=== PATIENT | female | born 1940 | race Caucasian/White ===

== ENCOUNTER 2016-07-23 21:43 | Inpatient (IN) ==
[2016-07-23] MEDS ORDERED: 0.9 % Sodium Chloride 1,000 ML IVC ONE (22:15)
--- NOTE | 2016-07-23 22:29 | Emergency Department Note ---
Disposition Clinical Impression: Humerus distal fracture Qualifiers: Encounter type: initial encounter Fracture type: closed Fracture morphology: other fracture Fracture alignment: displaced Laterality: right Qualified Code(s) : S42.491A - Other displaced fracture of lower end of right humerus, initial encounter for closed fracture Disposition: Admitted As Inpatient Condition: Fair Time of Disposition: 23:06 Fall HPI - General Chief Complaint: ED Fall Stated Complaint: fall/arm & foot pain Time Seen by Provider: 07/23/16 22:00 Source: patient, EMS Nursing Notes Reviewed: Yes Vital Signs Reviewed: Yes - History of Present Illness HPI Narrative: Patient is a 25-year-old female who complains of fall 2 hours ago. Patient states she does not know why she fell. Patient states that she fell while trying to use the bathroom she bent over to pull her pants down and fell over and hit the sink with her arms. Patient's states that he tried to assist her down to the floor but then she hit the right side of her head off the sink but said it did not appear that she hit her head too hard. He said that he tried to assist her to the floor. He states that the floor in the bathroom his carpet and this is the third time she has felt in the bathroom. Patient states that it has been a few years since she fell last. Patient denies anti-coagulation use. Patient is on Percocet 10 325 4 times a day for chronic pain. Patient states that her medications did not make her uneasy on her feet. - Related Data Home Medications Medication Instructions Recorded Confirmed Aspirin [Adult Low Dose Aspirin EC] 81 mg PO DAILY 08/22/15 07/24/16 Enalapril Maleate [Vasotec] 10 mg PO BID 08/22/15 07/24/16 Furosemide [Lasix] 20 mg PO DAILY 08/22/15 07/24/16 Insulin Glargine,Hum.rec.anlog 110 unit SQ QAM 08/22/15 07/24/16 [Lantus Solostar] OxyCODONE/APAP 10/325 [Percocet 1 tab PO QID PRN 08/22/15 07/24/16 10/325 MG] Pioglitazone HCl [Actos] 30 mg PO DAILY 08/22/15 07/24/16 Pregabalin [Lyrica] 150 mg PO TID 08/22/15 07/24/16 Simvastatin [Zocor] 20 mg PO DAILY 08/22/15 07/24/16 Cyanocobalamin (B-12) [Vitamin B12] 1 ml IM QMONTH 07/24/16 07/24/16 Levocetirizine Dihydrochloride 5 mg PO DAILY 07/24/16 07/24/16 [Xyzal] Nystatin POWDER [Nystop] 1 appl TP BID 07/24/16 07/24/16 Previous Rx's Medication Instructions Recorded Ferrous Sulfate 325 mg PO BID #60 tablet 08/28/15 Omeprazole [PriLOSEC] 40 mg PO DAILY@0630 #30 capsule 08/28/15 Folic Acid 1 mg PO DAILY #90 tablet 09/24/15 Allergies Allergy/AdvReac Type Severity Reaction Status Date / Time No Known Allergies Allergy Verified 01/10/16 12:42 Review of Systems: Patient denies headache, nausea, vomiting, shortness of breath, chest pain, heart palpitations, abdominal pain, diarrhea. Patient admits to shoulder pain, bilateral upper arm pain, bilateral lower arm pain or hip pain and bilateral thigh pain left foot pain Fall PMH - Past Medical History Medical history: Reports: arthritis, CHF, COPD, diabetes, hypertension Surgical history: Reports: non-contributory Psychiatric history: Reports: depression - Social History Smoking Status: Never smoker Alcohol use: Reports: none Drug use: Reports: none Physical Exam Vital Signs Temperature 98.4 F 07/23/16 21:48 Pulse Rate 82 07/23/16 21:48 Respiratory Rate 18 07/23/16 21:48 Blood Pressure 131/57 07/23/16 21:48 O2 Sat by Pulse Oximetry 100 07/23/16 21:48 Temperature 98.4 F 07/23/16 21:48 Pulse Rate 82 07/23/16 21:48 Respiratory Rate 18 07/23/16 21:48 Blood Pressure 131/57 07/23/16 21:48 O2 Sat by Pulse Oximetry 100 07/23/16 21:48 Oxygen Delivery Oxygen Delivery Room Air -General Appearance: Patient is a 35-year-old female laying down in bed and appears very uncomfortable secondary to pain but is alert and oriented 3. Patient complains of pain everywhere with the exception of cervical spine and abdomen - Head Head exam: atraumatic, normocephalic, normal inspection - Eye Eye exam: Present: normal appearance, PERRL, EOMI, negative for scleral icterus negative for conjunctival pallor - ENT ENT exam: normal exam, normal oropharynx, mucous membranes moist - Neck Neck exam: Present: normal inspection, full ROM, trachea midline, negative JVD - Chest Chest inspection: Present: Patient has bilateral equal rise and fall of chest wall. Tender to palpation - Respiratory Respiratory exam: Clear to auscultation bilaterally without wheezes rales or rhonchi Cardiovascular Cardiovascular exam: Regular rate and rhythm patient has A. fib and ventricular rate of 79 beats. On EKG. No murmurs gallops or rubs. - Abdominal Exam Abdominal exam: Present: soft, nondistended, Non-Tender light and deep palpation in all quadrants. Bowel sounds normoactive throughout all 4 quadrants. Negative for hyper or hyperresonance. - Extremities Exam Extremities exam: Present: Patient has tenderness to palpation bilateral: Shoulders, humerus, elbows, forearms, wrists, hands, femurs, pelvis. Patient has tenderness to palpation left foot. Patient has partially avulsed toenail left foot great toe. - Skin Skin exam: Present: warm, dry, intact, normal color - General Limitations: no limitations General appearance: alert, in distress Course Course Narrative: Patient seen and examined. An injury for patient's pain complaints ordered, labs ordered, EKG ordered head CT ordered Vital Signs Temperature 98.4 F 07/23/16 21:48 Pulse Rate 82 07/23/16 21:48 Respiratory Rate 18 07/23/16 21:48 Blood Pressure 131/57 07/23/16 21:48 O2 Sat by Pulse Oximetry 100 07/23/16 21:48 Temperature 98.1 F 07/25/16 09:45 Pulse Rate 83 07/25/16 09:45 Respiratory Rate 16 07/25/16 09:45 Blood Pressure 134/56 07/25/16 09:45 O2 Sat by Pulse Oximetry 98 07/25/16 09:45 Oxygen Delivery Oxygen Delivery Room Air Fall - [facility] Narrative Medical decision making narrative: Patient condition concerning for musculoskeletal pain secondary to fall. Patient states she is unsure of why she fell. Patient states that she is [place] bathroom when she fell. She is unsure if she lost consciousness or not. CT head been ordered. X-rays to include chest x-ray, shoulder x-ray, bilateral humerus, radius and wrist x-rays ordered, pelvis and bilateral femur and left foot x-rays ordered as well secondary to complaints of pain in those areas secondary to fall. Patient will be signed out to night team. Dr. De León will take over care of patient. - Medical Records Medical records reviewed: Yes I reviewed the patient's medical records. - Lab Data Lab results reviewed: Yes I reviewed the patient's lab results. Lab results narrative: Short CBC 07/23/16 Range/Units 22:43 WBC 8.3 (4.3-11.1) K/mcL Hgb 10.7 L (11.5-15.4) g/dL Hct 33.6 L (35.3-44.9) % Plt Count 213 (140-400) K/mcL Neutrophils # 6.6 (1.6-8.9) K/mcL BMP 07/23/16 Range/Units 22:43 Sodium 135 L (136-145) mEq/L Potassium 5.6 H (3.5-4.5) mEq/L Chloride 101 (98-109) mEq/L Carbon Dioxide 26 (19-29) mEq/L BUN 39 H (7-20) mg/dL Creatinine 1.39 H (0.57-1.11) mg/dL Glucose 222 H (70-99) mg/dL Calcium 9.4 (8.6-10.8) mg/dL Cardiac Enzymes 07/23/16 Range/Units 22:43 Troponin I 0.02 (0-0.03) ng/mL Result diagrams: 07/25/16 04:03 07/25/16 04:03 Lab Results 07/23/16 07/23/16 07/23/16 Range/Units 22:43 22:43 22:43 WBC 8.3 (4.3-11.1) K/mcL RBC 3.72 L (3.82-4.97) M/mcL Hgb 10.7 L (11.5-15.4) g/dL Hct 33.6 L (35.3-44.9) % MCV 90.3 (83.0-100.0) fL MCH 28.8 (28.0-33.3) pg MCHC 31.8 (31.6-35.5) g/dL RDW 15.6 H (11.5-14.5) % Plt Count 213 (140-400) K/mcL MPV 11.0 (9.4-12.4) fL Immature Gran % 0.5 (0-4) % Seg Neutrophils % 79.7 % Lymphocytes % 7.5 % Monocytes % 6.7 % Eosinophils % 5.1 % Basophils % 0.5 % Neutrophils # 6.6 (1.6-8.9) K/mcL Lymphocytes # 0.6 (0.6-4.6) K/mcL Monocytes # 0.6 (0.0-1.3) K/mcL Eosinophils # 0.4 (0.0-0.6) K/mcL Basophils # 0.0 (0.0-0.2) K/mcL Sodium 135 L (136-145) mEq/L Potassium 5.6 H (3.5-4.5) mEq/L Chloride 101 (98-109) mEq/L Carbon Dioxide 26 (19-29) mEq/L BUN 39 H (7-20) mg/dL Creatinine 1.39 H (0.57-1.11) mg/dL Est GFR ( Amer) 45 L (> 60) Est GFR (Non-Af Amer) 37 L (> 60) BUN/Creatinine Ratio 28 H (6-26) Glucose 222 H (70-99) mg/dL POC Glucose (58-89) Calculated Osmolality 296 (280-300) Calcium 9.4 (8.6-10.8) mg/dL Troponin I 0.02 (0-0.03) ng/mL Urine Color (Yellow) Urine Clarity (Clear) Urine pH (5.0-8.0) pH Units Ur Specific [place] (1.010-1.025) Urine Protein (Neg-Trace) mg/dL Urine Glucose (UA) (Normal) mg/dL Urine Ketones (Negative) mg/dL Urine Blood (Negative) Urine Nitrite (Negative) Urine Bilirubin (Negative) Urine Urobilinogen (Normal) mg/dL Ur Leukocyte Esterase (Negative) Urine Microscopic RBC (0-3) per hpf Urine Microscopic WBC (0-3) per hpf Ur Squamous Epith Cells (None-Few) per lpf Urine Bacteria (None-Few) per hpf Hyaline Casts (None-Few) per lpf 07/24/16 07/24/16 Range/Units 01:09 01:43 WBC (4.3-11.1) K/mcL RBC (3.82-4.97) M/mcL Hgb (11.5-15.4) g/dL Hct (35.3-44.9) % MCV (83.0-100.0) fL MCH (28.0-33.3) pg MCHC (31.6-35.5) g/dL RDW (11.5-14.5) % Plt Count (140-400) K/mcL MPV (9.4-12.4) fL Immature Gran % (0-4) % Seg Neutrophils % % Lymphocytes % % Monocytes % % Eosinophils % % Basophils % % Neutrophils # (1.6-8.9) K/mcL Lymphocytes # (0.6-4.6) K/mcL Monocytes # (0.0-1.3) K/mcL Eosinophils # (0.0-0.6) K/mcL Basophils # (0.0-0.2) K/mcL Sodium (136-145) mEq/L Potassium (3.5-4.5) mEq/L Chloride (98-109) mEq/L Carbon Dioxide (19-29) mEq/L BUN (7-20) mg/dL Creatinine (0.57-1.11) mg/dL Est GFR ( Amer) (> 60) Est GFR (Non-Af Amer) (> 60) BUN/Creatinine Ratio (6-26) Glucose (70-99) mg/dL POC Glucose 176 H (58-89) Calculated Osmolality (280-300) Calcium (8.6-10.8) mg/dL Troponin I (0-0.03) ng/mL Urine Color Yellow (Yellow) Urine Clarity Clear (Clear) Urine pH 5.5 (5.0-8.0) pH Units Ur Specific [place] 1.021 (1.010-1.025) Urine Protein Trace (Neg-Trace) mg/dL Urine Glucose (UA) >=1000 H (Normal) mg/dL Urine Ketones Negative (Negative) mg/dL Urine Blood Negative (Negative) Urine Nitrite Negative (Negative) Urine Bilirubin Negative (Negative) Urine Urobilinogen Normal (Normal) mg/dL Ur Leukocyte Esterase Negative (Negative) Urine Microscopic RBC 0-3 (0-3) per hpf Urine Microscopic WBC 0-3 (0-3) per hpf Ur Squamous Epith Cells Many H (None-Few) per lpf Urine Bacteria None Seen (None-Few) per hpf Hyaline Casts None Seen (None-Few) per lpf - EKG Data EKG attestation: Yes I reviewed and interpreted this EKG. EKG results narrative: EKG dated 07/23/2016 at 2234 hrs. shows atrial fibrillation at a rate of 79 bpm with no acute ST elevations or deviations and the leads. Previous EKG dated 10/2015 shows first-degree AV block with what appears underlying sinus rhythm with no acute ST elevations S.B.A.R. - S.B.A.R. Transition of Care: Physician care handed over to Dr. Khalif De León. He has accepted continuation of care. Situation: Demographics, MOA Background: Presenting Complaint, Relevant PMH, Meds, & Allergies Assessment: Vital Signs, Course and respsone to treatment, Exam Concerns, Patient/Family Expectation Recommendation: Barrier(s) to disposition, Recommendation based on pending studies, treatments, or consults S.B.A.R. Report Given to: Dr. Khalif De León S.B.A.RDurga Repor Time: 23:31 Attestation Statement - Attestation Attestation: I examined this patient and my medical decision-making was reviewed with the NEEDLE POLISHER/PA/Advanced Practice Nurse/Resident Physician. I agree with the documented findings, disposition and treatment plan as described except to the extent set forth below. Patient presents to the emergency department after a fall. Patient states she was getting onto the toilet and lost her balance. Her head on the sink. Complaining of pain diffusely in her right arm. Also bilateral leg pain. On exam she is awake and alert. She is holding her right arm to her side and refuses to move. Good radial pulse with hand pink and warm. Diffuse leg pain bilaterally. Will not bend her knees. Dried blood on the left toes. Plan. Patient control and imaging. Will be signed out to overnight babysitter.
[2016-07-23] MEDS ORDERED: *HR* OxyCODONE/APAP 5/325 TABLET PO ONE (22:30)
[2016-07-23 22:52] LABS: Basophils % 0.5 %; Eosinophils # 0.4 K/mcL (0.0-0.6); Eosinophils % 5.1 %; Hematocrit 33.6 % (35.3-44.9); Hemoglobin 10.7 g/dL (11.5-15.4); Immature Granulocytes % 0.5 % (0-4); Lymphocytes # 0.6 K/mcL (0.6-4.6); Lymphocytes % 7.5 %; Mean Corpuscular HGB Conc 31.8 g/dL (31.6-35.5); Mean Corpuscular Hemoglobin 28.8 pg (28.0-33.3); Mean Corpuscular Volume 90.3 fL (83.0-100.0); Monocytes # 0.6 K/mcL (0.0-1.3); Monocytes % 6.7 %; Neutrophils # 6.6 K/mcL (1.6-8.9); Platelet Count 213 K/mcL (140-400); Red Blood Count 3.72 M/mcL (3.82-4.97); Red Cell Distribution Width 15.6 % (11.5-14.5); Segmented Neutrophils % 79.7 %
[2016-07-23 23:02] LABS: Calcium 9.4 mg/dL (8.6-10.8); Potassium 5.6 mEq/L (3.5-4.5)
[2016-07-23] MEDS ORDERED: *HR* HYDROmorphone 2 MG/ML SYRINGE IV ONE (23:51)
[2016-07-24] MEDS ORDERED: *HR* Morphine 2 MG/ML SYRINGE IV ONE ×2 (00:54→03:39)
[2016-07-24 01:48] LABS: Bilirubin,Urine Negative (Negative); Blood,Urine Negative (Negative); Clarity,Urine Clear (Clear); Color,Urine Yellow (Yellow); Glucose,Urine (UA) >=1000 mg/dL (Normal); Ketones,Urine Negative (Negative); Leukocyte Esterase,Urine Negative (Negative); Nitrite,Urine Negative (Negative); PH,Urine 5.5 pH Units (5.0-8.0); Protein,Urine Trace mg/dL (Neg-Trace); Specific Gravity,Urine 1.021 (1.010-1.025); Urobilinogen,Urine Normal (Normal)
[2016-07-24 01:51] LABS: Bacteria,Urine None Seen per hpf (None-Few); Hyaline Casts,Urine None Seen per lpf (None-Few); RBC,Urine 0-3 per hpf (0-3); Squamous Epithelial Cell,Urine Many per lpf (None-Few); WBC,Urine 0-3 per hpf (0-3)
--- NOTE | 2016-07-24 02:12 | Emergency Department Note ---
Disposition Clinical Impression: Humerus distal fracture Qualifiers: Encounter type: initial encounter Fracture type: closed Fracture morphology: other fracture Fracture alignment: displaced Laterality: right Qualified Code(s) : S42.491A - Other displaced fracture of lower end of right humerus, initial encounter for closed fracture Disposition: Admitted As Inpatient Condition: Fair Referrals: NO,PCP [Non-Partnered Physician] - Forms: ED Satisfaction Letter Fall HPI - General Chief Complaint: ED Fall Stated Complaint: fall/arm & foot pain Time Seen by Provider: 07/23/16 22:00 Source: patient, EMS - History of Present Illness HPI Narrative: 75-year-old female with a history of diastolic heart failure, hypertension, insulin dependent diabetes presents to emergency department after a fall at home. She was sitting on a toilet, fell forward landing with 2 outstretched arms. Complains of bilateral arm pain and bilateral leg pain. No abdominal tenderness on examination or overlying signs of injury. Multiple x-rays performed from Drs. prior to sign out. X-ray shows a right distal oblique displaced humeral fracture. Patient having significant pain, unable to get out of bed and lives only with her elderly who cannot care for her to get her home. Plan to admit for pain control and orthopedic consultation. She has some lacerations at the base of her fourth and fifth metatarsal phalangeal joint that suturing would likely not be beneficial. These wounds were cleaned and a sterile dressing was placed. These wounds will need rechecked and possibly reevaluated. No other injury on imaging. No new pain found on reexamination. Discussed with the on-call hospitalist, Dr. Estrada who accepts for admission. - Related Data Home Medications Medication Instructions Recorded Confirmed Aspirin [Adult Low Dose Aspirin EC] 81 mg PO DAILY 08/22/15 09/24/15 Enalapril Maleate [Vasotec] 10 mg PO BID 08/22/15 09/24/15 Furosemide [Lasix] 20 mg PO DAILY 08/22/15 09/24/15 Insulin Aspart Prot/Insuln Asp 2 - 8 unit SQ ACHS 08/22/15 09/24/15 [Novolog Mix 70-30 Flexpen Syrn] Insulin Glargine,Hum.rec.anlog 40 unit SQ QAM 08/22/15 09/24/15 [Lantus Solostar] Metoprolol [Lopressor] 25 mg PO BID 08/22/15 09/24/15 OxyCODONE/APAP 10/325 [Percocet 1 each PO BID 08/22/15 09/24/15 10/325 MG] Pioglitazone HCl [Actos] 30 mg PO DAILY 08/22/15 09/24/15 Pregabalin [Lyrica] 150 mg PO TID 08/22/15 09/24/15 Simvastatin [Zocor] 20 mg PO DAILY 08/22/15 09/24/15 Previous Rx's Medication Instructions Recorded Ferrous Sulfate 325 mg PO BID #60 tablet 08/28/15 Omeprazole [PriLOSEC] 40 mg PO DAILY@0630 #30 capsule 08/28/15 Cyanocobalamin (B-12) [Vitamin B12] 1,000 mcg PO DAILY #90 tablet 09/24/15 Folic Acid 1 mg PO DAILY #90 tablet 09/24/15 Cetirizine HCl [Zyrtec] 10 mg PO DAILY #14 capsule 01/10/16 Fluconazole [Diflucan] 150 mg PO ONCE #1 tablet 01/10/16 Tolnaftate [Tinactin] 30 gm TP BID #60 cream..g. 01/10/16 Cephalexin [Keflex] 500 mg PO TID #21 capsule 02/25/16 Allergies Allergy/AdvReac Type Severity Reaction Status Date / Time No Known Allergies Allergy Verified 01/10/16 12:42 Fall PMH - Past Medical History Medical history: Reports: arthritis, CHF, COPD, diabetes, hypertension Surgical history: Reports: non-contributory Psychiatric history: Reports: depression - Social History Smoking Status: Never smoker Alcohol use: Reports: none Drug use: Reports: none Physical Exam - General Limitations: no limitations General appearance: alert, in distress Course Vital Signs Temperature 98.4 F 07/23/16 21:48 Pulse Rate 82 07/23/16 21:48 Respiratory Rate 18 07/23/16 21:48 Blood Pressure 131/57 07/23/16 21:48 O2 Sat by Pulse Oximetry 100 07/23/16 21:48 Temperature 98.4 F 07/23/16 21:48 Pulse Rate 80 07/24/16 01:47 Respiratory Rate 16 07/24/16 01:47 Blood Pressure 138/62 07/24/16 01:47 O2 Sat by Pulse Oximetry 100 07/24/16 01:47 Oxygen Delivery Oxygen Delivery Room Air Fall - Lab Data Result diagrams: 07/23/16 22:43 07/23/16 22:43 Lab Results 07/23/16 07/23/16 07/23/16 Range/Units 22:43 22:43 22:43 WBC 8.3 (4.3-11.1) K/mcL RBC 3.72 L (3.82-4.97) M/mcL Hgb 10.7 L (11.5-15.4) g/dL Hct 33.6 L (35.3-44.9) % MCV 90.3 (83.0-100.0) fL MCH 28.8 (28.0-33.3) pg MCHC 31.8 (31.6-35.5) g/dL RDW 15.6 H (11.5-14.5) % Plt Count 213 (140-400) K/mcL MPV 11.0 (9.4-12.4) fL Immature Gran % 0.5 (0-4) % Seg Neutrophils % 79.7 % Lymphocytes % 7.5 % Monocytes % 6.7 % Eosinophils % 5.1 % Basophils % 0.5 % Neutrophils # 6.6 (1.6-8.9) K/mcL Lymphocytes # 0.6 (0.6-4.6) K/mcL Monocytes # 0.6 (0.0-1.3) K/mcL Eosinophils # 0.4 (0.0-0.6) K/mcL Basophils # 0.0 (0.0-0.2) K/mcL Sodium 135 L (136-145) mEq/L Potassium 5.6 H (3.5-4.5) mEq/L Chloride 101 (98-109) mEq/L Carbon Dioxide 26 (19-29) mEq/L BUN 39 H (7-20) mg/dL Creatinine 1.39 H (0.57-1.11) mg/dL Est GFR ( Amer) 45 L (> 60) Est GFR (Non-Af Amer) 37 L (> 60) BUN/Creatinine Ratio 28 H (6-26) Glucose 222 H (70-99) mg/dL POC Glucose (58-89) Calculated Osmolality 296 (280-300) Calcium 9.4 (8.6-10.8) mg/dL Troponin I 0.02 (0-0.03) ng/mL Urine Color (Yellow) Urine Clarity (Clear) Urine pH (5.0-8.0) pH Units Ur Specific [place] (1.010-1.025) Urine Protein (Neg-Trace) mg/dL Urine Glucose (UA) (Normal) mg/dL Urine Ketones (Negative) mg/dL Urine Blood (Negative) Urine Nitrite (Negative) Urine Bilirubin (Negative) Urine Urobilinogen (Normal) mg/dL Ur Leukocyte Esterase (Negative) Urine Microscopic RBC (0-3) per hpf Urine Microscopic WBC (0-3) per hpf Ur Squamous Epith Cells (None-Few) per lpf Urine Bacteria (None-Few) per hpf Hyaline Casts (None-Few) per lpf 07/24/16 07/24/16 Range/Units 01:09 01:43 WBC (4.3-11.1) K/mcL RBC (3.82-4.97) M/mcL Hgb (11.5-15.4) g/dL Hct (35.3-44.9) % MCV (83.0-100.0) fL MCH (28.0-33.3) pg MCHC (31.6-35.5) g/dL RDW (11.5-14.5) % Plt Count (140-400) K/mcL MPV (9.4-12.4) fL Immature Gran % (0-4) % Seg Neutrophils % % Lymphocytes % % Monocytes % % Eosinophils % % Basophils % % Neutrophils # (1.6-8.9) K/mcL Lymphocytes # (0.6-4.6) K/mcL Monocytes # (0.0-1.3) K/mcL Eosinophils # (0.0-0.6) K/mcL Basophils # (0.0-0.2) K/mcL Sodium (136-145) mEq/L Potassium (3.5-4.5) mEq/L Chloride (98-109) mEq/L Carbon Dioxide (19-29) mEq/L BUN (7-20) mg/dL Creatinine (0.57-1.11) mg/dL Est GFR ( Amer) (> 60) Est GFR (Non-Af Amer) (> 60) BUN/Creatinine Ratio (6-26) Glucose (70-99) mg/dL POC Glucose 176 H (58-89) Calculated Osmolality (280-300) Calcium (8.6-10.8) mg/dL Troponin I (0-0.03) ng/mL Urine Color Yellow (Yellow) Urine Clarity Clear (Clear) Urine pH 5.5 (5.0-8.0) pH Units Ur Specific [place] 1.021 (1.010-1.025) Urine Protein Trace (Neg-Trace) mg/dL Urine Glucose (UA) >=1000 H (Normal) mg/dL Urine Ketones Negative (Negative) mg/dL Urine Blood Negative (Negative) Urine Nitrite Negative (Negative) Urine Bilirubin Negative (Negative) Urine Urobilinogen Normal (Normal) mg/dL Ur Leukocyte Esterase Negative (Negative) Urine Microscopic RBC 0-3 (0-3) per hpf Urine Microscopic WBC 0-3 (0-3) per hpf Ur Squamous Epith Cells Many H (None-Few) per lpf Urine Bacteria None Seen (None-Few) per hpf Hyaline Casts None Seen (None-Few) per lpf Attestation Statement - Attestation Attestation: I, Juvenal Arenas MD, personally performed a history and physical exam of the patient and discussed their management with the resident. I reviewed the resident's note and agree with the documented findings, medical decision making , and plan of care. This patient was signed out at shift change from Dr. Hayes and Dr. Chapin. Please refer to their notes for complete details of history and physical examination. Patient is a 75-year-old female who fell forward in her bathroom onto the floor. She complains of pain in both arms and both legs and both feet. At shift change she is awaiting x-rays. The x-rays returned and were all negative other than a displaced oblique fracture of the distal right humerus. Patient is very obese and is in a lot of pain. She will be admitted to the hospitalist for pain control and orthopedic consultation in the morning. On examination patient is a well-developed obese elderly female in no acute distress. She is alert and oriented 3. There is no cyanosis or diaphoresis. There is diffuse swelling and tenderness over the distal right upper arm and elbow area. Normal neurovascular function intact distally. The hospitalist, Dr. Estrada, was consulted and accepted admission of the patient.
--- NOTE | 2016-07-24 03:10 | Internal Med History&Physical ---
<Brendon Calderon - Last Filed: 07/24/16 03:08> Date of Encounter: 07/24/16 Time of Encounter: 03:08 Assessment and Plan (1) Humerus distal fracture Current visit: Yes Status: Acute XR showed displaced fracture of lower R humerus from mechanical fall. Pain control with toradol and dilaudid. NPO currently. Consult Ortho This is an intermediate risk surgery and according to the ZENON's revised score patient has a moderate risk of cardiac event with surgery. There is no need further cardia testing. Qualifiers: Encounter type: initial encounter Fracture type: closed Fracture morphology: other fracture Fracture alignment: displaced Laterality: right Qualified Code(s): S42.491A - Other displaced fracture of lower end of right humerus, initial encounter for closed fracture (2) CHF (congestive heart failure) Current visit: Yes Status: Chronic No signs of acute CHF. Recommend discontinuing Pioglizazone as contraindicated in setting of CHF. Qualifiers: Congestive heart failure type: diastolic Congestive heart failure chronicity: chronic Qualified Code(s): I50.32 - Chronic diastolic (congestive ) heart failure (3) Diabetes mellitus Current visit: Yes Status: Chronic Insulin dependent type 2 DM Patient currently NPO Will check BG Q6H with corrective SSI. Qualifiers: Diabetes mellitus type: type 2 Diabetes mellitus complication status: with unspecified complications Diabetes mellitus half-way insulin use: with half-way use Qualified Code(s): E11.8 - Type 2 diabetes mellitus with unspecified complications; Z79.4 - penitentiary (current) use of insulin (4) COPD (chronic obstructive pulmonary disease) Current visit: Yes Status: Chronic Chronic COPD, no signs of acute exacerbations. Qualifiers: COPD type: unspecified COPD Qualified Code(s): J44.9 - Chronic obstructive pulmonary disease, unspecified (5) Anemia Current visit: Yes Status: Chronic History of Iron def anemia. Hgb currently 10.7. Continue to monitor. Qualifiers: Anemia type: iron deficiency Iron deficiency anemia type: unspecified iron deficiency Qualified Code(s): D50.9 - Iron deficiency anemia, unspecified (6) DVT prophylaxis Current visit: No Status: Resolved EPCDs Internal Medicine - H&P: HPI Chief complaint: fall, arm pain Admitted From: Emergency Dept Plans for Post Hospital Care: Home History of present illness: Ms. Aguayo is a 75 year old female that presented to the ED for fall yesterday from the toilet. Fell on outstretched arms, complaining of arm pain at presentation. XR of R arm showed humeral fracture. Patient currently complaining of severe R arm pain that has slightly improved with dilaudid and morphine in the ED. Patient denies syncope, dizziness, weakness, nausea vomiting , diarrhea, abdominal pain, chest pain, or shortness of breath. Past Med Surg Social Fam HX - Past Medical History Medical history: arthritis, CHF (diastolic), COPD, diabetes (type 2), hypertension, other (anemia) Psychiatric history: depression - Past Surgical History Surgical History: non-contributory, cholecystectomy, hip replacement, hysterectomy, other (back surgery) - Social History Smoking Status: Never smoker Smokeless Tobacco Status: No Alcohol use: none Drug use: none - Family History Father Hx Family Cancer: Yes (leukemia) Mother Hx Family Cardiac Disorders: Yes (heart disease) Internal Medicine - H&P: Meds Aspirin [Adult Low Dose Aspirin EC] 81 mg PO DAILY 08/22/15 [History] Enalapril Maleate [Vasotec] 10 mg PO BID 08/22/15 [History] Furosemide [Lasix] 20 mg PO DAILY 08/22/15 [History] Insulin Aspart Prot/Insuln Asp [Novolog Mix 70-30 Flexpen Syrn] 2 - 8 unit SQ ACHS 08/22/15 [History] Insulin Glargine,Hum.rec.anlog [Lantus Solostar] 40 unit SQ QAM 08/22/15 [ History] Metoprolol [Lopressor] 25 mg PO BID 08/22/15 [History] OxyCODONE/APAP 10/325 [Percocet 10/325 MG] 1 each PO BID 08/22/15 [History] Pioglitazone HCl [Actos] 30 mg PO DAILY 08/22/15 [History] Pregabalin [Lyrica] 150 mg PO TID 08/22/15 [History] Simvastatin [Zocor] 20 mg PO DAILY 08/22/15 [History] Ferrous Sulfate 325 mg PO BID #60 tablet 08/28/15 [Rx] Omeprazole [PriLOSEC] 40 mg PO DAILY@0630 #30 capsule 08/28/15 [Rx] Cyanocobalamin (B-12) [Vitamin B12] 1,000 mcg PO DAILY #90 tablet 09/24/15 [Rx] Folic Acid 1 mg PO DAILY #90 tablet 09/24/15 [Rx] Cetirizine HCl [Zyrtec] 10 mg PO DAILY #14 capsule 01/10/16 [Rx] Fluconazole [Diflucan] 150 mg PO ONCE #1 tablet 01/10/16 [Rx] Tolnaftate [Tinactin] 30 gm TP BID #60 cream..g. 01/10/16 [Rx] Cephalexin [Keflex] 500 mg PO TID #21 capsule 02/25/16 [Rx] Allergies No Known Allergies Allergy (Verified 01/10/16 12:42) All Systems PM: A 10-system review of systems was performed and is negative for pertinent findings except as documented above in the HPI. - Constitutional Constitutional: no chills, no fever(s) - EENT Eyes: no change in vision, no pain Ears: no tinnitus Nose, mouth and throat: no dysphagia - Cardiovascular Cardiovascular ROS IM: no chest pain, no diaphoresis, no dyspnea, no lightheadedness, no palpitations, no syncope - Respiratory Respiratory: no cough, no dyspnea, no wheezing, no excessive phlegm production - Gastrointestinal Gastrointestinal: no abdominal pain, no diarrhea, no hematemesis, no hematochezia, no melena, no nausea, no vomiting - Genitourinary Genitourinary: no dysuria, no flank pain, no hematuria - Integumentary Integumentary IM: no rash - Neurological Neurological ROS: no focal weakness - Hematologic/Lymphatic Hematologic/Lymphatic: no easy bleeding - Constitutional Vitals: Temp Pulse Resp BP Pulse Ox 98.4 F 80 16 138/62 100 07/23/16 21:48 07/24/16 01:47 07/24/16 01:47 07/24/16 01:47 07/24/16 01:47 General appearance: Present: cooperative, A&O X 3, pleasant, severe distress, answers questions appropriately - Head Head exam: Present: atraumatic, normocephalic - Eye Eye exam: Present: EOMI, PERRL, conjuntiva pink, sclera anicteric Pupils: Present: PERRL - Neck Neck exam general surgery: Present: full ROM, supple, trachea midline. Absent: lymphadenopathy - Respiratory Respiratory exam: Present: decreased breath sounds, CTAB. Absent: accessory muscle use, chest wall tenderness, rales, rhonchi, wheezes - Cardiovascular Cardiovascular exam: Present: distant heart sounds, RRR, +S1, +S2. Absent: diastolic murmur, gallop, rubs, systolic murmur - GI/Abdominal GI/Abdominal exam: Present: normal bowel sounds, soft, no peritoneal signs. Absent: distended, tenderness - Extremities Exam Extremities exam: Present: warm. Absent: calf tenderness, cyanotic - Neurological Exam Neurological exam: Present: alert, oriented X3, no focal deficits. Absent: facial droop, speech deficit - Skin Skin exam: Present: dry, intact Internal Med - H&P Results - Labs CBC & Chem 7: 07/23/16 22:43 07/23/16 22:43 <Brandon Paredes H - Last Filed: 07/24/16 03:45> Date of Encounter: 07/24/16 Internal Medicine - H&P: HPI History of present illness: Ms. Aguayo is a 75 year old female All Systems PM: A 10-system review of systems was performed and is negative for pertinent findings except as documented above in the HPI. - Constitutional Vitals: Temp Pulse Resp BP Pulse Ox 98.4 F 80 16 138/62 100 07/23/16 21:48 07/24/16 01:47 07/24/16 01:47 07/24/16 01:47 07/24/16 01:47 Internal Med - H&P Results - Labs CBC & Chem 7: 07/23/16 22:43 07/23/16 22:43 - Attending Attestation Right upper extremity immobilization Additional past medical history osteoarthritis, morbid obesity and depression. I examined this patient and my medical decision-making was reviewed with the CHECKER STOCKER/PA/Advanced Practice Nurse/Resident Physician. I agree with the documented findings, disposition and treatment plan as described except to the extent set forth below.
[2016-07-24] MEDS ORDERED: Dextrose Gel 15 GM PO PRN ×2 (03:11)
[2016-07-24] MEDS ORDERED: Ondansetron 4 MG/2 ML VIAL IVP PRN (03:11)
[2016-07-24] MEDS ORDERED: D5% in Water 1,000 ML IV PRN (03:11)
[2016-07-24] MEDS ORDERED: Naloxone 0.4 MG/ML INJ IVP PRN (03:11)
[2016-07-24] MEDS ORDERED: *HR* Dextrose 50 % in Water (Syg) 50 ML SYRINGE IVP PRN (03:11)
[2016-07-24] MEDS ORDERED: Ketorolac 30 MG/ML VIAL IVP PRN (03:20)
[2016-07-24] MEDS: 0.9 % Sodium Chloride 1,000 ML IVC SCH ×2 (03:52→10:04)
[2016-07-24] MEDS: *HR* HYDROmorphone (PF) 1 MG/ML SYRINGE IVP PRN (05:21)
[2016-07-24 05:40] LABS: Basophils # 0.1 K/mcL (0.0-0.2); Basophils % 0.5 %; Eosinophils # 0.4 K/mcL (0.0-0.6); Eosinophils % 4.2 %; Hemoglobin 9.8 g/dL (11.5-15.4); Immature Granulocytes % 0.5 % (0-4); Lymphocytes # 0.9 K/mcL (0.6-4.6); Lymphocytes % 8.8 %; Mean Corpuscular HGB Conc 31.6 g/dL (31.6-35.5); Mean Corpuscular Hemoglobin 28.8 pg (28.0-33.3); Mean Corpuscular Volume 91.2 fL (83.0-100.0); Mean Platelet Volume 11.4 fL (9.4-12.4); Monocytes # 0.8 K/mcL (0.0-1.3); Monocytes % 7.7 %; Neutrophils # 7.8 K/mcL (1.6-8.9); Platelet Count 195 K/mcL (140-400); Red Cell Distribution Width 15.7 % (11.5-14.5); Segmented Neutrophils % 78.3 %
[2016-07-24] MEDS: Insulin LISPRO 300 UNITS/3 ML VIAL SQ SCH ×3 (05:43→17:47)
[2016-07-24 05:55] LABS: Calcium 9.2 mg/dL (8.6-10.8); Potassium 5.5 mEq/L (3.5-4.5)
[2016-07-24] MEDS: Pantoprazole 40 MG VIAL IVP SCH (07:41)
[2016-07-24] MEDS: Pregabalin 75 MG CAPSULE PO SCH ×3 (07:42→20:45)
[2016-07-24] MEDS: Folic Acid 1 MG TABLET PO SCH (07:42)
[2016-07-24] MEDS ORDERED: Furosemide 40 MG/4 ML VIAL IVP ONE (09:11)
[2016-07-24] MEDS ORDERED: Calcium Gluconate 2,000 MG in D5% in Water 100 ML IVPB ONE (09:11)
[2016-07-24] MEDS ORDERED: Magnesium Sulfate 1 GM in D5% in Water 100 ML IVPB ONE (09:11)
[2016-07-24] MEDS ORDERED: Piperacillin/Tazobactam 3.375 GM in D5% in Water (Mini-Bag+) 100 ML IVPB SCH ×2 (10:21→16:30)
[2016-07-24] MEDS ORDERED: Aminoglycoside Consult 1 EACH MC ONE (10:47)
--- NOTE | 2016-07-24 10:56 | Orthopedic Consult Note ---
Date of Encounter: 07/24/16 Time of Encounter: 10:54 Assessment and Plan (1) Humerus distal fracture Current Visit: Yes Status: Acute Right distal humerus fracture will require surgical fixation. Plan for ORIF tomorrow. Procedure as well as r/b/a were discussed with patient and family and expressed understanding. consent signed by and placed in chart. Will need to be NPO after midnight tonight. Continue pain control per hospitalist. Avoid motion of right arm. Keep elevated and ice the right elbow. Qualifiers: Encounter type: initial encounter Fracture type: closed Fracture morphology: other fracture Fracture alignment: displaced Laterality: right Qualified Code(s): S42.491A - Other displaced fracture of lower end of right humerus, initial encounter for closed fracture History of Present Illness Chief complaint: right arm pain HPI: Ms. Aguayo is a 75 year old female who presented to the ER last night after she lost her balance trying to walk to the toilet around 10pm last night. Fell with both arms outstretched. She states her whole body hurts and is aching but worst pain in is right elbow radiating to hand and shoulder. She does complain of numbness and tingling to the right hand. States she had some numbness intermittent before the fall but this is now constant. Pain controlled on exam with pain medication. She was also found to have a foot laceration that patient was unaware of due to diabetic neuropathy. Denies hitting head or LOC. Denies chest pain, SOB, fevers. Past Med Surg Social Fam HX - Past Medical History Medical history: arthritis, CHF, COPD, DVT, diabetes, hypertension, other Psychiatric history: depression - Past Surgical History Surgical History: non-contributory, cholecystectomy, hysterectomy, knee replacement, other - Social History Smoking Status: Never smoker Smokeless Tobacco Status: No Alcohol use: none Drug use: none - Family History Father History Unknown: Yes Hx Family Cancer: Yes (leukemia) Mother History Unknown: Yes Hx Family Cardiac Disorders: Yes (heart disease) Medications and Allergies Aspirin [Adult Low Dose Aspirin EC] 81 mg PO DAILY 08/22/15 [History] Enalapril Maleate [Vasotec] 10 mg PO BID 08/22/15 [History] Furosemide [Lasix] 20 mg PO DAILY 08/22/15 [History] Insulin Glargine,Hum.rec.anlog [Lantus Solostar] 110 unit SQ QAM 08/22/15 [ History] OxyCODONE/APAP 10/325 [Percocet 10/325 MG] 1 tab PO QID PRN 08/22/15 [History] Pioglitazone HCl [Actos] 30 mg PO DAILY 08/22/15 [History] Pregabalin [Lyrica] 150 mg PO TID 08/22/15 [History] Simvastatin [Zocor] 20 mg PO DAILY 08/22/15 [History] Ferrous Sulfate 325 mg PO BID #60 tablet 08/28/15 [Rx] Omeprazole [PriLOSEC] 40 mg PO DAILY@0630 #30 capsule 08/28/15 [Rx] Folic Acid 1 mg PO DAILY #90 tablet 09/24/15 [Rx] Cyanocobalamin (B-12) [Vitamin B12] 1 ml IM QMONTH 07/24/16 [History] Levocetirizine Dihydrochloride [Xyzal] 5 mg PO DAILY 07/24/16 [History] Nystatin POWDER [Nystop] 1 appl TP BID 07/24/16 [History] Allergies No Known Allergies Allergy (Verified 01/10/16 12:42) All Systems Reviewed: A 10-system review of systems was performed and is negative for pertinent findings except as documented above in the HPI. - Constitutional Constitutional: as per HPI - Cardiovascular Cardiovascular: as per HPI - Respiratory Respiratory: as per HPI - Musculoskeletal Musculoskeletal: as per HPI Physical Exam - Constitutional Vitals: Temp Pulse Resp BP Pulse Ox 98.4 F 69 16 95/62 95 07/24/16 06:46 07/24/16 09:33 07/24/16 06:46 07/24/16 09:33 07/24/16 06:46 - Elbow right Location of pain elbow: anterior, posterior Pain modifiers elbow: with motion (There is moderate swelling to the right elbow , ROM of elbow and shoulder was not tested due to known fracture, unable to make full fist secondary to pain in elbow, brisk cap refill, decreased sensation to digits) Swelling: Yes Results - Labs Result Diagrams: 07/24/16 04:55 07/24/16 04:55 Labs: Abnormal lab results RBC 3.40 M/mcL (3.82-4.97) L 07/24/16 04:55 Hgb 9.8 g/dL (11.5-15.4) L 07/24/16 04:55 Hct 31.0 % (35.3-44.9) L 07/24/16 04:55 RDW 15.7 % (11.5-14.5) H 07/24/16 04:55 Potassium 5.5 mEq/L (3.5-4.5) H 07/24/16 04:55 BUN 34 mg/dL (7-20) H 07/24/16 04:55 Creatinine 1.17 mg/dL (0.57-1.11) H 07/24/16 04:55 Est GFR ( Amer) 54 (> 60) L 07/24/16 04:55 Est GFR (Non-Af Amer) 45 (> 60) L 07/24/16 04:55 BUN/Creatinine Ratio 29 (6-26) H 07/24/16 04:55 Glucose 144 mg/dL (70-99) H 07/24/16 04:55 POC Glucose 146 (58-89) H 07/24/16 05:33 Urine Glucose (UA) >=1000 mg/dL (Normal) H 07/24/16 01:43 Ur Squamous Epith Cells Many per lpf (None-Few) H 07/24/16 01:43 H & H 07/24/16 Range/Units 04:55 Hgb 9.8 L (11.5-15.4) g/dL Hct 31.0 L (35.3-44.9) % All other labs normal. - Diagnostic results Shoulder x-ray: report reviewed, image reviewed Elbow x-ray: report reviewed, image reviewed Consult Discharge Plan - Plan Referrals: Amy Ryan MD [Primary Care Provider] - - Attending Attestation Case and plan of care was discussed with the supervising physician who was available for all aspects of care.
[2016-07-24] MEDS: Acetaminophen 325 MG TABLET PO PRN (11:35)
[2016-07-24] MEDS ORDERED: Vancomycin 1,750 MG in D5% in Water 250 ML IVPB SCH (12:00)
[2016-07-24] MEDS: Vancomycin 1,500 MG in D5% in Water 250 ML IVPB SCH (12:25)
--- NOTE | 2016-07-24 12:51 | Internal Med Progress Note ---
Date of Encounter: 07/24/16 Time of Encounter: 10:15 - Subjective Interval history: Patient seen/eval. Longstanding debility, diabetes, diabetic neuropathy. Was seen at [facility] for right heel ulcer, had wound vacc, unsure of antibiotics. She has no feeling from her knees down. She would rise from her motorized wheelchair and then fall, catching herself on Left arm, sustaining left distal humerus fracture. She has left foot plantar laceration toes 3-5, she does not know how it happened. - Constitutional Vitals: Temp Pulse Resp BP Pulse Ox 97.7 F 68 16 92/52 97 07/24/16 11:33 07/24/16 11:33 07/24/16 11:33 07/24/16 11:33 07/24/16 11:33 General appearance: Present: cooperative, A&O X 3, pleasant, severe distress, answers questions appropriately Internal Medicine: Result - Labs CBC & Chem 7: 07/24/16 04:55 07/24/16 04:55 Labs: Short CBC 07/24/16 Range/Units 04:55 WBC 10.0 (4.3-11.1) K/mcL Hgb 9.8 L (11.5-15.4) g/dL Hct 31.0 L (35.3-44.9) % Plt Count 195 (140-400) K/mcL Neutrophils # 7.8 (1.6-8.9) K/mcL BMP 07/24/16 04:55 Sodium 138 Potassium 5.5 H Chloride 107 Carbon Dioxide 23 BUN 34 H Creatinine 1.17 H Glucose 144 H Calcium 9.2 - VTE Documentation of Mechanical Device: Intermittent pneumatic compression device Consult Discharge Plan - Plan Referrals: Amy Ryan MD [Primary Care Provider] -
--- NOTE | 2016-07-24 13:00 | Event Note ---
<Deshawn Gtz - Last Filed: 07/24/16 13:04> Date of Encounter: 07/24/16 Time of Encounter: 10:15 Patient seen/eval. Longstanding debility, diabetes, diabetic neuropathy. Was seen at [facility] for right heel ulcer, had wound vacc, unsure of antibiotics. She has no feeling from her knees down. She would rise from her motorized wheelchair and then fall, catching herself on Right arm, sustaining right distal humerus fracture. She has left foot plantar laceration toes 3-5, she does not know how it happened. is at bedside and affirms general events , believes that her left foot laceration is from a washing basin. H&P from earlier this morning reviewed. Imaging reviewed. Exam Gen Morbidly obese, cooperative HEENT ATNC EOMI nonicteric, mmm no mucositis Neck trachea midline, soft, no cervical LAD CV S1 S2, no mrg appreciated Resp dim 2* habitus, no crackles or wheeze, no conversational dyspnea Abd obese, soft nt nd Ext Right arm with distal humerus disfiguration, erythema, swelling, warm to touch. Distal pulse and sensation intact. Right foot lateral heel plantar aspect with stage III ulceration, some granulation tissue, no active oozing Left foot toes 3-5 with deep laceration on plantar aspect, bloody, with left foot 1st toe nail impaction. Patient has no cutaneous sensation distally from her knees. Started broad spectrum antibiotics due to right foot heel ulcer and left foot laceration. Consulted podiatry service for left foot laceration and right heel ulcer. Appreciate orthopedic service input regarding right distal humerus fracture. <Karan Levine - Last Filed: 07/24/16 18:29> Date of Encounter: 07/24/16 I examined this patient and my medical decision-making was reviewed with the MAGAZINE EDITOR/PA/Advanced Practice Nurse/Resident Physician. I agree with the documented findings, disposition and treatment plan as described except to the extent set forth below. Continue with broad spectrum antibiotics, might deescalate according to clinical picture.
[2016-07-24] MEDS: *HR* Heparin 5,000 UNIT/ML VIAL SQ SCH ×2 (14:14→21:45)
[2016-07-24] MEDS ORDERED: Ketorolac 15 MG/ML VIAL IVP ONE (15:56)
--- NOTE | 2016-07-24 19:17 | Anesthesia Evaluation PreOp ---
Date of Encounter: 07/24/16 Time of Encounter: 19:00 - Past History Planned Operation: ORIF Rt Humerus Fracture Cardiac History: CHF (Hx CHF...recent Echo LVEF 65%), HTN, Other (Chronic Anemia ) Pulmonary History: COPD ASSOCIATE FINANCIAL ADVISOR History: Denies Any Significant HX Other Medical History: Diabetes Type II, Other (MO) Anesthesia History: No Prior Anesthetic Complications : No Alcohol Use: none Drug use: none Medications and Allergies Aspirin [Adult Low Dose Aspirin EC] 81 mg PO DAILY 08/22/15 [History] Enalapril Maleate [Vasotec] 10 mg PO BID 08/22/15 [History] Furosemide [Lasix] 20 mg PO DAILY 08/22/15 [History] Insulin Glargine,Hum.rec.anlog [Lantus Solostar] 110 unit SQ QAM 08/22/15 [ History] OxyCODONE/APAP 10/325 [Percocet 10/325 MG] 1 tab PO QID PRN 08/22/15 [History] Pioglitazone HCl [Actos] 30 mg PO DAILY 08/22/15 [History] Pregabalin [Lyrica] 150 mg PO TID 08/22/15 [History] Simvastatin [Zocor] 20 mg PO DAILY 08/22/15 [History] Ferrous Sulfate 325 mg PO BID #60 tablet 08/28/15 [Rx] Omeprazole [PriLOSEC] 40 mg PO DAILY@0630 #30 capsule 08/28/15 [Rx] Folic Acid 1 mg PO DAILY #90 tablet 09/24/15 [Rx] Cyanocobalamin (B-12) [Vitamin B12] 1 ml IM QMONTH 07/24/16 [History] Levocetirizine Dihydrochloride [Xyzal] 5 mg PO DAILY 07/24/16 [History] Nystatin POWDER [Nystop] 1 appl TP BID 07/24/16 [History] Allergies No Known Allergies Allergy (Verified 01/10/16 12:42) - Meds/Allergy Pre-op Review Medications Reviewed: Yes Allergies Reviewed: Yes Beta Blockers on Current Med List: Yes Anesthesia Results - Labs 07/24/16 04:55 07/24/16 04:55 - Imaging EKG: report reviewed (SR First Degree AV Block) Additional studies: Echo from -2015 LVEF 65% Anesthesia Exam O2 Sat Height 1.57 m Height 1.6 m Weight 115.212 kg Weight 113.398 kg O2 Sat by Pulse Oximetry 96 O2 Sat by Pulse Oximetry 97 O2 Sat by Pulse Oximetry 95 O2 Sat by Pulse Oximetry 94 O2 Sat by Pulse Oximetry 100 O2 Sat by Pulse Oximetry 100 Vital Signs Temp Pulse Resp BP Pulse Ox 98.4 F 82 18 131/57 100 07/23/16 21:48 07/23/16 21:48 07/23/16 21:48 07/23/16 21:48 07/23/16 21:48 Height: 5'2 Weight: 254 lbs NPO (# of Hours): MN - HEENT Pupil (Motor): Pupils equal, EOMI Mallampati: III Teeth: Edentulous Oral Opening: Less than or equal to 3 - ASSOCIATE FINANCIAL ADVISOR LOC: Oriented ASSOCIATE FINANCIAL ADVISOR Motor: Normal RUE, Normal LUE, Normal RLE, Normal LLE, Normal Face ASSOCIATE FINANCIAL ADVISOR Sensory: Normal: RUE, LUE, RLE, LLE, Face - Cardiac Rhythm: Regular Murmur: None JVD: No Carotid Bruit: No - Pulmonary Breath Sounds: bilateral Clear Respiratory Effort: Symmetrical Anesthesia Assess/Plan ASA Score: 3 (MO DM Anemia COPD) Modified Zheng Scale for Level of Consciousness: Cooperative, oriented, and tranquil Anesthetic Plan: General Monitoring Plan: Standard Monitors Recovery Plan: PACU (Discussed GA, agrees to proceed)
--- NOTE | 2016-07-24 20:23 | Electrocardiograph Report ---
[facility] Test Date: 2016-07-23 Pat Name: [facility] Department: 103 Room: [facility] Gender: F Critical Care Cns: PRISCILLA : 1940 Requested By: Jesus Hayes Order Number: [id number] Reading MD: Jared Sanchez MD Measurements Intervals [place] Rate: 79 P: MT: 0 QRS: -25 QRSD: 98 T: 59 QT: 372 QTc: 407 Interpretive Statements ATRIAL FIBRILLATION Electronically Signed On 07-24-16 20:22:25 EST by Jared Sanchez MD
[2016-07-24] MEDS: Piperacillin/Tazobactam 3.375 GM in D5% in Water (Mini-Bag+) 100 ML IVPB SCH (20:45)
[2016-07-25] MEDS: Acetaminophen 325 MG TABLET PO PRN (01:47)
[2016-07-25] MEDS: Insulin LISPRO 300 UNITS/3 ML VIAL SQ SCH ×4 (01:47→19:05)
[2016-07-25] MEDS: Vancomycin 1,500 MG in D5% in Water 250 ML IVPB SCH (01:47)
[2016-07-25] MEDS: 0.9 % Sodium Chloride 1,000 ML IVC SCH (01:49)
[2016-07-25] MEDS: Piperacillin/Tazobactam 3.375 GM in D5% in Water (Mini-Bag+) 100 ML IVPB SCH ×2 (03:52→23:14)
[2016-07-25] MEDS: *HR* HYDROmorphone (PF) 1 MG/ML SYRINGE IVP PRN ×3 (03:53→23:21)
[2016-07-25 04:24] LABS: Basophils % 0.2 %; Eosinophils # 0.3 K/mcL (0.0-0.6); Eosinophils % 5.9 %; Immature Granulocytes % 0.2 % (0-4); Lymphocytes # 0.4 K/mcL (0.6-4.6); Lymphocytes % 7.6 %; Mean Corpuscular HGB Conc 31.7 g/dL (31.6-35.5); Mean Corpuscular Hemoglobin 28.8 pg (28.0-33.3); Mean Corpuscular Volume 90.9 fL (83.0-100.0); Mean Platelet Volume 11.2 fL (9.4-12.4); Monocytes # 0.4 K/mcL (0.0-1.3); Monocytes % 6.6 %; Neutrophils # 4.6 K/mcL (1.6-8.9); Platelet Count 137 K/mcL (140-400); Red Blood Count 2.64 M/mcL (3.82-4.97); Red Cell Distribution Width 15.7 % (11.5-14.5); Segmented Neutrophils % 79.5 %
[2016-07-25 04:32] LABS: Hemoglobin 7.6 g/dL (11.5-15.4)
[2016-07-25 04:36] LABS: Calcium 8.3 mg/dL (8.6-10.8); Potassium 5.6 mEq/L (3.5-4.5)
[2016-07-25 04:50] LABS: Hemoglobin A1C 6.9 %
[2016-07-25] MEDS ORDERED: Sodium Bicarbonate 75 MEQ in 0.45 % Sodium Chloride 1,000 ML IVC SCH ×2 (05:45→17:56)
[2016-07-25] MEDS: Nystatin POWDER 30 GM BOTTLE TP SCH ×3 (06:17→23:22)
[2016-07-25] MEDS ORDERED: Albuterol Neb 7.5 MG, Sodium Chloride for inhalation 12 ML IH ONE (06:21)
--- NOTE | 2016-07-25 06:38 | Event Note ---
Date of Encounter: 07/25/16 Time of Encounter: 05:05 Called to see patient, RN concerned about right arm swelling. She sustained a distal humeral fracture. Obvious swelling in the lower arm, elbow and forearm with traumatic purpura anteriorly. No fluctuancy Very good 2+ radial and ulnar pulses. Very good capillary refill. <2s Hyperkalemia 5.6 hEMOGLOBIn DROPPED 3.1 G/DL FROM 10.7 TO 7.6 gldl IMP Distal right humeral fracture Present, go distal circulation, but remains at risk of compartment syndrome. Hyperkalemia Acute renal injury Suspect crush injury/rhabdomyolysis Hemorrhagic anemia PLAN Elevate arm, apply ice pads DC NS, start 0.45% NS with 75 mEq of KCl to run at 125 mls/hr Bolus bicarb 50 mEQ x 1 Albuterol neb over 1 hour Obtain CPK DC Vancomycin, further increases risk of renal injury, OK to continue Zosyn Hold heparin subcut., apply TEDs Transfuse [address] in telemetry I called Dr Jc and informed him of the patients status, he will be in to perform ORIF today. Cancel order for doppler, not indicated as she has 2+ pulses in radial and ulnar arteries.
--- NOTE | 2016-07-25 08:23 | Internal Med Progress Note ---
<Deshawn Gtz - Last Filed: 07/25/16 17:28> Date of Encounter: 07/25/16 Time of Encounter: 08:20 - Assessment and plan (1) Humerus distal fracture Current Visit: Yes Status: Acute Assessment and plan: Right distal humerus fracture s/p mechanical fall. Evidenced on Right humerus xray. Cont pain control measures. Orthopedic service following, anticipate going to OR later today. Qualifiers: Encounter type: initial encounter Fracture type: closed Fracture morphology: other fracture Fracture alignment: displaced Laterality: right Qualified Code(s): S42.491A - Other displaced fracture of lower end of right humerus, initial encounter for closed fracture (2) Rhabdomyolysis Current Visit: Yes Status: Acute Assessment and plan: Evidenced by elevated CK, K+ in setting of right humerus fracture. Hyperkalemia may be reflective of myocyte destruction. Agree with continuing IVF with bicarbonate. Monitor renal function. Anticipate improvement following fracture repair of Right humerus. Qualifiers: Rhabdomyolysis type: traumatic Encounter type: initial encounter Qualified Code(s): T79.6XXA - Traumatic ischemia of muscle, initial encounter (3) Anemia Current Visit: Yes Status: Acute Assessment and plan: Normocytic anemia, with likely multifactorial etiologies. Suspect acute blood loss from humerus fracture, chronic disease per diabetes and diabetic foot ulcer. Patient affirmed no bloody stool/urine. Hgb 9.8 to 7.6 Transfuse 1 U PRBC at this time. Obtain Iron profile and ferritin. Qualifiers: Anemia type: iron deficiency Iron deficiency anemia type: unspecified iron deficiency Qualified Code(s): D50.9 - Iron deficiency anemia, unspecified (4) Diabetes mellitus Current Visit: Yes Status: Chronic Assessment and plan: Insulin-dependant diabetic. 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 (6) Diabetic ulcer of heel Current Visit: Yes Status: Chronic Assessment and plan: Per wound care and podiatry recs. Keep elevated and off pressure. (7) Laceration of toe of left foot Current Visit: Yes Status: Acute Assessment and plan: Appreciate podiatry input. Discussed with sr. director Dr. Miguel, consider power-washing and suturing while in OR today. Qualifiers: Encounter type: subsequent encounter Qualified Code(s): S91.119D - Laceration without foreign body of unspecified toe without damage to nail, subsequent encounter (8) DVT prophylaxis Current Visit: No Status: Resolved Assessment and plan: EPCD in light of anemia - Subjective Interval history: Patient seen/eval. She is resting in bed. Interval events noted, Hgb drop to 7.6 , had 1 U PRBC ordered, has IVF with bicarb. She affirms right arm discomfort, voices no other complaints. Anticipate going to OR later today. - Constitutional Vitals: Temp Pulse Resp BP Pulse Ox 99.1 F 84 16 126/53 94 L 07/25/16 06:59 07/25/16 06:59 07/25/16 06:59 07/25/16 06:59 07/25/16 06:59 General appearance: Present: cooperative, morbidly obese, pleasant, answers questions appropriately - Head Head exam: Present: atraumatic, normocephalic - Eye Eye exam: Present: EOMI, sclera anicteric - ENT ENT exam: Present: mucous membranes moist - Neck Neck exam general surgery: Present: normal inspection, trachea midline - Respiratory Respiratory exam: Present: rhonchi (scant diffuse ronchi, diminished 2* habitus , no wheeze) - Cardiovascular Cardiovascular exam: Present: +S1, +S2. Absent: JVD - GI/Abdominal GI/Abdominal exam: Present: soft, no peritoneal signs. Absent: distended, tenderness - Extremities Exam Extremities exam: Present: warm. Absent: mottling Additional comments: Right arm with distal humerus disfiguration, erythema, swelling, warm to touch. Distal pulse and sensation intact. Right foot lateral heel plantar aspect ulcer, with pressure dressing, elevated proximally. Left foot bandaged, cdi. Internal Medicine: Result - Labs CBC & Chem 7: 07/25/16 04:03 07/25/16 04:03 Labs: Short CBC 07/25/16 Range/Units 04:03 WBC 5.8 (4.3-11.1) K/mcL Hgb 7.6 L D (11.5-15.4) g/dL Hct 24.0 L (35.3-44.9) % Plt Count 137 L (140-400) K/mcL Neutrophils # 4.6 (1.6-8.9) K/mcL BMP 07/25/16 04:03 Sodium 134 L Potassium 5.6 H Chloride 106 Carbon Dioxide 23 BUN 35 H Creatinine 1.46 H Glucose 164 H Calcium 8.3 L - VTE Documentation of Mechanical Device: Intermittent pneumatic compression device Consult Discharge Plan - Plan Referrals: Amy Ryan MD [Primary Care Provider] - <Karan Levine - Last Filed: 07/25/16 18:23> - Constitutional Vitals: Temp Pulse Resp BP Pulse Ox 98.1 F 69 15 158/83 100 07/25/16 17:59 07/25/16 17:59 07/25/16 17:59 07/25/16 17:59 07/25/16 17:59 Internal Medicine: Result - Labs CBC & Chem 7: 07/25/16 17:26 07/25/16 04:03 Labs: Short CBC 07/25/16 07/25/16 Range/Units 04:03 17:26 WBC 5.8 (4.3-11.1) K/mcL Hgb 7.6 L D 9.2 L D (11.5-15.4) g/dL Hct 24.0 L 29.5 L (35.3-44.9) % Plt Count 137 L (140-400) K/mcL Neutrophils # 4.6 (1.6-8.9) K/mcL BMP 07/25/16 04:03 Sodium 134 L Potassium 5.6 H Chloride 106 Carbon Dioxide 23 BUN 35 H Creatinine 1.46 H Glucose 164 H Calcium 8.3 L - Impressions Impressions Fluoroscopy 07/25/16 14:00 IMPRESSION: Intraprocedural fluoroscopic spot images as above. See separate procedure report for more information. D/ / Isaias Masters MD / Isaias Masters MD Interpreting Provider: Isaias Masters MD Humerus X-Ray 07/25/16 14:00 IMPRESSION: Intraprocedural fluoroscopic spot images as above. See separate procedure report for more information. D/ / Isaias Masters MD / Isaias Masters MD Interpreting Provider: Isaias Masters MD - Attending Attestation I examined this patient and my medical decision-making was reviewed with the AUTO SERVICER/PA/Advanced Practice Nurse/Resident Physician. I agree with the documented findings, disposition and treatment plan as described except to the extent set forth below. Going to the OR today as per ortho, continue with pain control meds.
[2016-07-25] MEDS ORDERED: Nystatin POWDER 30 GM BOTTLE TP SCH (09:00)
[2016-07-25] MEDS: Folic Acid 1 MG TABLET PO SCH (09:13)
[2016-07-25] MEDS: Pregabalin 75 MG CAPSULE PO SCH ×2 (09:13→23:13)
[2016-07-25] MEDS ORDERED: 0.9 % Sodium Chloride 250 ML ONE (09:16)
[2016-07-25] MEDS: Pantoprazole 40 MG VIAL IVP SCH (09:20)
[2016-07-25 10:01] LABS: % Iron Saturation 17 % (15-50); Transferrin 188 mg/dL (180-382)
[2016-07-25 10:03] LABS: Iron 44 mcg/dL (50-170)
[2016-07-25 10:21] LABS: Ferritin 72 ng/ml (5-204)
--- NOTE | 2016-07-25 12:54 | Podiatry Consult Note ---
Date of Encounter: 07/25/16 Time of Encounter: 12:51 Assessment and Plan (1) Laceration of toe of left foot Current visit: Yes Status: Acute At this time the patient was instructed that we need to surgically close the lacerations on the plantar aspect of her foot after washing it thoroughly in the operating room. The patient was agreeable.Patient was informed of the risks and complications of surgery. These may include but are not limited to the following; nerve damage, numbness, tingling, RSD/CRPS, loss of motor function, loss of toe, loss of limb, loss of life, ischemia, wound healing issues, infection, scarring, keloid formation, continued pain, arthritis, non- union, mal-union, prominent hardware, displaced hardware, reaction to hardware, the need to remove hardware, bruising, continued limp, the need for future surgery, over correction, under correction, chronic swelling, the need for physical therapy, stiffness of joints, ulceration, slow healing, wound dehiscence, reaction to implant, reaction to sutures. The patient was informed of the possible conservative treatments available which may include but are not limited to the following: Orthotics, bracing, non -weight bearing, physical therapy, padding, taping, steroid injections, NSAIDS, casting. The patient was given the option to seek a second opinion. It was explained that surgery is an art and not an exact science therefore results cannot be guaranteed. All the patients questions and concerns were addressed. Patient agrees to have the surgery despite the possible risks and complications. Absolutely no guarantees were given or implied. Qualifiers: Encounter type: subsequent encounter Qualified Code(s): S91.119D - Laceration without foreign body of unspecified toe without damage to nail, subsequent encounter History of Present Illness Chief complaint: laceration toes of left foot digits 3,4,5 HPI: Ms. Aguayo is a 75 year old female Past Med Surg Social Fam HX - Past Medical History Medical history: arthritis, CHF, COPD, diabetes, hypertension Psychiatric history: depression - Past Surgical History Surgical History: non-contributory - Social History Smoking Status: Never smoker Smokeless Tobacco Status: No Alcohol use: none Drug use: none - Family History Father History Unknown: Yes Hx Family Cancer: Yes (leukemia) Mother History Unknown: Yes Hx Family Cardiac Disorders: Yes (heart disease) Medications and Allergies Aspirin [Adult Low Dose Aspirin EC] 81 mg PO DAILY 02/03/16 [History] Enalapril Maleate [Vasotec] 10 mg PO BID 08/22/15 [History] Furosemide [Lasix] 20 mg PO DAILY 08/22/15 [History] Insulin Glargine,Hum.rec.anlog [Lantus Solostar] 110 unit SQ QAM 08/22/15 [ History] OxyCODONE/APAP 10/325 [Percocet 10/325 MG] 1 tab PO QID PRN 08/22/15 [History] Pioglitazone HCl [Actos] 30 mg PO DAILY 08/22/15 [History] Pregabalin [Lyrica] 150 mg PO TID 08/22/15 [History] Simvastatin [Zocor] 20 mg PO DAILY 08/22/15 [History] Ferrous Sulfate 325 mg PO BID #60 tablet 08/28/15 [Rx] Omeprazole [PriLOSEC] 40 mg PO DAILY@0630 #30 capsule 08/28/15 [Rx] Folic Acid 1 mg PO DAILY #90 tablet 09/24/15 [Rx] Cyanocobalamin (B-12) [Vitamin B12] 1 ml IM QMONTH 07/24/16 [History] Levocetirizine Dihydrochloride [Xyzal] 5 mg PO DAILY 07/24/16 [History] Nystatin POWDER [Nystop] 1 appl TP BID 07/24/16 [History] Allergies No Known Allergies Allergy (Verified 01/10/16 12:42) All Systems Reviewed: A 10-system review of systems was performed and is negative for pertinent findings except as documented above in the HPI. Physical Exam - Constitutional Vitals: Temp Pulse Resp BP Pulse Ox 98.1 F 87 17 123/46 94 L 07/25/16 12:14 07/25/16 12:14 07/25/16 12:14 07/25/16 12:14 07/25/16 12:14 Exam: Pedal pulses palpable. Diminished sensation consistent with peripheral neuropathy. Laceration noted to the plantar aspect of the digits 5, 3, 4 of the left foot. No other open lesions, abrasions, or ulcerations. Patient is able to dorsiflex and plantarflex feet and digits. Results - Labs Result Diagrams: 07/25/16 04:03 07/25/16 04:03 Labs: Abnormal lab results RBC 2.64 M/mcL (3.82-4.97) L 07/25/16 04:03 Hgb 7.6 g/dL (11.5-15.4) L D 07/25/16 04:03 Hct 24.0 % (35.3-44.9) L 07/25/16 04:03 RDW 15.7 % (11.5-14.5) H 07/25/16 04:03 Plt Count 137 K/mcL (140-400) L 07/25/16 04:03 Lymphocytes # 0.4 K/mcL (0.6-4.6) L 07/25/16 04:03 Sodium 134 mEq/L (136-145) L 07/25/16 04:03 Potassium 5.6 mEq/L (3.5-4.5) H 07/25/16 04:03 BUN 35 mg/dL (7-20) H 07/25/16 04:03 Creatinine 1.46 mg/dL (0.57-1.11) H 07/25/16 04:03 Est GFR ( Amer) 42 (> 60) L 07/25/16 04:03 Est GFR (Non-Af Amer) 35 (> 60) L 07/25/16 04:03 Glucose 164 mg/dL (70-99) H 07/25/16 04:03 POC Glucose 156 (58-89) H 07/25/16 05:39 Hemoglobin A1c 6.9 % (-5.6) H 07/25/16 04:03 Calcium 8.3 mg/dL (8.6-10.8) L 07/25/16 04:03 Iron 44 mcg/dL (50-170) L 07/25/16 09:00 Creatine Kinase 912 Units/L (29-168) H 07/25/16 04:03 Urine Glucose (UA) >=1000 mg/dL (Normal) H 07/24/16 01:43 Ur Squamous Epith Cells Many per lpf (None-Few) H 07/24/16 01:43 H & H 07/25/16 Range/Units 04:03 Hgb 7.6 L D (11.5-15.4) g/dL Hct 24.0 L (35.3-44.9) % All other labs normal. Consult Discharge Plan - Plan Referrals: Amy Ryan MD [Primary Care Provider] -
[2016-07-25] MEDS ORDERED: *HR* FentaNYL (PF) 100 MCG/2 ML VIAL ONE (12:56)
[2016-07-25] MEDS ORDERED: *HR* Propofol 200 MG/20 ML VIAL IVP ONE (12:56)
[2016-07-25] MEDS ORDERED: *HR* Midazolam HCl 2 MG/2 ML VIAL ONE (12:56)
[2016-07-25] MEDS ORDERED: Ondansetron 4 MG/2 ML VIAL ONE (12:56)
[2016-07-25] MEDS ORDERED: *HR* Rocuronium Bromide 50 MG/5 ML VIAL ONE (12:56)
[2016-07-25] MEDS ORDERED: ceFAZolin 3,000 MG in D5% in Water 100 ML IVPB ONE (14:09)
[2016-07-25] MEDS ORDERED: EPHEDrine 50 MG/ML VIAL ONE (15:04)
[2016-07-25] MEDS ORDERED: *HR* HYDROmorphone (PF) 1 MG/ML SYRINGE ONE (16:47)
--- NOTE | 2016-07-25 16:51 | Operative Note ---
Date of procedure: 07/25/16 Pre-op diagnosis: Right distal humerus fracture, extra-articular Post-op diagnosis: same Procedure: Right distal humerus open reduction internal fixation Implants: [employer]ynthe[employer] 6-hole extra-articular distal humerus plate Anesthesia: CRISTIANO Surgeon: Ignacio Stafford Estimated blood loss (cc): 150 Tourniquet Time (Minutes): 41 Specimen: 0 Condition: stable Disposition: PACU Procedure in Detail: Indications for surgery: Patient is a 75-year-old [id number] woman who slipped and fell 2 days ago sustaining a fracture of the distal humerus with no articular extension. The fracture was a displaced spiral fracture. Patient also sustained lacerations under the left foot at the base of the third, fourth and fifth toes. These wounds will be irrigated and debrided, and closed by Dr. vasiliy maharaj. Procedure: The patient received IV antibiotics in the holding area,. He was brought into the operating room, placed on the OR table where and underwent general anesthesia. The patient was then positioned in the left lateral decubitus position using a beanbag to stabilize. All bony prominences were well-padded, and an axillary roll was also used. The right upper extremity was then prepped and draped in usual sterile fashion. A sterile tourniquet was applied to the upper arm, as close to the axilla as possible. A large bump was placed under the right arm. A timeout was then performed. The right upper extremity was then elevated, exsanguinated with Cliff wrap, and the tourniquet was raised to a pressure of 250 mmHg. A 20 cm posterior longitudinal incision was made curving incision slightly to the lateral side of the tip of the olecranon. Subcutaneous tissue was sharply incised with Bovie cutting down to the level of the triceps fascia. A bruce elevator was then used to expose the triceps from the medial and lateral intermuscular septae. The ulnar nerve was then dissected out, and gently mobilized making sure to preserve the first branch to FCU. A [place] drain was placed around the ulnar nerve to ean this location. The lateral septum was also elevated off the lateral column. The triceps muscle was elevated. I identified the radial nerve passing through the lateral intermuscular septum. The nerve was dissected out and tracing it proximally. The triceps muscle mass was elevated exposing the fracture. While elevating the triceps and dissecting of the fracture, and was seen in the long spike on the medial side , this was distal to the spiral groove. The nerve was dissected more proximally heading up to a spiral groove and protecting it. Axial traction was applied distracting the fracture. The fracture was cleaned up with curettes, removing fracture hematoma and soft callus. It was then irrigated out with normal saline. Since this was an extra- articular fracture, we used the posterior lateral extra-articular plate from [employer]. The fracture was reduced and held in place with large bone clamps. A 6 hole plate was chosen and applied to the posterior surface of the lateral column.. The plate was secured distally using a 3.5 mm non-locking screws, this was followed by an eccentrically placed 3.5 mm screw proximally in compression mode. Placement of the proximal screws was placed for carefully, since the proximal end of the plate went to the spiral groove. When tightening down the proximal bicortical screw, it was difficult to see the spiral groove completely. The tourniquet was let down and removed, incision was extended another 5 cm more proximally. The triceps was mobilized more. The radial nerve was dissected out, was seen a small branch had roll under the proximal lip of the plate. The screw was backed off and was ruled out. Screw was retightened while axially compressing the fracture site. The radial nerve was dissected more proximally only shows completely free and completely loose mobilized away from the plate completely. Since it was a long oblique spiraling fracture., a lag screw was placed from medial to lateral, perpendicular to the fracture line. This compressed the fracture and give relatively good stability. The remaining screws were then filled in standard technique using a combination of bicortical and locking screws. Distally, only used unicortical locking screws. This gave a strong construct. The wound was irrigated with normal saline. The ulnar nerve was checked to make sure it was stable, and left simply decompressed. Once again the radial nerve was examined and no visible damage was seen appeared be intact and free. The deep fascia was closed with 0 Vicryl sutures, subcutaneously with 2-0 Vicryl and finally the skin with joseph. Sterile dressings were applied. The patient was placed into a posterior splint. Once Dr. amanda was done with the foot laceration repairs, the patient was then positioned supine and extubated and taken to recovery room in stable condition. The patient will be seen at postoperative week #1, for dressing changes, check an x-ray, and referred to therapy for active, active assist and gentle passive range of motion exercises. Patient will remain nonweightbearing to the right upper extremity.
--- NOTE | 2016-07-25 17:41 | Anesthesia Evaluation Post Op ---
Date of Encounter: 07/25/16 Time of Encounter: 17:39 - Vital Signs Vital Signs: Vital Signs/O2 Sat, Most Current Temp Pulse Resp BP Pulse Ox 98 F 66 12 149/66 100 07/25/16 17:27 07/25/16 17:27 07/25/16 17:27 07/25/16 17:27 07/25/16 17:27 - Lungs Lungs: Clear Ascult./Percussion - Airway Airway: Non-obstructed - Cardiovascular Regular Rate - Mental Status Mental Status: Asleep with brisk response to light stimulation - Pain Pain Scale: 3 Pain Scale used: Numeric (1 - 10) - Nausea Vomiting Nausea Vomiting: Not Present - Hydration Hydration: Ice chips, Whittaker catheter - Discharge PostOp Status: Transfer Patient to floor
[2016-07-25] MEDS ORDERED: *HR* Dextrose 50 % in Water (Syg) 50 ML SYRINGE IVP PRN (17:56)
[2016-07-25] MEDS ORDERED: Ondansetron 4 MG/2 ML VIAL IVP PRN (17:56)
[2016-07-25] MEDS ORDERED: Dextrose Gel 15 GM PO PRN ×2 (17:56)
[2016-07-25] MEDS ORDERED: Naloxone 0.4 MG/ML INJ IVP PRN (17:56)
[2016-07-25] MEDS ORDERED: Acetaminophen 325 MG TABLET PO PRN (17:56)
[2016-07-25] MEDS ORDERED: D5% in Water 1,000 ML IV PRN (17:56)
[2016-07-25 17:58] LABS: Hematocrit 29.5 % (35.3-44.9)
[2016-07-25 18:01] LABS: Hemoglobin 9.2 g/dL (11.5-15.4)
[2016-07-26] MEDS: Insulin LISPRO 300 UNITS/3 ML VIAL SQ SCH ×5 (01:01→22:09)
[2016-07-26] MEDS: *HR* HYDROmorphone (PF) 1 MG/ML SYRINGE IVP PRN ×5 (02:12→20:24)
[2016-07-26 04:47] LABS: Hematocrit 24.1 % (35.3-44.9); Mean Corpuscular HGB Conc 33.2 g/dL (31.6-35.5); Mean Corpuscular Hemoglobin 29.5 pg (28.0-33.3); Mean Corpuscular Volume 88.9 fL (83.0-100.0); Mean Platelet Volume 11.6 fL (9.4-12.4); Platelet Count 135 K/mcL (140-400); Red Blood Count 2.71 M/mcL (3.82-4.97); Red Cell Distribution Width 15.9 % (11.5-14.5)
[2016-07-26 05:14] LABS: Calcium 8.2 mg/dL (8.6-10.8); Potassium 5.7 mEq/L (3.5-4.5)
[2016-07-26] MEDS: Piperacillin/Tazobactam 3.375 GM in D5% in Water (Mini-Bag+) 100 ML IVPB SCH ×3 (06:03→20:24)
--- NOTE | 2016-07-26 06:45 | Orthopedics Progress Note ---
Date of Encounter: 07/26/16 Time of Encounter: 06:45 Subjective Interval history: Patient was seen this morning doing well without complaints. Afebrile vital signs stable. Operative extremity: Neurovascularly intact Posterior splint intact Assessment and plan: Continue with postoperative care Objective Vital signs: Vital Signs Temp Pulse Resp BP Pulse Ox 07/26/16 04:32 98.7 F 89 17 134/94 93 L 07/26/16 00:49 99.3 F 86 17 143/62 95 07/25/16 21:00 98.5 F 82 19 178/77 97 07/25/16 20:00 98.0 F 75 15 168/72 100 07/25/16 18:57 98.1 F 76 16 151/81 98 07/25/16 17:59 98.1 F 69 15 158/83 100 07/25/16 17:27 98 F 66 12 149/66 100 07/25/16 17:17 67 12 139/68 100 07/25/16 17:07 97.6 F 72 12 129/76 100 07/25/16 16:57 69 12 139/67 100 07/25/16 16:47 75 14 128/58 97 07/25/16 16:37 97.6 F 77 12 134/59 100 07/25/16 12:14 98.1 F 87 17 123/46 94 L 07/25/16 09:45 98.1 F 83 16 134/56 98 07/25/16 09:30 98.3 F 81 18 139/59 95 07/25/16 08:48 18 95 07/25/16 06:59 99.1 F 84 16 126/53 94 L Intake and Output 07/25/16 07/25/16 07/26/16 15:59 23:59 07:59 Intake Total 550 / 550 100 / 100 Output Total 750 / 750 600 / 600 Balance 550 / 550 -750 / -750 -500 / -500 Intake: IV Fluids 200 / 200 100 / 100 Ancef 3,000 MG In 100 / 100 Dextrose 5% 100 ML @ 200 mls/hr IVPB PREOP ONE Rx# :[id number] Zosyn 3.375 GM In 100 / 100 100 / 100 Dextrose 5% (Minibag+) 100 ML 100 ML @ 25 mls/hr IVPB Q8H [facility] Rx#: [id number] Blood Product 350 / 350 Rbcs Leuko Poor As-1 350 / 350 Unit [id number] Output: Urine 500 / 500 Estimated Blood Loss 250 / 250 Catheter 600 / 600 Other: Blood Glucose* 179 209 199 - Labs CBC & BMP: 07/26/16 04:30 07/26/16 04:30 Labs: Abnormal lab results RBC 2.71 M/mcL (3.82-4.97) L 07/26/16 04:30 Hgb 8.0 g/dL (11.5-15.4) L 07/26/16 04:30 Hct 24.1 % (35.3-44.9) L 07/26/16 04:30 RDW 15.9 % (11.5-14.5) H 07/26/16 04:30 Plt Count 135 K/mcL (140-400) L 07/26/16 04:30 Lymphocytes # 0.4 K/mcL (0.6-4.6) L 07/25/16 04:03 Potassium 5.7 mEq/L (3.5-4.5) H 07/26/16 04:30 BUN 25 mg/dL (7-20) H D 07/26/16 04:30 Creatinine 1.19 mg/dL (0.57-1.11) H 07/26/16 04:30 Est GFR ( Amer) 53 (> 60) L 07/26/16 04:30 Est GFR (Non-Af Amer) 44 (> 60) L 07/26/16 04:30 Glucose 204 mg/dL (70-99) H 07/26/16 04:30 POC Glucose 178 (58-89) H 07/26/16 00:56 Hemoglobin A1c 6.9 % (-5.6) H 07/25/16 04:03 Calcium 8.2 mg/dL (8.6-10.8) L 07/26/16 04:30 Iron 44 mcg/dL (50-170) L 07/25/16 09:00 Creatine Kinase 912 Units/L (29-168) H 07/25/16 04:03 Urine Glucose (UA) >=1000 mg/dL (Normal) H 07/24/16 01:43 Ur Squamous Epith Cells Many per lpf (None-Few) H 07/24/16 01:43 - VTE Documentation of Mechanical Device: Intermittent pneumatic compression device Consult Discharge Plan - Plan Referrals: Amy Ryan MD [Primary Care Provider] -
[2016-07-26] MEDS ORDERED: Calcium Gluconate 2,000 MG in D5% in Water 100 ML IVPB ONE (08:15)
[2016-07-26] MEDS ORDERED: Furosemide 40 MG/4 ML VIAL IVP ONE (08:16)
[2016-07-26] MEDS: Pantoprazole 40 MG VIAL IVP SCH (09:04)
[2016-07-26] MEDS: Pregabalin 75 MG CAPSULE PO SCH ×3 (09:05→20:24)
[2016-07-26] MEDS: Folic Acid 1 MG TABLET PO SCH (09:05)
[2016-07-26] MEDS: 0.9 % Sodium Chloride 1,000 ML IVC SCH ×2 (09:06→20:23)
[2016-07-26] MEDS: Nystatin POWDER 30 GM BOTTLE TP SCH ×2 (09:58→20:25)
--- NOTE | 2016-07-26 12:47 | Internal Med Progress Note ---
<Deshawn Gtz - Last Filed: 07/26/16 14:08> Date of Encounter: 07/26/16 Time of Encounter: 09:40 - Assessment and plan (1) Humerus distal fracture Current Visit: Yes Status: Acute Assessment and plan: Right distal humerus fracture s/p mechanical fall. Evidenced on Right humerus xray. On 07/25/16 s/p Right distal humerus open reduction internal fixation by Dr. Stafford. Cont pain control measures. Orthopedic service following, appreciate recs. PT/OT/SW Qualifiers: Encounter type: initial encounter Fracture type: closed Fracture morphology: other fracture Fracture alignment: displaced Laterality: right Qualified Code(s): S42.491A - Other displaced fracture of lower end of right humerus, initial encounter for closed fracture (2) Rhabdomyolysis Current Visit: Yes Status: Acute Assessment and plan: Evidenced by elevated CK, K+ in setting of right humerus fracture. Hyperkalemia may be reflective of myocyte destruction. Agree with continuing IVF with bicarbonate. Monitor renal function. Anticipate improvement following fracture repair of Right humerus. 07/26/16 CK 758 Qualifiers: Rhabdomyolysis type: traumatic Encounter type: initial encounter Qualified Code(s): T79.6XXA - Traumatic ischemia of muscle, initial encounter (3) Anemia Current Visit: Yes Status: Acute Assessment and plan: Normocytic anemia, with likely multifactorial etiologies. Suspect acute blood loss from humerus fracture, chronic disease per diabetes and diabetic foot ulcer. Patient affirmed no bloody stool/urine. Hgb 9.8 to 7.6 on 07/25/16, transfused 1 UPRBC Obtained Iron profile and ferritin: suggests BRADEN, will supplement. 07/26/16 Repeat H/H in afternoon, transfuse if Hgb<8.0 Qualifiers: Anemia type: iron deficiency Iron deficiency anemia type: unspecified iron deficiency Qualified Code(s): D50.9 - Iron deficiency anemia, unspecified (4) Diabetes mellitus Current Visit: Yes Status: Chronic Assessment and plan: Insulin-dependant diabetic. 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 (6) Diabetic ulcer of heel Current Visit: Yes Status: Chronic Assessment and plan: Per wound care and podiatry recs. Keep elevated and off pressure. (7) Laceration of toe of left foot Current Visit: Yes Status: Acute Assessment and plan: Appreciate podiatry input. S/P power-washing and sutured on 07/25/16. Qualifiers: Encounter type: subsequent encounter Qualified Code(s): S91.119D - Laceration without foreign body of unspecified toe without damage to nail, subsequent encounter (8) DVT prophylaxis Current Visit: No Status: Resolved Assessment and plan: EPCD in light of anemia - Subjective Interval history: Patient seen/eval. She is resting in bed, POD #1 s/p Right distal humerus ORIF, still feels groggy, some residual pain from surgical sites. No other concerns voiced. - Constitutional Vitals: Temp Pulse Resp BP Pulse Ox 100.2 F H 97 20 149/54 95 07/26/16 11:42 07/26/16 11:42 07/26/16 11:42 07/26/16 11:42 07/26/16 11:42 General appearance: Present: cooperative, morbidly obese, answers questions appropriately - Head Head exam: Present: atraumatic, normocephalic - Eye Eye exam: Present: EOMI, sclera anicteric - ENT ENT exam: Present: mucous membranes moist - Neck Neck exam general surgery: Present: supple, trachea midline - Respiratory Respiratory exam: Present: decreased breath sounds (2* habitus), rhonchi (scant) . Absent: wheezes - Cardiovascular Cardiovascular exam: Present: +S1, +S2. Absent: JVD - GI/Abdominal GI/Abdominal exam: Present: soft, no peritoneal signs. Absent: tenderness - Extremities Exam Extremities exam: Present: pedal edema (mild), warm, radial pulses palpable and symetrical Additional comments: R. arm, distal humerus bandaged, in cast. Right foot ulcerated heel, bandaged. Left foot lacerated 3rd-5th toes sutured, cdi, wrapped. Internal Medicine: Result - Labs CBC & Chem 7: 07/26/16 04:30 07/26/16 04:30 Labs: Short CBC 07/25/16 07/26/16 Range/Units 17:26 04:30 WBC 6.1 (4.3-11.1) K/mcL Hgb 9.2 L D 8.0 L (11.5-15.4) g/dL Hct 29.5 L 24.1 L (35.3-44.9) % Plt Count 135 L (140-400) K/mcL BMP 07/26/16 04:30 Sodium 136 Potassium 5.7 H Chloride 105 Carbon Dioxide 24 BUN 25 H D Creatinine 1.19 H Glucose 204 H Calcium 8.2 L - Impressions Impressions Fluoroscopy 07/25/16 14:00 IMPRESSION: Intraprocedural fluoroscopic spot images as above. See separate procedure report for more information. D/ / Isaias Masters MD / Isaias Masters MD Interpreting Provider: Isaias Masters MD Humerus X-Ray 07/25/16 14:00 IMPRESSION: Intraprocedural fluoroscopic spot images as above. See separate procedure report for more information. D/ / Isaias Masters MD / Isaias Masters MD Interpreting Provider: Isaias Masters MD - VTE Documentation of Mechanical Device: Intermittent pneumatic compression device Consult Discharge Plan - Plan Referrals: Amy Ryan MD [Primary Care Provider] - <Karan Levine - Last Filed: 07/26/16 14:24> - Constitutional Vitals: Temp Pulse Resp BP Pulse Ox 100.2 F H 97 20 149/54 95 07/26/16 11:42 07/26/16 11:42 07/26/16 11:42 07/26/16 11:42 07/26/16 11:42 Internal Medicine: Result - Labs CBC & Chem 7: 07/26/16 04:30 07/26/16 04:30 Labs: Short CBC 07/25/16 07/26/16 Range/Units 17:26 04:30 WBC 6.1 (4.3-11.1) K/mcL Hgb 9.2 L D 8.0 L (11.5-15.4) g/dL Hct 29.5 L 24.1 L (35.3-44.9) % Plt Count 135 L (140-400) K/mcL BMP 07/26/16 04:30 Sodium 136 Potassium 5.7 H Chloride 105 Carbon Dioxide 24 BUN 25 H D Creatinine 1.19 H Glucose 204 H Calcium 8.2 L - Impressions Impressions Fluoroscopy 07/25/16 14:00 IMPRESSION: Intraprocedural fluoroscopic spot images as above. See separate procedure report for more information. D/ / Isaias Masters MD / Isaias Masters MD Interpreting Provider: Isaias Masters MD Humerus X-Ray 07/25/16 14:00 IMPRESSION: Intraprocedural fluoroscopic spot images as above. See separate procedure report for more information. D/ / Isaias Masters MD / Isaias Masters MD Interpreting Provider: Isaias Masters MD - Attending Attestation I examined this patient and my medical decision-making was reviewed with the CONCRETE ROD BUSTER/PA/Advanced Practice Nurse/Resident Physician. I agree with the documented findings, disposition and treatment plan as described except to the extent set forth below. Continue with pain control medications, monitor kidney function and potassium. Follow CPK levels in light of rhabdomyolysis.
[2016-07-26 17:43] LABS: Hematocrit 22.2 % (35.3-44.9)
[2016-07-26] MEDS ORDERED: 0.9 % Sodium Chloride 250 ML ONE (23:39)
[2016-07-27] MEDS: *HR* HYDROmorphone (PF) 1 MG/ML SYRINGE IVP PRN ×9 (00:23→22:47)
[2016-07-27] MEDS ORDERED: 0.9 % Sodium Chloride 250 ML ONE (03:53)
[2016-07-27] MEDS: Pantoprazole 40 MG VIAL IVP SCH (07:33)
[2016-07-27] MEDS: Nystatin POWDER 30 GM BOTTLE TP SCH ×2 (07:34→20:47)
[2016-07-27] MEDS: Folic Acid 1 MG TABLET PO SCH (07:34)
[2016-07-27] MEDS: Insulin LISPRO 300 UNITS/3 ML VIAL SQ SCH ×4 (07:34→20:46)
[2016-07-27] MEDS: Pregabalin 75 MG CAPSULE PO SCH ×3 (07:34→20:46)
--- NOTE | 2016-07-27 07:48 | Orthopedics Progress Note ---
Date of Encounter: 07/27/16 Time of Encounter: 07:47 Subjective Interval history: Patient was seen this morning doing well without complaints. Afebrile vital signs stable. Operative extremity: Neurovascularly intact Posterior splint intact Assessment and plan: Continue with postoperative care Objective Vital signs: Vital Signs Temp Pulse Resp BP Pulse Ox 07/27/16 06:52 98.1 F 86 16 141/75 96 07/27/16 06:33 99.0 F 80 18 118/66 94 L 07/27/16 05:04 98.4 F 86 14 135/74 96 07/27/16 04:19 98.9 F 82 14 122/56 94 L 07/27/16 03:51 99.1 F 84 20 142/72 97 07/27/16 03:01 99.1 F 84 20 142/72 97 07/27/16 01:06 99.1 F 85 16 138/71 95 07/27/16 00:19 98.5 F 83 18 126/75 97 07/26/16 23:55 98.5 F 87 14 147/73 96 07/26/16 23:04 98.5 F 87 14 147/73 96 07/26/16 19:59 99.6 F 85 14 129/68 96 07/26/16 15:04 99.4 F 93 20 138/64 94 L 07/26/16 11:42 100.2 F H 97 20 149/54 95 Intake and Output 07/26/16 07/26/16 07/27/16 15:59 23:59 07:59 Intake Total 300 / 300 1400 / 1400 1250 / 1250 Output Total 2250 / 2250 1300 / 1300 550 / 550 Balance -1950 / -1950 100 / 100 700 / 700 Intake: IV Fluids 100 / 100 1100 / 1100 350 / 350 0.9 % Sodium Chloride 250 250 / 250 ML As .ROUTE .STK-MED ONE Rx#:[id number] 0.9 % Sodium Chloride 1, 1000 / 1000 000 ML @ 100 mls/hr IVC . Q10H NITESH Rx#:[id number] Zosyn 3.375 GM In 100 / 100 100 / 100 100 / 100 Dextrose 5% (Minibag+) 100 ML 100 ML @ 25 mls/hr IVPB Q8H NITESH Rx#: [id number] Oral 200 / 200 Blood Product 300 / 300 900 / 900 Rbcs Leuko Poor As-1 300 / 300 300 / 300 Unit [id number] Rbcs Leuko Poor As-1 600 / 600 Unit [id number] Output: Catheter 2250 / 2250 1300 / 1300 550 / 550 Other: Meal Breakfast Percent of Meal Consumed 80% Blood Glucose* 272 240 258 - Labs CBC & BMP: 07/26/16 17:30 07/26/16 04:30 Labs: Abnormal lab results RBC 2.71 M/mcL (3.82-4.97) L 07/26/16 04:30 Hgb 7.0 g/dL (11.5-15.4) L 07/26/16 17:30 Hct 22.2 % (35.3-44.9) L 07/26/16 17:30 RDW 15.9 % (11.5-14.5) H 07/26/16 04:30 Plt Count 135 K/mcL (140-400) L 07/26/16 04:30 Lymphocytes # 0.4 K/mcL (0.6-4.6) L 07/25/16 04:03 Potassium 5.7 mEq/L (3.5-4.5) H 07/26/16 04:30 BUN 25 mg/dL (7-20) H D 07/26/16 04:30 Creatinine 1.19 mg/dL (0.57-1.11) H 07/26/16 04:30 Est GFR ( Amer) 53 (> 60) L 07/26/16 04:30 Est GFR (Non-Af Amer) 44 (> 60) L 07/26/16 04:30 Glucose 204 mg/dL (70-99) H 07/26/16 04:30 POC Glucose 211 (58-89) H 07/27/16 00:13 Hemoglobin A1c 6.9 % (-5.6) H 07/25/16 04:03 Calcium 8.2 mg/dL (8.6-10.8) L 07/26/16 04:30 Iron 44 mcg/dL (50-170) L 07/25/16 09:00 Creatine Kinase 758 Units/L (29-168) H 07/26/16 09:37 Urine Glucose (UA) >=1000 mg/dL (Normal) H 07/24/16 01:43 Ur Squamous Epith Cells Many per lpf (None-Few) H 07/24/16 01:43 - VTE Documentation of Mechanical Device: Intermittent pneumatic compression device Consult Discharge Plan - Plan Referrals: Amy Ryan MD [Primary Care Provider] -
[2016-07-27 09:09] LABS: Basophils % 0.4 %; Eosinophils # 0.7 K/mcL (0.0-0.6); Eosinophils % 7.7 %; Hematocrit 28.2 % (35.3-44.9); Hemoglobin 9.2 g/dL (11.5-15.4); Immature Granulocytes % 0.9 % (0-4); Lymphocytes # 0.9 K/mcL (0.6-4.6); Lymphocytes % 10.8 %; Mean Corpuscular HGB Conc 32.6 g/dL (31.6-35.5); Mean Corpuscular Hemoglobin 28.5 pg (28.0-33.3); Mean Corpuscular Volume 87.3 fL (83.0-100.0); Monocytes # 0.6 K/mcL (0.0-1.3); Monocytes % 6.8 %; Neutrophils # 6.3 K/mcL (1.6-8.9); Platelet Count 133 K/mcL (140-400); Red Blood Count 3.23 M/mcL (3.82-4.97); Red Cell Distribution Width 16.2 % (11.5-14.5); Segmented Neutrophils % 73.4 %
[2016-07-27 09:19] LABS: Calcium 8.1 mg/dL (8.6-10.8); Magnesium 1.6 mg/dL (1.6-2.6)
[2016-07-27 09:21] LABS: Potassium 4.5 mEq/L (3.5-4.5)
--- NOTE | 2016-07-27 10:08 | Internal Med Progress Note ---
<Deshawn Gtz - Last Filed: 07/27/16 14:19> Date of Encounter: 07/27/16 Time of Encounter: 10:00 - Assessment and plan (1) Humerus distal fracture Current Visit: Yes Status: Acute Assessment and plan: Right distal humerus fracture s/p mechanical fall. Evidenced on Right humerus xray. On 07/25/16 s/p Right distal humerus open reduction internal fixation by Dr. Stafford. Cont pain control measures. Orthopedic service following, appreciate recs. PT/OT/SW Qualifiers: Encounter type: initial encounter Fracture type: closed Fracture morphology: other fracture Fracture alignment: displaced Laterality: right Qualified Code(s): S42.491A - Other displaced fracture of lower end of right humerus, initial encounter for closed fracture (2) Rhabdomyolysis Current Visit: Yes Status: Acute Assessment and plan: Evidenced by elevated CK, K+ in setting of right humerus fracture. Hyperkalemia may be reflective of myocyte destruction. Agree with continuing IVF with bicarbonate. Monitor renal function. Anticipate improvement following fracture repair of Right humerus. 07/26/16 CK 758 07/27/16 Monitor clinically, hyperkalemia has improved. Qualifiers: Rhabdomyolysis type: traumatic Encounter type: initial encounter Qualified Code(s): T79.6XXA - Traumatic ischemia of muscle, initial encounter (3) Anemia Current Visit: Yes Status: Acute Assessment and plan: Normocytic anemia, with likely multifactorial etiologies. Suspect acute blood loss from humerus fracture, chronic disease per diabetes and diabetic foot ulcer. Patient affirmed no bloody stool/urine. Hgb 9.8 to 7.6 on 07/25/16, transfused 1 UPRBC Obtained Iron profile and ferritin: suggests BRADEN, will supplement. 07/26/16 Repeat H/H in afternoon, transfuse if Hgb<8.0 Hgb 7, to transfuse 2 U PRBC 07/27/16 Hgb 9.2, responded appropriately. Cont to monitor, no signs active bleed. Qualifiers: Anemia type: iron deficiency Iron deficiency anemia type: unspecified iron deficiency Qualified Code(s): D50.9 - Iron deficiency anemia, unspecified (4) Diabetes mellitus Current Visit: Yes Status: Chronic Assessment and plan: Insulin-dependant diabetic. SSI medium Addn Levemir 10 U SC BID. She is not eating much, so will cautiously re- introduce basal dosing. Qualifiers: Diabetes mellitus type: type 2 Diabetes mellitus complication status: with unspecified complications Diabetes mellitus networks computer consultant insulin use: with networks computer consultant use Qualified Code(s): E11.8 - Type 2 diabetes mellitus with unspecified complications; Z79.4 - longterm (current) use of insulin (5) Morbid obesity with BMI of 45.0-49.9, adult Current Visit: Yes Status: Chronic Assessment and plan: Advised on diet and lifestyle modifications. (6) Diabetic ulcer of heel Current Visit: Yes Status: Chronic Assessment and plan: Per wound care and podiatry recs. Keep elevated and off pressure. (7) Laceration of toe of left foot Current Visit: Yes Status: Acute Assessment and plan: Appreciate podiatry input. S/P power-washing and sutured on 07/25/16. Qualifiers: Encounter type: subsequent encounter Qualified Code(s): S91.119D - Laceration without foreign body of unspecified toe without damage to nail, subsequent encounter (8) DVT prophylaxis Current Visit: No Status: Resolved Assessment and plan: EPCD in light of anemia - Subjective Interval history: Patient seen/eval. She is resting in bed, POD #2 s/p Right distal humerus ORIF, maintains residual pain from surgical sites. She is moving her right hand more, no chest pain/pressure, dyspnea. - Constitutional Vitals: Temp Pulse Resp BP Pulse Ox 98.1 F 86 16 141/75 96 07/27/16 06:52 07/27/16 06:52 07/27/16 06:52 07/27/16 06:52 07/27/16 06:52 General appearance: Present: cooperative, morbidly obese, answers questions appropriately - Head Head exam: Present: atraumatic, normocephalic - Eye Eye exam: Present: EOMI - ENT ENT exam: Present: mucous membranes moist - Neck Neck exam general surgery: Present: supple, trachea midline - Respiratory Respiratory exam: Present: decreased breath sounds (2* habitus), rhonchi (scant) . Absent: wheezes - Cardiovascular Cardiovascular exam: Present: +S1, +S2. Absent: JVD - GI/Abdominal GI/Abdominal exam: Present: soft, no peritoneal signs. Absent: tenderness - Extremities Exam Extremities exam: Present: pedal edema (mild, right heel bandaged, left foot bandaged, sutures in place. Right arm in sling, distal hand nvi) Internal Medicine: Result - Labs CBC & Chem 7: 07/27/16 08:58 07/27/16 08:58 Labs: Short CBC 07/26/16 07/27/16 Range/Units 17:30 08:58 WBC 8.5 (4.3-11.1) K/mcL Hgb 7.0 L 9.2 L D (11.5-15.4) g/dL Hct 22.2 L 28.2 L (35.3-44.9) % Plt Count 133 L (140-400) K/mcL Neutrophils # 6.3 (1.6-8.9) K/mcL BMP 07/27/16 08:58 Sodium 134 L Potassium 4.5 D Chloride 103 Carbon Dioxide 23 BUN 21 H Creatinine 1.11 Glucose 237 H Calcium 8.1 L - VTE Documentation of Mechanical Device: Intermittent pneumatic compression device Consult Discharge Plan - Plan Referrals: Amy Ryan MD [Primary Care Provider] - <Karan Levine - Last Filed: 07/27/16 16:21> - Constitutional Vitals: Temp Pulse Resp BP Pulse Ox 98.3 F 89 20 123/72 96 07/27/16 14:46 07/27/16 14:46 07/27/16 14:46 07/27/16 14:46 07/27/16 14:46 Internal Medicine: Result - Labs CBC & Chem 7: 07/27/16 08:58 07/27/16 08:58 Labs: Short CBC 07/26/16 07/27/16 Range/Units 17:30 08:58 WBC 8.5 (4.3-11.1) K/mcL Hgb 7.0 L 9.2 L D (11.5-15.4) g/dL Hct 22.2 L 28.2 L (35.3-44.9) % Plt Count 133 L (140-400) K/mcL Neutrophils # 6.3 (1.6-8.9) K/mcL BMP 07/27/16 08:58 Sodium 134 L Potassium 4.5 D Chloride 103 Carbon Dioxide 23 BUN 21 H Creatinine 1.11 Glucose 237 H Calcium 8.1 L - Attending Attestation I examined this patient and my medical decision-making was reviewed with the DOUBLE SPINDLE SHAPER OPERATOR/PA/Advanced Practice Nurse/Resident Physician. I agree with the documented findings, disposition and treatment plan as described except to the extent set forth below. Continue monitoring, follow up potassium tomorrow in a.m. Pain control. PRBC today. Needs discharge to subacute rehabilitation center, follow up with child protective services social worker.
[2016-07-27] MEDS: Magnesium Oxide 400 MG TABLET PO SCH (10:41)
[2016-07-27] MEDS: Insulin DETEMIR 100 UNIT/ML X5UNITS SQ SCH ×2 (10:41→20:46)
[2016-07-27] MEDS: Furosemide 20 MG TABLET PO SCH (14:04)
--- NOTE | 2016-07-27 21:15 | Operative Note ---
Date of procedure: 07/25/16 Pre-op diagnosis: laceration right foot digits 4,5. Post-op diagnosis: same Procedure: Repair of laceration to right foot fourth and fifth digits with irrigation and debridement. Implants: none Complications: none Anesthesia: CRISTIANO Surgeon: Arnaud Miguel Estimated blood loss (cc): 1 Specimen: none Condition: stable Disposition: PACU Procedure in Detail: The patient was transported to the operative room placed on the operating table in the semilateral position. The foot was scrubbed prepped and draped in the usual aseptic fashion. A timeout was performed. The foot was inspected and there is noted to be slightly irregular borders along the laceration site. The irregular borders of the dermis, epidermis, subcutaneous tissue were debrided to obtain a smooth surface along both laceration sites. After adequate preparation for repair of the laceration site was performed the site was pulse irrigated with 3 L of normal saline. After irrigation the lacerations were repaired utilizing 3-0 Vicryl. After the laceration sites were adequately repaired they were dressed with Betadine soaked gauze and Kerlix. The patient was transferred to the recovery room with vital signs stable and vascular status intact to both feet. The patient will be readmitted to the floor per anesthesia. Patient will need to minimize her weightbearing. Patient will likely be best served with a surgical shoe to protect her foot. Antibiotics will be administered for prevention of infection at the laceration sites.
[2016-07-28] MEDS: *HR* HYDROmorphone (PF) 1 MG/ML SYRINGE IVP PRN (01:17)
[2016-07-28 05:05] LABS: Basophils % 0.4 %; Eosinophils # 0.8 K/mcL (0.0-0.6); Eosinophils % 10.1 %; Hematocrit 26.7 % (35.3-44.9); Hemoglobin 8.7 g/dL (11.5-15.4); Immature Granulocytes % 0.8 % (0-4); Lymphocytes # 0.5 K/mcL (0.6-4.6); Lymphocytes % 6.5 %; Mean Corpuscular HGB Conc 32.6 g/dL (31.6-35.5); Mean Corpuscular Hemoglobin 28.8 pg (28.0-33.3); Mean Corpuscular Volume 88.4 fL (83.0-100.0); Mean Platelet Volume 11.3 fL (9.4-12.4); Monocytes # 0.8 K/mcL (0.0-1.3); Monocytes % 10.1 %; Neutrophils # 5.4 K/mcL (1.6-8.9); Platelet Count 131 K/mcL (140-400); Red Blood Count 3.02 M/mcL (3.82-4.97); Red Cell Distribution Width 16.2 % (11.5-14.5); Segmented Neutrophils % 72.1 %
[2016-07-28 05:19] LABS: BUN/Creatinine Ratio 24 (6-26); Blood Urea Nitrogen 22 mg/dL (7-20); Calcium 8.4 mg/dL (8.6-10.8); Carbon Dioxide 27 mEq/L (19-29); Chloride 103 mEq/L (98-109); Glucose 183 mg/dL (70-99); Magnesium 1.8 mg/dL (1.6-2.6); Osmolality,Calculated 288 (280-300); Potassium 4.4 mEq/L (3.5-4.5); Sodium 135 mEq/L (136-145); eGFR For African Americans > 60 (> 60); eGFR For Non-African Americans 59 (> 60)
[2016-07-28] MEDS: Furosemide 20 MG TABLET PO SCH (08:08)
[2016-07-28] MEDS: Folic Acid 1 MG TABLET PO SCH (08:08)
[2016-07-28] MEDS: *HR* OxyCODONE/APAP 7.5/325 TABLET PO PRN ×3 (08:08→16:59)
[2016-07-28] MEDS: Magnesium Oxide 400 MG TABLET PO SCH (08:08)
[2016-07-28] MEDS: Pregabalin 75 MG CAPSULE PO SCH ×2 (08:08→15:44)
[2016-07-28] MEDS: Nystatin POWDER 30 GM BOTTLE TP SCH (08:09)
[2016-07-28] MEDS: Pantoprazole 40 MG VIAL IVP SCH (08:09)
[2016-07-28] MEDS: Insulin LISPRO 300 UNITS/3 ML VIAL SQ SCH ×3 (08:11→17:00)
[2016-07-28] MEDS: Insulin DETEMIR 100 UNIT/ML X5UNITS SQ SCH (10:49)
[2016-07-28 11:13] VITALS: BP 134/67
--- NOTE | 2016-07-28 11:37 | Discharge Summary ---
<Deshawn Gtz - Last Filed: 07/28/16 14:12> Date of Encounter: 07/28/16 Time of Encounter: 09:55 - Discharge Diagnosis (1) Humerus distal fracture Priority: Primary Status: Acute Qualifiers: Encounter type: initial encounter Fracture type: closed Fracture morphology: other fracture Fracture alignment: displaced Laterality: right Qualified Code(s): S42.491A - Other displaced fracture of lower end of right humerus, initial encounter for closed fracture (2) Rhabdomyolysis Priority: Primary Status: Acute Qualifiers: Rhabdomyolysis type: traumatic Encounter type: initial encounter Qualified Code(s): T79.6XXA - Traumatic ischemia of muscle, initial encounter (3) Anemia Priority: Secondary Status: Acute Qualifiers: Anemia type: iron deficiency Iron deficiency anemia type: unspecified iron deficiency Qualified Code(s): D50.9 - Iron deficiency anemia, unspecified (4) Diabetes mellitus Priority: Secondary Status: Chronic Qualifiers: Diabetes mellitus type: type 2 Diabetes mellitus complication status: with unspecified complications Diabetes mellitus snf insulin use: with extermination inspector use Qualified Code(s): E11.8 - Type 2 diabetes mellitus with unspecified complications; Z79.4 - correction (current) use of insulin (5) Morbid obesity with BMI of 45.0-49.9, adult Priority: Secondary Status: Chronic (6) Diabetic ulcer of heel Priority: Secondary Status: Chronic (7) Laceration of toe of left foot Priority: Secondary Status: Chronic Qualifiers: Encounter type: subsequent encounter Qualified Code(s): S91.119D - Laceration without foreign body of unspecified toe without damage to nail, subsequent encounter (8) DVT prophylaxis Priority: Secondary Status: Resolved - Discharge Medications Prescriptions: OxyCODONE/APAP 7.5/325 [Percocet 7.5/325 MG] 1 each PO Q4HR PRN #80 tablet PRN Reason: Pain Cephalexin [Keflex] 500 mg PO BID #10 capsule Docusate [Colace] 100 mg PO BID #40 capsule Magnesium Oxide [Mag-Ox] 400 mg PO DAILY #20 tablet Sennosides [Senna] 8.6 mg PO BID #40 tablet Home Medications: Aspirin [Adult Low Dose Aspirin EC] 81 mg PO DAILY 08/22/15 [History] Enalapril Maleate [Vasotec] 10 mg PO BID 08/22/15 [History] Insulin Glargine,Hum.rec.anlog [Lantus Solostar] 110 unit SQ QAM 08/22/15 [ History] Pioglitazone HCl [Actos] 30 mg PO DAILY 08/22/15 [History] Pregabalin [Lyrica] 150 mg PO TID 08/22/15 [History] Simvastatin [Zocor] 20 mg PO DAILY 08/22/15 [History] Ferrous Sulfate 325 mg PO BID #60 tablet 08/28/15 [Rx] Omeprazole [PriLOSEC] 40 mg PO DAILY@0630 #30 capsule 08/28/15 [Rx] Folic Acid 1 mg PO DAILY #90 tablet 09/24/15 [Rx] Cyanocobalamin (B-12) [Vitamin B12] 1 ml IM QMONTH 07/24/16 [History] Levocetirizine Dihydrochloride [Xyzal] 5 mg PO DAILY 07/24/16 [History] Nystatin POWDER [Nystop] 1 appl TP BID 07/24/16 [History] Cephalexin [Keflex] 500 mg PO BID #10 capsule 07/28/16 [Rx] Docusate [Colace] 100 mg PO BID #40 capsule 07/28/16 [Rx] Magnesium Oxide [Mag-Ox] 400 mg PO DAILY #20 tablet 07/28/16 [Rx] OxyCODONE/APAP 7.5/325 [Percocet 7.5/325 MG] 1 each PO Q4HR PRN #80 tablet 07/28 [Rx] Sennosides [Senna] 8.6 mg PO BID #40 tablet 07/28/16 [Rx] Allergies/Adverse Reactions: Allergies No Known Allergies Allergy (Verified 01/10/16 12:42) Date of admission: 07/24/16 02:22 Primary care physician: Amy Ryan, Consults: 07/24/16 03:10 Consult to Watch Supervisor [CONS] Routine Reason for SW Consult: . 07/24/16 10:19 Consult to Wound Care [CONS] Routine Reason for Consult: Diabetic, Right heel ulcer, left forefoot laceration Call Completed: No 07/24/16 14:33 Consult to Invasive Line Access Team [CONS] Routine Reason for Consult: Limited vascular access Line Type: PICC 07/26/16 08:09 Consult to Occupational Therapy [CONS] Routine Comment: OOB, transfer training. NWB LLE & RUE 07/26/16 08:10 Consult to Physical Therapy [CONS] Routine Comment: OOB, transfer training. NWB LLE & JALEEL. Discharging clinician: Karan Levine Anticipated date of discharge: 07/28/16 - Patient Status Disposition: Transfer SNF Condition: Fair Functional capacity at discharge: wheelchair bound Overall status at discharge: patient is progressing back to baseline - Discharge Instructions Follow Up With: Arnaud Miguel DPM [Partnered Physician] - 08/04/16 8:00 am (Right after Rivera appt) Ignacio Stafford MD [Partnered Physician] - 08/04/16 8:00 am (Patient has an appointmnet to see Dr. Miguel after Dr. Kauffman 0800 appointmnet on this day.) Additional Instructions: Non-weight bearing to right arm and left foot. Take medications as prescribed. Activity as tolerated. Go to scheduled follow up appointments. - Diet and Activity Activity: as per physical therapy Diet: diabetic diet Hospital course: Ms. Aguayo is a 75 year old female. Patient would present to [facility] on 07/23/16 with chief concern: Right distal humerus fracture s/p fall. Comorbidities would include: Longstanding debility, diabetes, diabetic neuropathy. Was seen at [facility] for right heel ulcer, had wound vacc, unsure of antibiotics. She has no feeling from her knees down. She would rise from her motorized wheelchair and then fall, catching herself on Right arm, sustaining right distal humerus fracture. She has left foot plantar laceration toes 3-5, she does not know how it happened. Imaging discloses: Right distal humerus fracture. Due to laceration and diabetic heel ulcer, started empiric antibiotic therapy with broad spectrum coverage for anaerobes and pseudomonas in light of her diabetes. Orthopedic service consulted for proximal humerus fracture repair. Podiatry service consulted for right diabetic heel ulcer, left foot toe 3-5 laceration. Patient was medically optimized, with blood glucose control, IV fluids, with careful monitoring of renal status in setting of likely rhabdomyolysis 2* humerus fracture. Hospital course: 07/25/16 Underwent Right distal humerus open reduction internal fixation by Dr. Stafford Ortho recommends: The patient will be seen at postoperative week #1, for dressing changes, check an x-ray, and referred to therapy for active, active assist and gentle passive range of motion exercises. Patient will remain nonweightbearing to the right upper extremity. 07/25/16 Concomittantly, Repair of laceration to left foot fourth and fifth digits with irrigation and debridement by Dr. Miguel. Podiatry recommends: Patient will need to minimize her weightbearing. Patient will likely be best served with a surgical shoe to protect her foot. Antibiotics will be administered for prevention of infection at the laceration sites. Patient's renal function would improve, with CK decreased, reflecting resolution of rhabdomyolysis. Nephrotoxic agents to be held, including her lasix until re-evaluation by her PCP. PT/OT eval, recommends rehab at SNF/ECF. Patient tolerated oral medication, A1C check 6.9, emphasized good blood sugar control. OARRS reviewed and appropriate to single provider Amy Ryan. Patient sustained right proximal humerus fracture, with left foot laceration of toes 3-5 , appropriate for narcotic regimen to be able to perform ADLs and get through rehab. Stool softener and bowel regimen also prescribed. Patient did appear drowsy on exam, prompting adjustment of dose. At time of discharge, patient was clinically improved, hemodynamically stable, progressing to baseline, and agreeable with plan of care. Patient was advised to seek immediate medical attention for any new or worsening symptoms including but not limited to fever, chills, chest pain, chest pressure, dyspnea, cough, abdominal pain, nausea, vomiting, diarrhea, bloody stool, urine and the patient voiced understanding. Patient will follow-up with primary care physician: Amy Ryan. F/U with ortho in 1 week. Finish course of antibiotics for left foot laceration. - Time Spent with Patient Total time spent providing and/or coordinating discharge services: Greater than 30 minutes - Constitutional Vitals: Temp Pulse Resp BP Pulse Ox 98.1 F 94 18 134/67 94 L 07/28/16 10:14 07/28/16 10:14 07/28/16 10:14 07/28/16 10:14 07/28/16 10:14 General appearance: Present: cooperative, morbidly obese, answers questions appropriately - Head Head exam: Present: atraumatic, normocephalic - Eye Eye exam: Present: EOMI, sclera anicteric - ENT ENT exam: Present: mucous membranes moist - Neck Neck exam general surgery: Present: supple, trachea midline - Respiratory Respiratory exam: Present: decreased breath sounds (2* habitus), rhonchi. Absent: wheezes - Cardiovascular Cardiovascular exam: Present: +S1, +S2. Absent: JVD - GI/Abdominal GI/Abdominal exam: Present: soft, no peritoneal signs. Absent: tenderness - Extremities Exam Extremities exam: Present: pedal edema, warm, radial pulses palpable and symetrical Additional comments: mild, right heel bandaged, left foot bandaged, sutures in place. Right arm in sling, distal hand nvi - Neurological Exam Neurological exam: Absent: facial droop, speech deficit - VTE Documentation of Mechanical Device: Intermittent pneumatic compression device <Karan Levine - Last Filed: 07/28/16 17:47> Date of admission: 07/24/16 02:22 Primary care physician: Amy Ryan, Consults: 07/24/16 03:10 Consult to Watch Supervisor [CONS] Routine Reason for SW Consult: . 07/24/16 10:19 Consult to Wound Care [CONS] Routine Reason for Consult: Diabetic, Right heel ulcer, left forefoot laceration Call Completed: No 07/24/16 14:33 Consult to Invasive Line Access Team [CONS] Routine Reason for Consult: Limited vascular access Line Type: PICC 07/26/16 08:09 Consult to Occupational Therapy [CONS] Routine Comment: OOB, transfer training. BRITNI YUEN 07/26/16 08:10 Consult to Physical Therapy [CONS] Routine Comment: OOB, transfer training. Aubrey GISBON & JALEEL. Hospital course: Ms. Aguayo is a 75 year old female - Time Spent with Patient Total time spent providing and/or coordinating discharge services: - Constitutional Vitals: Temp Pulse Resp BP Pulse Ox 98.1 F 94 18 134/67 94 L 07/28/16 10:14 07/28/16 10:14 07/28/16 10:14 07/28/16 10:14 07/28/16 10:14 - Attending Attestation I examined this patient and my medical decision-making was reviewed with the COMPUTER SYSTEMS SECURITY ADMINISTRATOR/PA/Advanced Practice Nurse/Resident Physician. I agree with the documented findings, disposition and treatment plan as described except to the extent set forth below. Stable, continue with management and SNF. Pain control. Remove Whittaker. Continue with antibiotics.
--- NOTE | 2016-07-28 14:36 | Physician Discharge Referral ---
<Jared Gtz-Zahida - Last Filed: 07/28/16 14:35> ExtendedCare Referral Info Transfer To: [facility] Provider in Charge: Abner Provider in Charge after Transfer: PCP Institutional Level of Care: Skilled - Diagnosis (1) Humerus distal fracture Priority: Primary Status: Acute (2) Rhabdomyolysis Priority: Secondary Status: Acute (3) Anemia Priority: Secondary Status: Acute (4) Diabetes mellitus Priority: Secondary Status: Chronic (5) Morbid obesity with BMI of 45.0-49.9, adult Priority: Secondary Status: Chronic (6) Diabetic ulcer of heel Priority: Secondary Status: Chronic (7) Laceration of toe of left foot Priority: Primary Status: Acute (8) DVT prophylaxis Priority: Secondary Status: Acute Prognosis: Fair Aware of Diagnosis: Patient, Family Aware of Prognosis: Patient, Family - Transfer Medications Prescriptions: OxyCODONE/APAP 7.5/325 [Percocet 7.5/325 MG] 1 each PO Q4HR PRN #80 tablet PRN Reason: Pain Cephalexin [Keflex] 500 mg PO BID #10 capsule Docusate [Colace] 100 mg PO BID #40 capsule Magnesium Oxide [Mag-Ox] 400 mg PO DAILY #20 tablet Sennosides [Senna] 8.6 mg PO BID #40 tablet Home Medications: Aspirin [Adult Low Dose Aspirin EC] 81 mg PO DAILY 08/22/15 [History] Enalapril Maleate [Vasotec] 10 mg PO BID 08/22/15 [History] Insulin Glargine,Hum.rec.anlog [Lantus Solostar] 110 unit SQ QAM 08/22/15 [ History] Pioglitazone HCl [Actos] 30 mg PO DAILY 08/22/15 [History] Pregabalin [Lyrica] 150 mg PO TID 08/22/15 [History] Simvastatin [Zocor] 20 mg PO DAILY 08/22/15 [History] Ferrous Sulfate 325 mg PO BID #60 tablet 08/28/15 [Rx] Omeprazole [PriLOSEC] 40 mg PO DAILY@0630 #30 capsule 08/28/15 [Rx] Folic Acid 1 mg PO DAILY #90 tablet 09/24/15 [Rx] Cyanocobalamin (B-12) [Vitamin B12] 1 ml IM QMONTH 07/24/16 [History] Levocetirizine Dihydrochloride [Xyzal] 5 mg PO DAILY 07/24/16 [History] Nystatin POWDER [Nystop] 1 appl TP BID 07/24/16 [History] Cephalexin [Keflex] 500 mg PO BID #10 capsule 07/28/16 [Rx] Docusate [Colace] 100 mg PO BID #40 capsule 07/28/16 [Rx] Magnesium Oxide [Mag-Ox] 400 mg PO DAILY #20 tablet 07/28/16 [Rx] OxyCODONE/APAP 7.5/325 [Percocet 7.5/325 MG] 1 each PO Q4HR PRN #80 tablet 07/28 [Rx] Sennosides [Senna] 8.6 mg PO BID #40 tablet 07/28/16 [Rx] Allergies/Adverse Reactions: Allergies No Known Allergies Allergy (Verified 01/10/16 12:42) - Respiratory Orders Smoking Cessation: Smoking cessation has been advised. For more information, call the [employer] Quit Line at 1-771-TJXQ-NOW. - Advance Directives Living Will: No Power of Business Education Teacher: No Code Status: Full Code - Mobility Orders Chair, Ambulate - Rehabiliation Orders Rehab Potential: Fair Rehab Orders: Sternal Precautions, ROM Exercises, Evaluation for Physical Therapy, Evaluation for Occupational Therapy - Treatments Skin tear care topically daily PRN per policy - Diet Orders No Added Salt (VIKA) CERTIFICATION: I certify that the transfer of the above named patient to an Extended Care Facility is necessary for the continuing treatment of the diagnosis listed. The above information is true and accurate reflection of patient's current condition. Confidential - Redisclosure prohibited without a patient's written consent. <Karan Levine - Last Filed: 07/28/16 17:48> - Respiratory Orders Smoking Cessation: Smoking cessation has been advised. For more information, call the [employer] Quit Line at 1-063-QNVE-NOW. CERTIFICATION: I certify that the transfer of the above named patient to an Extended Care Facility is necessary for the continuing treatment of the diagnosis listed. The above information is true and accurate reflection of patient's current condition. Confidential - Redisclosure prohibited without a patient's written consent.
== END 2016-07-28 18:11 | DRG 493 ==
LOC: 3NENU 21:43 → EMEROO 21:43 → OBSVTOIN 07-24 02:22 → SUATTDRO 07-24 02:22 → 3NENU 07-24 04:01
PROVIDERS: ADMIT Internal Medicine; ATTEND Internal Medicine

== ENCOUNTER 2016-08-08 18:54 | Inpatient (IN) ==
[2016-08-08] MEDS ORDERED: 0.9 % Sodium Chloride 1,000 ML IVC ONE (19:07)
[2016-08-08] MEDS ORDERED: Ondansetron 4 MG/2 ML VIAL IVP ONE (19:11)
[2016-08-08] MEDS ORDERED: *HR* Morphine 2 MG/ML SYRINGE IVP ONE (19:11)
--- NOTE | 2016-08-08 19:11 | Emergency Department Note ---
Disposition Clinical Impression: Lower extremity edema, COPD (chronic obstructive pulmonary disease), CHF ( congestive heart failure), Diabetes mellitus, Fever, Renal insufficiency, Hyperkalemia, Cellulitis, Anemia Disposition: Admitted As Inpatient General Adult HPI - General Chief complaint: ED Wound/Laceration Stated complaint: RUE possible infection to incision Time Seen by Provider: 08/08/16 18:59 Source: patient, family, EMS - History of Present Illness HPI Narrative: 75-year-old female resides at the senior care status post a right arm fracture , she had surgery about 2 weeks ago. She had a fall that time. There is concern for reddening of the right arm. The patient reports she is short of breath and had a slight cough. There is no history of vomiting diarrhea or abdominal pain. No new falls. The patient is noted to be diabetic. She denies any chest pain or syncope. There is no history of difficulty moving the arms or legs independently. She has chronic lower extremity swelling and there is some diabetic toe lesions which are chronic as well. The patient has had no difficulty moving the arms or legs independently. No history of slurred speech neck stiffness or convulsion. No headaches noted. The patient denies any confusion. She started feeling poorly last night. The patient describes some twitching in her arms. The patient was sent to the ED for concerns regarding reddening of the right arm. Onset (ago): hour(s) Pain Scale: 9 - Related Data Home Medications Medication Instructions Recorded Confirmed Aspirin [Adult Low Dose Aspirin EC] 81 mg PO DAILY 08/22/15 07/24/16 Enalapril Maleate [Vasotec] 10 mg PO BID 08/22/15 07/24/16 Insulin Glargine,Hum.rec.anlog 110 unit SQ QAM 08/22/15 07/24/16 [Lantus Solostar] Pioglitazone HCl [Actos] 30 mg PO DAILY 08/22/15 07/24/16 Pregabalin [Lyrica] 150 mg PO TID 08/22/15 07/24/16 Simvastatin [Zocor] 20 mg PO DAILY 08/22/15 07/24/16 Cyanocobalamin (B-12) [Vitamin B12] 1 ml IM QMONTH 07/24/16 07/24/16 Levocetirizine Dihydrochloride 5 mg PO DAILY 07/24/16 07/24/16 [Xyzal] Nystatin POWDER [Nystop] 1 appl TP BID 07/24/16 07/24/16 Previous Rx's Medication Instructions Recorded Ferrous Sulfate 325 mg PO BID #60 tablet 08/28/15 Omeprazole [PriLOSEC] 40 mg PO DAILY@0630 #30 capsule 08/28/15 Folic Acid 1 mg PO DAILY #90 tablet 09/24/15 Cephalexin [Keflex] 500 mg PO BID #10 capsule 07/28/16 Docusate [Colace] 100 mg PO BID #40 capsule 07/28/16 Magnesium Oxide [Mag-Ox] 400 mg PO DAILY #20 tablet 07/28/16 OxyCODONE/APAP 7.5/325 [Percocet 1 each PO Q4HR PRN #80 tablet 07/28/16 7.5/325 MG] Sennosides [Senna] 8.6 mg PO BID #40 tablet 07/28/16 Allergies Allergy/AdvReac Type Severity Reaction Status Date / Time No Known Allergies Allergy Verified 01/10/16 12:42 All systems ED: reviewed and negative except as stated. Past Medical History - Past Medical History Medical history: Reports: arthritis, CHF, COPD, diabetes, hypertension Surgical history: Reports: non-contributory Psychiatric history: Reports: depression - Social History Smoking Status: Never smoker Smokeless Tobacco Status: No Alcohol use: Reports: none Drug use: Reports: none Physical Exam - General Limitations: no limitations General appearance: in no apparent distress, obese, other (The patient's upper extremities twitch on occasion uncontrollably) - Head Head exam: atraumatic, normocephalic, normal inspection - Eye Eye exam: Present: normal appearance, PERRL, EOMI - ENT ENT exam: normal exam, normal oropharynx, mucous membranes moist, TM's normal bilaterally, normal external ear exam - Neck Neck exam: Present: normal inspection, full ROM, trachea midline. Absent: meningismus - Chest Chest inspection: Absent: tenderness - Respiratory Respiratory exam: Present: prolonged expiratory phase. Absent: respiratory distress - Cardiovascular Cardiovascular exam: Present: regular rate, normal rhythm, normal heart sounds - Abdominal Exam Abdominal exam: Present: soft, Non-Tender. Absent: tenderness, distention, guarding, rebound, rigidity, pulsatile mass - Extremities Exam Extremities exam: Present: full ROM, tenderness, normal capillary refill, other (Bilateral lower extremities show chronic venous stasis changes and edema. Some erythema of the legs. Upper extremities are generally supple, surgical wound right side shows multiple joseph without dehiscence, there is marked cellulitic change without crepitance of the skin, there is no fluctuance or abscess. There appears to be postoperative bruising. Both upper extremities show good range of motion without evidence of acute neurovascular or neuromuscular compromise. No crepitance of the skin. All 4 extremities are warm and well perfused.) - Expanded Lower Extremity Exam Hip/Pelvis exam: Present: full ROM. Absent: tenderness Upper leg exam: Present: full ROM. Absent: tenderness Knee exam: Present: full ROM. Absent: tenderness Lower leg exam: Present: full ROM, swelling. Absent: tenderness Neurovascular/Tendon exam: Absent: motor deficit, sensory deficit, tendon deficit - Back Exam Back exam: Present: normal inspection, full ROM. Absent: tenderness, CVA tenderness (R), CVA tenderness (L), vertebral tenderness - Neurological Exam Neurological exam: Present: alert, oriented X3, CN II-XII intact. Absent: motor sensory deficit - Psychiatric Psychiatric exam: Present: normal affect, normal mood - Skin Skin exam: Present: warm, dry, other (Bruising right arm area no evidence of wound dehiscence, significant cellulitic change without fluctuance.). Absent: rash, cyanosis, diaphoresis, pallor, mottled Course Vital Signs Temperature 100.8 F H 08/08/16 18:57 Pulse Rate 85 08/08/16 18:57 Respiratory Rate 20 08/08/16 18:57 Blood Pressure 124/58 08/08/16 18:57 O2 Sat by Pulse Oximetry 95 08/08/16 18:57 Temperature 100.8 F H 08/08/16 18:57 Pulse Rate 73 08/08/16 19:48 Respiratory Rate 20 08/08/16 19:48 Blood Pressure 124/48 08/08/16 19:48 O2 Sat by Pulse Oximetry 94 L 08/08/16 19:48 Oxygen Delivery Oxygen Delivery Room Air Medical Decision Making - MDM Narrative Medical decision making narrative: The patient has a fever and cellulitic changes in the operative area on the right upper extremity. Vancomycin and Zosyn were ordered. IV fluids were given , hyperkalemia protocol was initiated. Based on the patient's acute febrile illness, recent surgery, changes consistent with significant cellulitis, multiple comorbidities including diabetes, age, and symptomatic hyperkalemia, I think it would be appropriate to admit the patient. I discussed the case with the hospitalist on-call who has accepted the patient to their care. - Lab Data Lab results reviewed: Yes I reviewed the patient's lab results. Result diagrams: 08/08/16 19:30 08/08/16 19:30 Lab Results 08/08/16 08/08/16 08/08/16 Range/Units 19:30 19:30 19:30 WBC 9.7 (4.3-11.1) K/mcL RBC 3.21 L (3.82-4.97) M/mcL Hgb 9.1 L (11.5-15.4) g/dL Hct 28.5 L (35.3-44.9) % MCV 88.8 (83.0-100.0) fL MCH 28.3 (28.0-33.3) pg MCHC 31.9 (31.6-35.5) g/dL RDW 15.8 H (11.5-14.5) % Plt Count 345 (140-400) K/mcL MPV 10.7 (9.4-12.4) fL Immature Gran % 0.4 (0-4) % Seg Neutrophils % 81.6 % Lymphocytes % 7.6 % Monocytes % 8.0 % Eosinophils % 1.9 % Basophils % 0.5 % Neutrophils # 7.9 (1.6-8.9) K/mcL Lymphocytes # 0.7 (0.6-4.6) K/mcL Monocytes # 0.8 (0.0-1.3) K/mcL Eosinophils # 0.2 (0.0-0.6) K/mcL Basophils # 0.1 (0.0-0.2) K/mcL PT (9.4-12.1) Seconds INR APTT (26.0-36.0) Seconds Sodium 132 L (136-145) mEq/L Potassium 6.1 H (3.5-4.5) mEq/L Chloride 100 (98-109) mEq/L Carbon Dioxide 23 (19-29) mEq/L BUN 33 H (7-20) mg/dL Creatinine 1.43 H (0.57-1.11) mg/dL Est GFR ( Amer) 43 L (> 60) Est GFR (Non-Af Amer) 36 L (> 60) BUN/Creatinine Ratio 23 (6-26) Glucose 149 H (70-99) mg/dL Calculated Osmolality 284 (280-300) Lactic Acid 1.0 (0.5-2.2) mmol/L Calcium 8.9 (8.6-10.8) mg/dL Total Bilirubin (0.2-1.2) mg/dL Direct Bilirubin (0.0-0.5) mg/dL Indirect Bilirubin (0.0-1.2) mg/dL AST (5-34) Units/L ALT (0-55) Units/L Alkaline Phosphatase (38-126) Units/L Troponin I (0-0.03) ng/mL C-Reactive Protein (Less than 5) mg/L B-Natriuretic Peptide (0-100) pg/mL Serum Total Protein (6.0-8.3) g/dL Albumin (3.5-5.0) g/dL Globulin (2.4-3.5) g/dL Albumin/Globulin Ratio (1.1-2.2) Urine Color (Yellow) Urine Clarity (Clear) Urine pH (5.0-8.0) pH Units Ur Specific [place] (1.010-1.025) Urine Protein (Neg-Trace) mg/dL Urine Glucose (UA) (Normal) mg/dL Urine Ketones (Negative) mg/dL Urine Blood (Negative) Urine Nitrite (Negative) Urine Bilirubin (Negative) Urine Urobilinogen (Normal) mg/dL Ur Leukocyte Esterase (Negative) Ur Culture Indicated? (NO) 08/08/16 08/08/16 08/08/16 Range/Units 19:30 19:30 19:30 WBC (4.3-11.1) K/mcL RBC (3.82-4.97) M/mcL Hgb (11.5-15.4) g/dL Hct (35.3-44.9) % MCV (83.0-100.0) fL MCH (28.0-33.3) pg MCHC (31.6-35.5) g/dL RDW (11.5-14.5) % Plt Count (140-400) K/mcL MPV (9.4-12.4) fL Immature Gran % (0-4) % Seg Neutrophils % % Lymphocytes % % Monocytes % % Eosinophils % % Basophils % % Neutrophils # (1.6-8.9) K/mcL Lymphocytes # (0.6-4.6) K/mcL Monocytes # (0.0-1.3) K/mcL Eosinophils # (0.0-0.6) K/mcL Basophils # (0.0-0.2) K/mcL PT 12.1 (9.4-12.1) Seconds INR 1.1 APTT 32.4 (26.0-36.0) Seconds Sodium (136-145) mEq/L Potassium (3.5-4.5) mEq/L Chloride (98-109) mEq/L Carbon Dioxide (19-29) mEq/L BUN (7-20) mg/dL Creatinine (0.57-1.11) mg/dL Est GFR ( Amer) (> 60) Est GFR (Non-Af Amer) (> 60) BUN/Creatinine Ratio (6-26) Glucose (70-99) mg/dL Calculated Osmolality (280-300) Lactic Acid (0.5-2.2) mmol/L Calcium (8.6-10.8) mg/dL Total Bilirubin 0.6 (0.2-1.2) mg/dL Direct Bilirubin 0.2 (0.0-0.5) mg/dL Indirect Bilirubin 0.4 (0.0-1.2) mg/dL AST 14 (5-34) Units/L ALT 15 (0-55) Units/L Alkaline Phosphatase 123 (38-126) Units/L Troponin I 0.01 (0-0.03) ng/mL C-Reactive Protein 31 H (Less than 5) mg/L B-Natriuretic Peptide (0-100) pg/mL Serum Total Protein 6.0 (6.0-8.3) g/dL Albumin 2.8 L (3.5-5.0) g/dL Globulin 3.2 (2.4-3.5) g/dL Albumin/Globulin Ratio 0.9 L (1.1-2.2) Urine Color (Yellow) Urine Clarity (Clear) Urine pH (5.0-8.0) pH Units Ur Specific [place] (1.010-1.025) Urine Protein (Neg-Trace) mg/dL Urine Glucose (UA) (Normal) mg/dL Urine Ketones (Negative) mg/dL Urine Blood (Negative) Urine Nitrite (Negative) Urine Bilirubin (Negative) Urine Urobilinogen (Normal) mg/dL Ur Leukocyte Esterase (Negative) Ur Culture Indicated? (NO) 08/08/16 08/08/16 Range/Units 19:41 20:16 WBC (4.3-11.1) K/mcL RBC (3.82-4.97) M/mcL Hgb (11.5-15.4) g/dL Hct (35.3-44.9) % MCV (83.0-100.0) fL MCH (28.0-33.3) pg MCHC (31.6-35.5) g/dL RDW (11.5-14.5) % Plt Count (140-400) K/mcL MPV (9.4-12.4) fL Immature Gran % (0-4) % Seg Neutrophils % % Lymphocytes % % Monocytes % % Eosinophils % % Basophils % % Neutrophils # (1.6-8.9) K/mcL Lymphocytes # (0.6-4.6) K/mcL Monocytes # (0.0-1.3) K/mcL Eosinophils # (0.0-0.6) K/mcL Basophils # (0.0-0.2) K/mcL PT (9.4-12.1) Seconds INR APTT (26.0-36.0) Seconds Sodium (136-145) mEq/L Potassium (3.5-4.5) mEq/L Chloride (98-109) mEq/L Carbon Dioxide (19-29) mEq/L BUN (7-20) mg/dL Creatinine (0.57-1.11) mg/dL Est GFR ( Amer) (> 60) Est GFR (Non-Af Amer) (> 60) BUN/Creatinine Ratio (6-26) Glucose (70-99) mg/dL Calculated Osmolality (280-300) Lactic Acid (0.5-2.2) mmol/L Calcium (8.6-10.8) mg/dL Total Bilirubin (0.2-1.2) mg/dL Direct Bilirubin (0.0-0.5) mg/dL Indirect Bilirubin (0.0-1.2) mg/dL AST (5-34) Units/L ALT (0-55) Units/L Alkaline Phosphatase (38-126) Units/L Troponin I (0-0.03) ng/mL C-Reactive Protein (Less than 5) mg/L B-Natriuretic Peptide 140 H (0-100) pg/mL Serum Total Protein (6.0-8.3) g/dL Albumin (3.5-5.0) g/dL Globulin (2.4-3.5) g/dL Albumin/Globulin Ratio (1.1-2.2) Urine Color Yellow (Yellow) Urine Clarity Clear (Clear) Urine pH 6.0 (5.0-8.0) pH Units Ur Specific [place] 1.012 (1.010-1.025) Urine Protein Negative (Neg-Trace) mg/dL Urine Glucose (UA) Normal (Normal) mg/dL Urine Ketones Negative (Negative) mg/dL Urine Blood Negative (Negative) Urine Nitrite Negative (Negative) Urine Bilirubin Negative (Negative) Urine Urobilinogen Normal (Normal) mg/dL Ur Leukocyte Esterase Negative (Negative) Ur Culture Indicated? NO (NO)
[2016-08-08 19:56] LABS: Basophils # 0.1 K/mcL (0.0-0.2); Basophils % 0.5 %; Eosinophils # 0.2 K/mcL (0.0-0.6); Eosinophils % 1.9 %; Hematocrit 28.5 % (35.3-44.9); Hemoglobin 9.1 g/dL (11.5-15.4); Immature Granulocytes % 0.4 % (0-4); Lymphocytes # 0.7 K/mcL (0.6-4.6); Lymphocytes % 7.6 %; Mean Corpuscular HGB Conc 31.9 g/dL (31.6-35.5); Mean Corpuscular Hemoglobin 28.3 pg (28.0-33.3); Mean Corpuscular Volume 88.8 fL (83.0-100.0); Mean Platelet Volume 10.7 fL (9.4-12.4); Monocytes # 0.8 K/mcL (0.0-1.3); Neutrophils # 7.9 K/mcL (1.6-8.9); Platelet Count 345 K/mcL (140-400); Red Blood Count 3.21 M/mcL (3.82-4.97); Red Cell Distribution Width 15.8 % (11.5-14.5); Segmented Neutrophils % 81.6 %
[2016-08-08 20:02] LABS: INR 1.1; Prothrombin Time 12.1 Seconds (9.4-12.1)
[2016-08-08 20:05] LABS: Activated Partial Thrombo Time 32.4 Seconds (26.0-36.0)
[2016-08-08 20:07] LABS: Calcium 8.9 mg/dL (8.6-10.8); Potassium 6.1 mEq/L (3.5-4.5)
[2016-08-08 20:09] LABS: Albumin 2.8 g/dL (3.5-5.0); Albumin/Globulin Ratio 0.9 (1.1-2.2); Bilirubin,Direct 0.2 mg/dL (0.0-0.5); Bilirubin,Indirect 0.4 mg/dL (0.0-1.2); Bilirubin,Total 0.6 mg/dL (0.2-1.2); Globulin 3.2 g/dL (2.4-3.5)
[2016-08-08] MEDS ORDERED: *HR* Dextrose 50 % in Water (Syg) 50 ML SYRINGE IVP ONE (20:11)
[2016-08-08] MEDS ORDERED: Albuterol 2.5 MG/3 ML NEBULIZER IH ONE (20:11)
[2016-08-08] MEDS ORDERED: Calcium Gluconate 1,000 MG in D5% in Water 100 ML IVPB ONE (20:11)
[2016-08-08] MEDS ORDERED: Insulin Human Regular 10 UNIT in 0.9 % Sodium Chloride 10 ML IV ONE (20:11)
[2016-08-08] MEDS ORDERED: Piperacillin/Tazobactam 3.375 GM in D5% in Water (Mini-Bag+) 100 ML IVPB ONE (20:17)
[2016-08-08] MEDS ORDERED: Vancomycin 1,000 MG in D5% in Water 250 ML IVPB ONE (20:17)
[2016-08-08 20:24] LABS: Bilirubin,Urine Negative (Negative); Blood,Urine Negative (Negative); Clarity,Urine Clear (Clear); Color,Urine Yellow (Yellow); Glucose,Urine (UA) Normal (Normal); Ketones,Urine Negative (Negative); Leukocyte Esterase,Urine Negative (Negative); Nitrite,Urine Negative (Negative); Protein,Urine Negative (Neg-Trace); Specific Gravity,Urine 1.012 (1.010-1.025); Urobilinogen,Urine Normal (Normal)
[2016-08-08] MEDS ORDERED: Naloxone 0.4 MG/ML INJ IVP PRN (21:14)
[2016-08-08] MEDS ORDERED: Acetaminophen 325 MG TABLET PO PRN (21:14)
[2016-08-08] MEDS ORDERED: MOM Conc 10 ML UD.LIQ PO PRN (21:14)
[2016-08-08] MEDS ORDERED: Ondansetron 4 MG/2 ML VIAL IVP PRN (21:14)
[2016-08-08] MEDS ORDERED: Albuterol 2.5 MG/3 ML NEBULIZER IH PRN (21:30)
[2016-08-08] MEDS ORDERED: Ipratropium/Albuterol Neb 3 ML IH PRN (21:30)
--- NOTE | 2016-08-08 21:34 | Internal Med History&Physical ---
<Surendra Noonan T - Last Filed: 08/08/16 22:59> Date of Encounter: 08/08/16 Internal Medicine - H&P: HPI History of present illness: Ms. Aguayo is a 75 year old female Internal Medicine - H&P: Meds RX: Aspirin [Adult Low Dose Aspirin EC] 81 mg PO DAILY 08/22/15 [History] RX: Enalapril Maleate [Vasotec] 10 mg PO BID 08/22/15 [History] RX: Insulin Glargine,Hum.rec.anlog [Lantus Solostar] 110 unit SQ QAM 08/22/15 [ History] RX: Pioglitazone HCl [Actos] 30 mg PO DAILY 08/22/15 [History] RX: Pregabalin [Lyrica] 150 mg PO TID 08/22/15 [History] RX: Simvastatin [Zocor] 20 mg PO DAILY 08/22/15 [History] RX: Ferrous Sulfate 325 mg PO BID #60 tablet 08/28/15 [Rx] RX: Folic Acid 1 mg PO DAILY #90 tablet 09/24/15 [Rx] RX: Cyanocobalamin (B-12) [Vitamin B12] 1 ml IM QMONTH 07/24/16 [History] RX: Levocetirizine Dihydrochloride [Xyzal] 5 mg PO DAILY 07/24/16 [History] RX: Nystatin POWDER [Nystop] 1 appl TP BID 07/24/16 [History] Docusate [Colace] 100 mg PO BID #40 capsule 07/28/16 [Rx] RX: Magnesium Oxide [Mag-Ox] 400 mg PO DAILY #20 tablet 07/28/16 [Rx] Sennosides [Senna] 8.6 mg PO BID #40 tablet 07/28/16 [Rx] Oxycodone HCl/Acetaminophen [Percocet 7.5-325 mg Tablet] 1 tab PO QID PRN [History] RX: Furosemide [Lasix] 40 mg PO QAM 08/08/16 [History] RX: Omeprazole [PriLOSEC] 40 mg PO DAILY 08/08/16 [History] Allergies No Known Allergies Allergy (Verified 01/10/16 12:42) All Systems PM: A 10-system review of systems was performed and is negative for pertinent findings except as documented above in the HPI. - Constitutional Vitals: Temp Pulse Resp BP Pulse Ox 100.8 F H 73 20 134/58 95 08/08/16 18:57 08/08/16 19:48 08/08/16 20:53 08/08/16 20:53 08/08/16 20:27 Internal Med - H&P Results - Labs CBC & Chem 7: 08/08/16 19:30 08/08/16 19:30 - Attending Attestation I have independently seen and examined this patient and discussed plan of care with her 75 Y/O F with Morbid Obesity, CHF, COPD, DM, s/p ORIF for R humeral fracture presented with fever, redness and pain of her R UE. Additional symptom include cought hat started this morning, as well as flu-like symptoms. Physical Exam is significant for fever, no tachycardia, BP WNL. O2Sat wnl. Upper extremity with diffuse redness surrounding R humerl wound through it lenght with tenderness, incision is intact, no fluctuancy. Additionally, she has Right heel ulcer, healed, left little toe stitches intact , sacral decubitus ulcers. Chest exam revealed diffuse wheezing, heart sounds S1, S2, only, no m/g/r. Abdomen is obese, not tender. Labs and Imaging reviewed: NO leukocytosis, HB was at baseline, HYperkalemia with LAUREN. EKG with supraventricular rhythm, no Peaked T waves, no wide QRS complexes. CXR no acute cardiopulmonary process. Assessment/Plan: Cellulitis, LAUREN, Hyperkalemia, Bronchitis, Very gentle IVF hydration , monitor chem, renally dose Vanco and Zosyn (pharmacy to dose), follow Vanco trough, Check Flu swab, RUE CT to rule out collection/osteo. Check For flu, give duonebs and prednisone. Resume home other home meds. Rest of details as in [employer]'s documentation <Sera Fabian - Last Filed: 08/08/16 23:20> Date of Encounter: 08/08/16 Time of Encounter: 21:10 Assessment and Plan (1) Cellulitis Current visit: Yes Status: Acute Pt is 2 weeks post op s/p ORIF R humerus. Pt with redness and swelling to R upper arm around incision site. No drng, joseph intact, incision approximated Vancomycin (pharmacy to dose-renal dose) IV q12h Zosyn 3.375g IV q 8h Monitor incision Monitor labs Qualifiers: Site of cellulitis: extremity Site of cellulitis of extremity: upper extremity Laterality: right Qualified Code(s): L03.113 - Cellulitis of right upper limb (2) Hyperkalemia Current visit: Yes Status: Acute K+ 6.1 in ED. Pt given cocktail in ED. No peaked T waves on EKG. 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 + audible wheezing and wheezing heard in all post [place]. Chest xray pending. Flu swab Duonebs Albuterol nebs Monitor VS continuous pulse oximetry Prednisone 40mg po daily (5) LAUREN (acute kidney injury) Current visit: Yes Status: Acute BUN and creatinine both elevated. History of same in the past. IVF 0.9NS @75ml/hour Monitor labs (6) CHF (congestive heart failure) Current visit: Yes Status: Chronic Continuous cardiac monitoring Continous pulse oximetry Lasix 20mg po (reduced from home doseage for renal function) Monitor labs Qualifiers: Congestive heart failure type: unspecified congestive heart failure type Congestive heart failure chronicity: chronic Qualified Code(s): I50.9 - Heart failure, unspecified Internal Medicine - H&P: HPI Admitted From: Long-term Nursing Facility Plans for Post Hospital Care: [facility] History of present illness: Ms. Aguayo is a 75 year old female who comes to ED s/p R distal humerus fracture, ORIF, now with cellulitis. Pt has had a fever today of 100.8 and states that she doesn't feel well. VS WNL, pulse 73, respirs 20, and BP 134/58. Pt was discharged from this facility on 07/28/16 after humerus repair. Pt is wheezing and has a cough that started yesterday, reports that cough is sometimes productive. Past Med Surg Social Fam HX - Past Medical History Medical history: arthritis, CHF, COPD, diabetes, hypertension Psychiatric history: depression - Past Surgical History Surgical History: non-contributory - Social History Smoking Status: Never smoker Smokeless Tobacco Status: No Alcohol use: none Drug use: none - Family History Father Hx Family Cancer: Yes (leukemia) Mother Hx Family Cardiac Disorders: Yes (heart disease) All Systems PM: A 10-system review of systems was performed and is negative for pertinent findings except as documented above in the HPI. - Constitutional Constitutional: fever(s), lethargy - Cardiovascular Cardiovascular ROS IM: dyspnea, no chest pain, no diaphoresis, no palpitations - Respiratory Respiratory: cough, wheezing, no chest congestion, no excessive phlegm production - Gastrointestinal Gastrointestinal: no diarrhea, no nausea, no vomiting - Integumentary Additional comments: Pt c/o redness and warmth to RUE surgical incision. Denies drainage. - Constitutional Vitals: Temp Pulse Resp BP Pulse Ox 100.8 F H 73 20 134/58 94 L 08/08/16 18:57 08/08/16 19:48 08/08/16 20:53 08/08/16 20:53 08/08/16 19:48 General appearance: Present: A&O X 3, obese, answers questions appropriately Exam: Pt appears tired and asked that I speak with her . - ENT ENT exam: Present: mucous membranes moist, normal external ear exam Additional comments: Pt reports clear rhinorrhea today. - Neck Neck exam general surgery: Absent: lymphadenopathy, tenderness, thyromegaly - Respiratory Respiratory exam: Present: wheezes. Absent: chest wall tenderness, respiratory distress - Cardiovascular Cardiovascular exam: Present: RRR, +S1, +S2. Absent: diastolic murmur, JVD, systolic murmur, tachycardia - GI/Abdominal GI/Abdominal exam: Present: firm, hypoactive bowel sounds. Absent: tenderness - Expanded Upper Extremities Exam General: Present: laceration (RUE has healing surgical incision, approx 12", vertical from superior RUE to distal elbow. No drng. Incision well approximated , joseph intact. ) - Incison Incision: Present: red, swollen, intact, approximated - Neurological Exam Neurological exam: Present: alert, oriented X3 Internal Med - H&P Results - Labs CBC & Chem 7: 08/08/16 19:30 08/08/16 19:30 - EKG Data Interpretation IM: other EKG comments: 08/08/16 21:48 Supraventricular rhythm, vent rate74, QRS 86ms, Qtc 394ms
[2016-08-08] MEDS ORDERED: *HR* Dextrose 50 % in Water (Syg) 50 ML SYRINGE IVP PRN (22:00)
[2016-08-08] MEDS ORDERED: D5% in Water 1,000 ML IV PRN (22:00)
[2016-08-08] MEDS ORDERED: Vancomycin 1,750 MG in D5% in Water 250 ML IVPB SCH ×2 (22:00)
[2016-08-08] MEDS ORDERED: Dextrose Gel 15 GM PO PRN ×2 (22:00)
[2016-08-08] MEDS ORDERED: 0.9 % Sodium Chloride 1,000 ML IVC SCH (22:15)
[2016-08-08 23:15] LABS: Hemoglobin A1C 6.2 %
[2016-08-08] MEDS ORDERED: Cyanocobalamin (B-12) 1,000 MCG/ML VIAL IM SCH (23:15)
[2016-08-09] MEDS: *HR* HYDROcodone/Acet 5/325 mg TABLET PO PRN ×3 (00:43→17:26)
[2016-08-09 04:07] LABS: Basophils # 0.1 K/mcL (0.0-0.2); Basophils % 0.6 %; Eosinophils # 0.3 K/mcL (0.0-0.6); Eosinophils % 3.5 %; Hematocrit 31.7 % (35.3-44.9); Hemoglobin 9.8 g/dL (11.5-15.4); Immature Granulocytes % 0.6 % (0-4); Lymphocytes # 0.4 K/mcL (0.6-4.6); Lymphocytes % 5.1 %; Mean Corpuscular HGB Conc 30.9 g/dL (31.6-35.5); Mean Corpuscular Hemoglobin 27.7 pg (28.0-33.3); Mean Corpuscular Volume 89.5 fL (83.0-100.0); Mean Platelet Volume 10.7 fL (9.4-12.4); Monocytes # 0.5 K/mcL (0.0-1.3); Neutrophils # 6.6 K/mcL (1.6-8.9); Platelet Count 304 K/mcL (140-400); Red Blood Count 3.54 M/mcL (3.82-4.97); Red Cell Distribution Width 16.1 % (11.5-14.5); Segmented Neutrophils % 84.2 %
[2016-08-09 04:21] LABS: Calcium 8.8 mg/dL (8.6-10.8); Potassium 5.5 mEq/L (3.5-4.5)
[2016-08-09] MEDS: Piperacillin/Tazobactam 3.375 GM in D5% in Water (Mini-Bag+) 100 ML IVPB SCH ×2 (05:41→17:14)
[2016-08-09] MEDS: Insulin LISPRO 300 UNITS/3 ML VIAL SQ SCH ×6 (08:00→17:05)
[2016-08-09] MEDS ORDERED: predniSONE 20 MG TABLET PO SCH (09:00)
[2016-08-09] MEDS: (Levocetirizine Dihydrochloride [Xyzal] 5 MG) PO SCH (09:34)
[2016-08-09] MEDS: Folic Acid 1 MG TABLET PO SCH (09:44)
[2016-08-09] MEDS: Aspirin Enteric Coated 81 MG Tablet PO SCH (09:44)
[2016-08-09] MEDS: Furosemide 40 MG TABLET PO SCH (09:44)
[2016-08-09] MEDS: Magnesium Oxide 400 MG TABLET PO SCH (09:44)
[2016-08-09] MEDS: Vancomycin 1,750 MG in D5% in Water 500 ML IVPB SCH (09:45)
[2016-08-09] MEDS: Pregabalin 75 MG CAPSULE PO SCH ×3 (09:45→21:53)
[2016-08-09] MEDS: Nystatin POWDER 30 GM BOTTLE TP SCH ×2 (09:46→21:53)
[2016-08-09] MEDS ORDERED: Furosemide 40 MG/4 ML VIAL IVP ONE (10:46)
--- NOTE | 2016-08-09 16:23 | Internal Med Progress Note ---
Date of Encounter: 08/09/16 Time of Encounter: 10:00 - Assessment and plan (1) Cellulitis Current Visit: Yes Status: Acute Assessment and plan: Patient has right arm pain, swelling, with discharge. Consider cellulitis. We will continue vancomycin and Zosyn. Consult orthopedics. Patient is at high risk because she is on vancomycin, which need close monitoring. Qualifiers: Site of cellulitis: extremity Site of cellulitis of extremity: upper extremity Laterality: right Qualified Code(s): L03.113 - Cellulitis of right upper limb (2) CKD (chronic kidney disease) Current Visit: Yes Status: Acute Assessment and plan: Patient has CKD, possibly due to diabetes Qualifiers: Chronic kidney disease stage: stage 3 (moderate) Qualified Code(s): N18.3 - Chronic kidney disease, stage 3 (moderate) (3) Hyperkalemia Current Visit: Yes Status: Acute Assessment and plan: Improved after Kayexalate. We will give another dose Kayexalate. Follow-up potassium level (4) CHF (congestive heart failure) Current Visit: Yes Status: Chronic Assessment and plan: Old echo Reviewed (08/2015), LVEF 65%, moderate diastolic dysfunction. Continue Lasix by mouth. Qualifiers: Congestive heart failure type: diastolic Congestive heart failure chronicity: chronic Qualified Code(s): I50.32 - Chronic diastolic (congestive ) heart failure (5) COPD (chronic obstructive pulmonary disease) Current Visit: Yes Status: Chronic Assessment and plan: Stable. Continue nebulizer treatment Qualifiers: COPD type: emphysema Emphysema type: unspecified Qualified Code(s): J43.9 - Emphysema, unspecified (6) Diabetes mellitus Current Visit: Yes Status: Chronic Assessment and plan: Patient takes Lantus 70 units qd previously. We will place her on Levemir 25 units twice a day with prandial insulin and sliding scale. Follow-up glucose level. Qualifiers: Diabetes mellitus type: type 2 Diabetes mellitus complication status: with neurologic complications Diabetes mellitus complication detail: with unspecified neuropathy Diabetes mellitus intermediate insulin use: with intermediate use Qualified Code(s): E11.40 - Type 2 diabetes mellitus with diabetic neuropathy, unspecified; Z79.4 - prison (current) use of insulin (7) DVT prophylaxis Current Visit: Yes Status: Acute Assessment and plan: Heparin subcutaneously. - Time Spent With Patient Greater than 35 minutes - Subjective Interval history: Patient is a 75-year-old female admitted for right arm pain and swelling. Her past medical history is significant for CHF, COPD, diabetes, hypertension. Patient was seen and examined. She complained of pain on the right arm. There is self drainage of right arm wound. The right arm is not tensive. Right radial pulse is good. Patient has a mild shortness of redness, Lasix 40 mg IV once was given. She has low fever at 99.9, vital signs stable. Orthopedic was consulted. Will continue vancomycin and Zosyn treatment. Closely monitor patient. - Constitutional Vitals: Temp Pulse Resp BP Pulse Ox 98.0 F 89 18 110/63 99 08/09/16 15:19 08/09/16 15:19 08/09/16 15:19 08/09/16 15:19 08/09/16 15:19 General appearance: Present: A&O X 3, obese, answers questions appropriately - Head Head exam: Present: atraumatic, normocephalic - Eye Eye exam: Present: PERRL, conjuntiva pink, sclera anicteric Pupils: Present: PERRL - Neck Neck exam general surgery: Present: supple, trachea midline. Absent: lymphadenopathy - Respiratory Respiratory exam: Present: CTAB. Absent: accessory muscle use, rales, rhonchi, wheezes - Cardiovascular Cardiovascular exam: Present: RRR, +S1, +S2. Absent: diastolic murmur, gallop, rubs, systolic murmur - GI/Abdominal GI/Abdominal exam: Present: normal bowel sounds, soft, no peritoneal signs. Absent: distended, tenderness - Extremities Exam Extremities exam: Present: warm, radial pulses palpable and symetrical. Absent : calf tenderness, cyanotic, pedal edema Additional comments: Right arm swelling, warmth, tenderness, with self drainage from the wound. - Neurological Exam Neurological exam: Present: CN II-XII intact, oriented X3, no focal deficits. Absent: pronater drift, facial droop, speech deficit - Skin Skin exam: Present: dry, intact Internal Medicine: Result - Labs CBC & Chem 7: 08/09/16 03:52 08/09/16 03:52 Labs: Short CBC 08/09/16 Range/Units 03:52 WBC 7.9 (4.3-11.1) K/mcL Hgb 9.8 L (11.5-15.4) g/dL Hct 31.7 L (35.3-44.9) % Plt Count 304 (140-400) K/mcL Neutrophils # 6.6 (1.6-8.9) K/mcL BMP 08/09/16 03:52 Sodium 134 L Potassium 5.5 H Chloride 102 Carbon Dioxide 21 BUN 32 H Creatinine 1.38 H Glucose 86 Calcium 8.8 - ABG Interpretation ABG results: PT/INR, D-dimer PT 12.1 Seconds (9.4-12.1) 08/08/16 19:30 - Impressions Impressions Upper Extremity CT 08/09/16 00:00 IMPRESSION: Evaluation somewhat limited as above. Findings within the anterior and lateral upper arm suggestive of cellulitis. Fluid within the subcutaneous fat of the lateral right arm mid aspect of the humerus measures 5.3 x 3.6 x 5.8 cm. No internal foci of gas. This abuts the underlying musculature without definite underlying involvement of musculature. No findings to suggest bony infection. D/ / Cinda Lynch MD / Cinda Lynch MD Interpreting Provider: Cinda Lynch MD Consult Discharge Plan - Plan Referrals: Amy Ryan MD [Primary Care Provider] -
[2016-08-09] MEDS: *HR* Heparin 5,000 UNIT/ML VIAL SQ SCH (17:25)
[2016-08-09] MEDS ORDERED: Insulin LISPRO 300 UNITS/3 ML VIAL SQ SCH (21:00)
[2016-08-09] MEDS: Insulin DETEMIR 100 UNIT/ML X5UNITS SQ SCH (21:53)
[2016-08-10] MEDS: *HR* HYDROcodone/Acet 5/325 mg TABLET PO PRN ×2 (03:55→08:15)
[2016-08-10 04:28] LABS: Basophils % 0.3 %; Hematocrit 28.6 % (35.3-44.9); Immature Granulocytes % 0.8 % (0-4); Lymphocytes # 0.5 K/mcL (0.6-4.6); Lymphocytes % 6.6 %; Mean Corpuscular HGB Conc 31.5 g/dL (31.6-35.5); Mean Corpuscular Hemoglobin 27.7 pg (28.0-33.3); Mean Platelet Volume 11.3 fL (9.4-12.4); Monocytes # 0.2 K/mcL (0.0-1.3); Monocytes % 3.2 %; Neutrophils # 6.4 K/mcL (1.6-8.9); Platelet Count 294 K/mcL (140-400); Red Blood Count 3.25 M/mcL (3.82-4.97); Red Cell Distribution Width 15.5 % (11.5-14.5); Segmented Neutrophils % 89.1 %
[2016-08-10 04:58] LABS: Calcium 8.5 mg/dL (8.6-10.8); Potassium 5.3 mEq/L (3.5-4.5)
[2016-08-10] MEDS: Piperacillin/Tazobactam 3.375 GM in D5% in Water (Mini-Bag+) 100 ML IVPB SCH ×2 (05:49→17:32)
[2016-08-10] MEDS: *HR* Heparin 5,000 UNIT/ML VIAL SQ SCH ×2 (08:07→20:43)
[2016-08-10] MEDS: Furosemide 40 MG TABLET PO SCH (08:07)
[2016-08-10] MEDS: Aspirin Enteric Coated 81 MG Tablet PO SCH (08:07)
[2016-08-10] MEDS: Pregabalin 75 MG CAPSULE PO SCH ×3 (08:08→20:41)
[2016-08-10] MEDS: Magnesium Oxide 400 MG TABLET PO SCH (08:08)
[2016-08-10] MEDS: Folic Acid 1 MG TABLET PO SCH (08:08)
[2016-08-10] MEDS: (Levocetirizine Dihydrochloride [Xyzal] 5 MG) PO SCH (08:09)
[2016-08-10] MEDS: Insulin LISPRO 300 UNITS/3 ML VIAL SQ SCH ×6 (08:28→17:31)
[2016-08-10] MEDS: Insulin DETEMIR 100 UNIT/ML X5UNITS SQ SCH ×2 (08:29→20:40)
[2016-08-10] MEDS: Vancomycin 1,750 MG in D5% in Water 500 ML IVPB SCH (10:01)
[2016-08-10] MEDS: Nystatin POWDER 30 GM BOTTLE TP SCH ×2 (10:01→20:44)
[2016-08-10] MEDS: Ipratropium/Albuterol Neb 3 ML IH SCH ×3 (11:12→22:54)
--- NOTE | 2016-08-10 14:09 | Internal Med Progress Note ---
Date of Encounter: 08/10/16 Time of Encounter: 09:00 - Assessment and plan (1) Cellulitis Current Visit: Yes Status: Acute Assessment and plan: Patient has right arm pain, swelling, with discharge. Consider cellulitis. We will continue vancomycin and Zosyn. Consult orthopedics. Patient is at high risk because she is on vancomycin, which need close monitoring. Qualifiers: Site of cellulitis: extremity Site of cellulitis of extremity: upper extremity Laterality: right Qualified Code(s): L03.113 - Cellulitis of right upper limb (2) CKD (chronic kidney disease) Current Visit: Yes Status: Acute Assessment and plan: Patient has CKD, possibly due to diabetes. High potassium and low bicarbonate, with add sodium bicarbonate pills by mouth. Qualifiers: Chronic kidney disease stage: stage 3 (moderate) Qualified Code(s): N18.3 - Chronic kidney disease, stage 3 (moderate) (3) Hyperkalemia Current Visit: Yes Status: Acute Assessment and plan: Improved after Kayexalate. But still high level, will add bicarbonate pills. (4) CHF (congestive heart failure) Current Visit: Yes Status: Chronic Assessment and plan: Old echo Reviewed (08/2015), LVEF 65%, moderate diastolic dysfunction. Continue Lasix by mouth. Qualifiers: Congestive heart failure type: diastolic Congestive heart failure chronicity: chronic Qualified Code(s): I50.32 - Chronic diastolic (congestive ) heart failure (5) COPD (chronic obstructive pulmonary disease) Current Visit: Yes Status: Chronic Assessment and plan: Stable. Continue nebulizer treatment Qualifiers: COPD type: emphysema Emphysema type: unspecified Qualified Code(s): J43.9 - Emphysema, unspecified (6) Diabetes mellitus Current Visit: Yes Status: Chronic Assessment and plan: Patient takes Lantus 70 units qd previously. We will place her on Levemir 30 units twice a day with prandial insulin and sliding scale. Follow-up glucose level. Qualifiers: Diabetes mellitus type: type 2 Diabetes mellitus complication status: with neurologic complications Diabetes mellitus complication detail: with unspecified neuropathy Diabetes mellitus snf insulin use: with snf use Qualified Code(s): E11.40 - Type 2 diabetes mellitus with diabetic neuropathy, unspecified; Z79.4 - custodial (current) use of insulin (7) DVT prophylaxis Current Visit: Yes Status: Acute Assessment and plan: Heparin subcutaneously. - Subjective Interval history: Patient is a 75-year-old female admitted for right arm pain and swelling. Her past medical history is significant for CHF, COPD, diabetes, hypertension. Patient was seen and examined. She complained of pain on the right arm. There is self drainage of right arm wound. The right arm is not tensive. Right radial pulse is good. Patient is more awake and alert, no fever in the last 24 hours, vital signs stable. Her WBC is not high. Orthopedic was consulted. Will continue vancomycin and Zosyn treatment. Closely monitor patient. - Constitutional Vitals: Temp Pulse Resp BP Pulse Ox 98.9 F 76 18 104/68 96 08/10/16 10:18 08/10/16 10:18 08/10/16 11:12 08/10/16 10:18 08/10/16 11:12 General appearance: Present: A&O X 3, obese, answers questions appropriately - Head Head exam: Present: atraumatic, normocephalic - Eye Eye exam: Present: PERRL, conjuntiva pink, sclera anicteric Pupils: Present: PERRL - Neck Neck exam general surgery: Present: supple, trachea midline. Absent: lymphadenopathy - Respiratory Respiratory exam: Present: CTAB. Absent: accessory muscle use, rales, rhonchi, wheezes - Cardiovascular Cardiovascular exam: Present: RRR, +S1, +S2. Absent: diastolic murmur, gallop, rubs, systolic murmur - GI/Abdominal GI/Abdominal exam: Present: normal bowel sounds, soft, no peritoneal signs. Absent: distended, tenderness - Extremities Exam Extremities exam: Present: warm, radial pulses palpable and symetrical. Absent : calf tenderness, cyanotic, pedal edema Additional comments: Right arm is swelling, tenderness, skin is warm with discharge from wound. - Neurological Exam Neurological exam: Present: CN II-XII intact, oriented X3, no focal deficits. Absent: pronater drift, facial droop, speech deficit - Skin Skin exam: Present: dry, intact Internal Medicine: Result - Labs CBC & Chem 7: 08/10/16 03:49 08/10/16 03:49 Labs: Short CBC 08/10/16 Range/Units 03:49 WBC 7.2 (4.3-11.1) K/mcL Hgb 9.0 L (11.5-15.4) g/dL Hct 28.6 L (35.3-44.9) % Plt Count 294 (140-400) K/mcL Neutrophils # 6.4 (1.6-8.9) K/mcL BMP 08/10/16 03:49 Sodium 135 L Potassium 5.3 H Chloride 102 Carbon Dioxide 17 L BUN 36 H Creatinine 1.54 H Glucose 214 H Calcium 8.5 L - ABG Interpretation ABG results: PT/INR, D-dimer PT 12.1 Seconds (9.4-12.1) 08/08/16 19:30 Consult Discharge Plan - Plan Referrals: Amy Ryan MD [Primary Care Provider] -
[2016-08-10] MEDS ORDERED: Insulin LISPRO 300 UNITS/3 ML VIAL SQ SCH (14:15)
--- NOTE | 2016-08-10 18:33 | Orthopedics Progress Note ---
Date of Encounter: 08/10/16 Time of Encounter: 18:30 Subjective Principal diagnosis: s/p ORIF humerus, drainage Interval history: The patient is a 75-year-old status post open reduction and internal fixation of the right humerus 2 weeks ago. He is admitted with erythema and drainage and mild fever by the hospitalist service. She is currently on antibiotics per the primary service. Afebrile vitals signs are stable. Incision is well approximated. However, there is a mild amount of serosanguineous drainage. There is erythema about the wound. There is erythema noted in the contralateral upper extremity and lower extremities however. There is no significant pain with passive range of motion of the elbow. Neurovascularly intact with regard to bilateral upper extremities. Assessment : Probable superficial wound infection/cellulitis. Plan mobilize ,continue analgesics, consider irrigation and debridement per Dr. Stafford. Objective Vital signs: Vital Signs Temp Pulse Resp BP Pulse Ox 08/10/16 16:46 18 95 08/10/16 15:16 97.5 F L 79 18 121/50 97 08/10/16 11:12 18 96 08/10/16 10:18 98.9 F 76 18 104/68 96 08/10/16 06:49 98 F 76 16 117/68 95 08/10/16 00:10 97.9 F 72 18 114/62 94 L 08/09/16 20:36 98.5 F 77 18 112/64 97 Intake and Output 08/10/16 08/10/16 08/10/16 07:59 15:59 23:59 Intake Total 100 / 100 1000 / 1000 Output Total 525 / 525 1350 / 1350 Balance -425 / -425 -350 / -350 Intake: IV Fluids 100 / 100 600 / 600 Zosyn 3.375 GM In 100 / 100 100 / 100 Dextrose 5% (Minibag+) 100 ML 100 ML @ 25 mls/hr IVPB Q12HR [facility] Rx#: [id number] Vancocin 1,750 MG In 500 / 500 Dextrose 5% 500 ML @ 333. 34 mls/hr IVPB Q24H [facility] Rx#:[id number] Oral 400 / 400 Output: Urine 350 / 350 Catheter 525 / 525 1000 / 1000 Other: Meal Lunch Percent of Meal Consumed 80% Blood Glucose* 181 - Labs CBC & BMP: 08/10/16 03:49 08/10/16 03:49 Labs: Abnormal lab results RBC 3.25 M/mcL (3.82-4.97) L 08/10/16 03:49 Hgb 9.0 g/dL (11.5-15.4) L 08/10/16 03:49 Hct 28.6 % (35.3-44.9) L 08/10/16 03:49 MCH 27.7 pg (28.0-33.3) L 08/10/16 03:49 MCHC 31.5 g/dL (31.6-35.5) L 08/10/16 03:49 RDW 15.5 % (11.5-14.5) H 08/10/16 03:49 Lymphocytes # 0.5 K/mcL (0.6-4.6) L 08/10/16 03:49 Sodium 135 mEq/L (136-145) L 08/10/16 03:49 Potassium 5.3 mEq/L (3.5-4.5) H 08/10/16 03:49 Carbon Dioxide 17 mEq/L (19-29) L 08/10/16 03:49 BUN 36 mg/dL (7-20) H 08/10/16 03:49 Creatinine 1.54 mg/dL (0.57-1.11) H 08/10/16 03:49 Est GFR ( Amer) 40 (> 60) L 08/10/16 03:49 Est GFR (Non-Af Amer) 33 (> 60) L 08/10/16 03:49 Glucose 214 mg/dL (70-99) H 08/10/16 03:49 POC Glucose 245 (58-89) H 08/10/16 11:17 Hemoglobin A1c 6.2 % (-5.6) H 08/08/16 22:58 Calcium 8.5 mg/dL (8.6-10.8) L 08/10/16 03:49 C-Reactive Protein 31 mg/L (Less than 5) H 08/08/16 19:30 B-Natriuretic Peptide 140 pg/mL (0-100) H 08/08/16 19:41 Albumin 2.8 g/dL (3.5-5.0) L 08/08/16 19:30 Albumin/Globulin Ratio 0.9 (1.1-2.2) L 08/08/16 19:30 Consult Discharge Plan - Plan Referrals: Amy Ryan MD [Primary Care Provider] -
[2016-08-11] MEDS: *HR* HYDROcodone/Acet 5/325 mg TABLET PO PRN ×2 (02:44→12:46)
[2016-08-11 03:25] LABS: Basophils % 0.6 %; Eosinophils # 0.3 K/mcL (0.0-0.6); Eosinophils % 4.3 %; Hematocrit 25.9 % (35.3-44.9); Hemoglobin 8.3 g/dL (11.5-15.4); Immature Granulocytes % 0.8 % (0-4); Lymphocytes # 0.4 K/mcL (0.6-4.6); Lymphocytes % 6.5 %; Mean Corpuscular Hemoglobin 28.5 pg (28.0-33.3); Mean Platelet Volume 10.2 fL (9.4-12.4); Monocytes # 0.5 K/mcL (0.0-1.3); Monocytes % 7.2 %; Neutrophils # 5.3 K/mcL (1.6-8.9); Platelet Count 309 K/mcL (140-400); Red Blood Count 2.91 M/mcL (3.82-4.97); Red Cell Distribution Width 15.7 % (11.5-14.5); Segmented Neutrophils % 80.6 %
[2016-08-11 03:41] LABS: Calcium 8.4 mg/dL (8.6-10.8); Potassium 4.1 mEq/L (3.5-4.5)
[2016-08-11] MEDS: Ipratropium/Albuterol Neb 3 ML IH SCH ×4 (04:27→21:21)
[2016-08-11] MEDS: Piperacillin/Tazobactam 3.375 GM in D5% in Water (Mini-Bag+) 100 ML IVPB SCH ×2 (05:51→23:35)
[2016-08-11] MEDS: *HR* Heparin 5,000 UNIT/ML VIAL SQ SCH (09:11)
[2016-08-11] MEDS: Insulin LISPRO 300 UNITS/3 ML VIAL SQ SCH ×5 (09:12→21:21)
[2016-08-11] MEDS: Furosemide 40 MG TABLET PO SCH (09:12)
[2016-08-11] MEDS: Pregabalin 75 MG CAPSULE PO SCH ×3 (09:13→21:22)
[2016-08-11] MEDS: Aspirin Enteric Coated 81 MG Tablet PO SCH (09:13)
[2016-08-11] MEDS: (Levocetirizine Dihydrochloride [Xyzal] 5 MG) PO SCH (09:14)
[2016-08-11] MEDS: Nystatin POWDER 30 GM BOTTLE TP SCH ×2 (09:14→21:23)
[2016-08-11] MEDS: Magnesium Oxide 400 MG TABLET PO SCH (09:14)
[2016-08-11] MEDS: Folic Acid 1 MG TABLET PO SCH (09:14)
--- NOTE | 2016-08-11 09:27 | Electrocardiograph Report ---
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
[2016-08-11] MEDS: Insulin DETEMIR 100 UNIT/ML X5UNITS SQ SCH ×2 (10:35→21:25)
[2016-08-11] MEDS: Vancomycin 1,750 MG in D5% in Water 500 ML IVPB SCH (10:36)
--- NOTE | 2016-08-11 12:39 | Orthopedics Progress Note ---
Date of Encounter: 08/11/16 Time of Encounter: 11:45 - Assessment and Plan (1) Cellulitis Current Visit: Yes Status: Acute On exam today, moderate drainage on dressing but no active drainage. Removed 6 joseph to see if more drainage could be expressed, however patient could not tolerate any more joseph be removed and requested me to stop. There was minimal serous drainage after palpation around the area. Reapplied dressings. Since there has been little improvement to the swelling and erythema after 3 days of IV ABX, will plan for right elbow irrigation and debridement of the incision today. Discussed procedure and r/b/a and family POA signed consent. Consent placed in chart. Continue NPO until after surgery. Continue pain control per hospitalist. Keep arm elevated and work on ROM of hand/wrist. Qualifiers: Site of cellulitis: extremity Site of cellulitis of extremity: upper extremity Laterality: right Qualified Code(s): L03.113 - Cellulitis of right upper limb Subjective Principal diagnosis: POW#2 s/p distal humerus ORIF, cellulitis Interval history: Patient states she is in a lot of pain that has not improved since being here. States she feels "awful". She thinks the swelling has stayed the same despite keeping elevated on pillow and trying to do hand exercises.States it is still draining but she doesnt remember when the dressings were last changed. Per nurse , they were changed last night. Objective Vital signs: Vital Signs Temp Pulse Resp BP Pulse Ox 08/11/16 11:47 97.9 F 77 16 123/68 98 08/11/16 07:21 98.1 F 81 16 120/62 98 08/11/16 04:27 18 96 08/11/16 04:26 98.5 F 85 16 115/53 95 08/10/16 23:35 97.8 F 97 16 123/63 98 08/10/16 22:54 16 94 L 08/10/16 19:40 97.4 F L 99 16 130/65 96 08/10/16 16:46 18 95 08/10/16 15:16 97.5 F L 79 18 121/50 97 Intake and Output 08/10/16 08/11/16 08/11/16 23:59 07:59 15:59 Intake Total 100 / 100 Output Total 400 / 400 300 / 300 Balance -400 / -400 -200 / -200 Intake: IV Fluids 100 / 100 Zosyn 3.375 GM In 100 / 100 Dextrose 5% (Minibag+) 100 ML 100 ML @ 25 mls/hr IVPB Q12HR [facility] Rx#: [id number] Output: Catheter 400 / 400 300 / 300 Other: Stool Size Large Stool Consistency formed Stool Color Brown # Bowel Movements 1 Blood Glucose* 166 121 Incision: red ([place] intact on right posterior elbow with moderate erythema and swelling. minimal serous drainage from proximal staple site, limited ROM of elbow and hand with moderate swelling to hand, brisk cap refill, NV intact) - Labs CBC & BMP: 08/11/16 03:12 08/11/16 03:12 Labs: Abnormal lab results RBC 2.91 M/mcL (3.82-4.97) L 08/11/16 03:12 Hgb 8.3 g/dL (11.5-15.4) L 08/11/16 03:12 Hct 25.9 % (35.3-44.9) L 08/11/16 03:12 RDW 15.7 % (11.5-14.5) H 08/11/16 03:12 Lymphocytes # 0.4 K/mcL (0.6-4.6) L 08/11/16 03:12 ESR 55 mm/hr (0-15) H 08/11/16 03:12 BUN 34 mg/dL (7-20) H 08/11/16 03:12 Est GFR ( Amer) 58 (> 60) L 08/11/16 03:12 Est GFR (Non-Af Amer) 48 (> 60) L 08/11/16 03:12 BUN/Creatinine Ratio 31 (6-26) H 08/11/16 03:12 Glucose 173 mg/dL (70-99) H 08/11/16 03:12 POC Glucose 181 (58-89) H 08/10/16 20:38 Hemoglobin A1c 6.2 % (-5.6) H 08/08/16 22:58 Calcium 8.4 mg/dL (8.6-10.8) L 08/11/16 03:12 C-Reactive Protein 42 mg/L (Less than 5) H 08/11/16 03:12 B-Natriuretic Peptide 140 pg/mL (0-100) H 08/08/16 19:41 Albumin 2.8 g/dL (3.5-5.0) L 08/08/16 19:30 Albumin/Globulin Ratio 0.9 (1.1-2.2) L 08/08/16 19:30 Consult Discharge Plan - Plan Referrals: Amy Ryan MD [Primary Care Provider] -
[2016-08-11] MEDS ORDERED: Piperacillin/Tazobactam 3.375 GM in D5% in Water (Mini-Bag+) 100 ML IVPB SCH (16:00)
--- NOTE | 2016-08-11 16:42 | Anesthesia Evaluation PreOp ---
Date of Encounter: 08/11/16 Time of Encounter: 16:40 - Past History Planned Operation: I&D r elbow Cardiac History: CHF (by hx, pt admitted for SOB/productive cough....cough has resolved. she doesn't "know if breathing has improved" however no active dyspnea is apparent. pt is on 2L NC), HTN, Hyperlipidemia, Other (echo 08/04: ef 65, nl rv, rvsp 41, dilated r atrium) Pulmonary History: COPD, Other (admit for fever/prod cough, started on lasix, resolved cough) [employer] History: Other (depression) Other Medical History: Renal (domi, resolved), Diabetes Type II, GERD Anesthesia History: No Prior Anesthetic Complications, Past Anesthesia (orif r humerus) Alcohol Use: none Drug use: none Medications and Allergies Aspirin [Adult Low Dose Aspirin EC] 81 mg PO DAILY 08/22/15 [History] Enalapril Maleate [Vasotec] 10 mg PO BID 08/22/15 [History] Insulin Glargine,Hum.rec.anlog [Lantus Solostar] 110 unit SQ QAM 08/22/15 [ History] Pioglitazone HCl [Actos] 30 mg PO DAILY 08/22/15 [History] Pregabalin [Lyrica] 150 mg PO TID 08/22/15 [History] Simvastatin [Zocor] 20 mg PO DAILY 08/22/15 [History] Ferrous Sulfate 325 mg PO BID #60 tablet 08/28/15 [Rx] Folic Acid 1 mg PO DAILY #90 tablet 09/24/15 [Rx] Cyanocobalamin (B-12) [Vitamin B12] 1 ml IM QMONTH 07/24/16 [History] Levocetirizine Dihydrochloride [Xyzal] 5 mg PO DAILY 07/24/16 [History] Nystatin POWDER [Nystop] 1 appl TP BID 07/24/16 [History] Docusate [Colace] 100 mg PO BID #40 capsule 07/28/16 [Rx] Magnesium Oxide [Mag-Ox] 400 mg PO DAILY #20 tablet 07/28/16 [Rx] Sennosides [Senna] 8.6 mg PO BID #40 tablet 07/28/16 [Rx] Furosemide [Lasix] 40 mg PO QAM 08/08/16 [History] Omeprazole [PriLOSEC] 40 mg PO DAILY 08/08/16 [History] Oxycodone HCl/Acetaminophen [Percocet 7.5-325 mg Tablet] 1 tab PO QID PRN [History] Allergies No Known Allergies Allergy (Verified 01/10/16 12:42) - Meds/Allergy Pre-op Review Medications Reviewed: Yes Allergies Reviewed: Yes Beta Blockers on Current Med List: No Anesthesia Results - Labs 08/11/16 03:12 08/11/16 03:12 - Imaging EKG: report reviewed (sr/lad) Anesthesia Exam O2 Sat O2 Sat by Pulse Oximetry 96 O2 Sat by Pulse Oximetry 98 O2 Sat by Pulse Oximetry 98 O2 Sat by Pulse Oximetry 96 O2 Sat by Pulse Oximetry 95 O2 Sat by Pulse Oximetry 98 O2 Sat by Pulse Oximetry 94 O2 Sat by Pulse Oximetry 96 O2 Sat by Pulse Oximetry 95 Vital Signs Temp Pulse Resp BP Pulse Ox 100.8 F H 85 20 124/58 95 08/08/16 18:57 08/08/16 18:57 08/08/16 18:57 08/08/16 18:57 08/08/16 18:57 Blood glucose: 121 (at 1625) Height: 1.6 Weight: 120 NPO (# of Hours): >8 - HEENT Pupil (Motor): Pupils equal, EOMI Mallampati: II Teeth: Edentulous Oral Opening: Less than or equal to 3 - [employer] LOC: Oriented [employer] Motor: Normal RUE, Normal LUE, Normal RLE, Normal LLE, Normal Face [employer] Sensory: Normal: RUE, LUE, RLE, LLE, Face - Cardiac Rhythm: Regular Murmur: None - Pulmonary Breath Sounds: bilateral Clear (end exp wheeze R>>L) Respiratory Effort: Symmetrical Anesthesia Assess/Plan ASA Score: 3 (dm, mo) Modified [place] Scale for Level of Consciousness: Cooperative, oriented, and tranquil Anesthetic Plan: General Monitoring Plan: Standard Monitors Recovery Plan: PACU
[2016-08-11] MEDS ORDERED: 0.9 % Sodium Chloride 1,000 ML IVC SCH ×2 (17:00→20:37)
--- NOTE | 2016-08-11 17:17 | Internal Med Progress Note ---
Date of Encounter: 08/11/16 Time of Encounter: 10:00 - Assessment and plan (1) Cellulitis Current Visit: Yes Status: Acute Assessment and plan: Patient has right arm pain, swelling, with discharge. Consider cellulitis. We will continue vancomycin and Zosyn. orthopedics on case and plan for debridement. Patient is at high risk because she is on vancomycin, which need close monitoring. Qualifiers: Site of cellulitis: extremity Site of cellulitis of extremity: upper extremity Laterality: right Qualified Code(s): L03.113 - Cellulitis of right upper limb (2) CKD (chronic kidney disease) Current Visit: Yes Status: Acute Assessment and plan: Patient has CKD, possibly due to diabetes. High potassium and low bicarbonate, with add sodium bicarbonate pills by mouth. Improvement with renal function. We will resume her regular Lasix dose. Qualifiers: Chronic kidney disease stage: stage 3 (moderate) Qualified Code(s): N18.3 - Chronic kidney disease, stage 3 (moderate) (3) Hyperkalemia Current Visit: Yes Status: Acute Assessment and plan: Improved after treatment. (4) CHF (congestive heart failure) Current Visit: Yes Status: Chronic Assessment and plan: Old echo Reviewed (08/2015), LVEF 65%, moderate diastolic dysfunction. Continue Lasix by mouth, resume regular dose because of improved renal function. Qualifiers: Congestive heart failure type: diastolic Congestive heart failure chronicity: chronic Qualified Code(s): I50.32 - Chronic diastolic (congestive ) heart failure (5) COPD (chronic obstructive pulmonary disease) Current Visit: Yes Status: Chronic Assessment and plan: Stable. Continue nebulizer treatment Qualifiers: COPD type: emphysema Emphysema type: unspecified Qualified Code(s): J43.9 - Emphysema, unspecified (6) Diabetes mellitus Current Visit: Yes Status: Chronic Assessment and plan: Patient takes Lantus 70 units qd previously. We will place her on Levemir 30 units twice a day with prandial insulin and sliding scale. Follow-up glucose level. Glucose level is stable now. 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 - Time Spent With Patient Greater than 35 minutes - Subjective Interval history: Patient is a 75-year-old female admitted for right arm pain and swelling. Her past medical history is significant for CHF, COPD, diabetes, hypertension. Patient was seen and examined. She complained of pain on the right arm. There is self drainage of right arm wound. The right arm is not tensive. Right radial pulse is good. Patient is more awake and alert, no fever in the last 24 hours, vital signs stable. Her WBC is not high. Orthopedic was consulted. Plan for debridement today. Will continue vancomycin and Zosyn treatment. Closely monitor patient. - Constitutional Vitals: Temp Pulse Resp BP Pulse Ox 98.3 F 78 16 104/54 96 08/11/16 15:07 08/11/16 15:07 08/11/16 15:07 08/11/16 15:07 08/11/16 15:07 General appearance: Present: A&O X 3, obese, answers questions appropriately - Head Head exam: Present: atraumatic, normocephalic - Eye Eye exam: Present: PERRL, conjuntiva pink, sclera anicteric Pupils: Present: PERRL - Neck Neck exam general surgery: Present: supple, trachea midline. Absent: lymphadenopathy - Respiratory Respiratory exam: Present: CTAB. Absent: accessory muscle use, rales, rhonchi, wheezes - Cardiovascular Cardiovascular exam: Present: RRR, +S1, +S2. Absent: diastolic murmur, gallop, rubs, systolic murmur - GI/Abdominal GI/Abdominal exam: Present: normal bowel sounds, soft, no peritoneal signs. Absent: distended, tenderness - Extremities Exam Extremities exam: Present: warm, radial pulses palpable and symetrical. Absent : calf tenderness, cyanotic, pedal edema Additional comments: Right arm is swelling, tender, warm, with discharge - Neurological Exam Neurological exam: Present: CN II-XII intact, oriented X3, no focal deficits. Absent: pronater drift, facial droop, speech deficit - Skin Skin exam: Present: dry, intact Internal Medicine: Result - Labs CBC & Chem 7: 08/11/16 03:12 08/11/16 03:12 Labs: Short CBC 08/11/16 Range/Units 03:12 WBC 6.5 (4.3-11.1) K/mcL Hgb 8.3 L (11.5-15.4) g/dL Hct 25.9 L (35.3-44.9) % Plt Count 309 (140-400) K/mcL Neutrophils # 5.3 (1.6-8.9) K/mcL BMP 08/11/16 03:12 Sodium 138 Potassium 4.1 D Chloride 101 Carbon Dioxide 26 BUN 34 H Creatinine 1.11 Glucose 173 H Calcium 8.4 L - ABG Interpretation ABG results: PT/INR, D-dimer PT 12.1 Seconds (9.4-12.1) 08/08/16 19:30 Consult Discharge Plan - Plan Referrals: Amy Ryan MD [Primary Care Provider] -
[2016-08-11] MEDS ORDERED: *HR* Propofol 200 MG/20 ML VIAL IVP ONE (17:21)
[2016-08-11] MEDS ORDERED: Lidocaine -MPF 2% 2 ML VIAL ONE (17:21)
[2016-08-11] MEDS ORDERED: *HR* Succinylcholine 200 MG/10 ML VIAL IVP ONE (17:21)
[2016-08-11] MEDS ORDERED: Dexamethasone 4 MG/ML VIAL ONE (17:21)
[2016-08-11] MEDS ORDERED: *HR* Midazolam HCl 2 MG/2 ML VIAL ONE (17:21)
[2016-08-11] MEDS ORDERED: *HR* FentaNYL (PF) 100 MCG/2 ML VIAL ONE ×2 (17:21→18:10)
[2016-08-11] MEDS ORDERED: Lidocaine -MPF 4% 5 ML AMPUL ONE (17:21)
[2016-08-11] MEDS ORDERED: Ondansetron 4 MG/2 ML VIAL ONE (17:21)
[2016-08-11] MEDS ORDERED: Furosemide 40 MG TABLET PO SCH (17:22)
[2016-08-11] MEDS ORDERED: *HR* Promethazine 25 MG/ML VIAL IVP PRN (18:21)
--- NOTE | 2016-08-11 18:52 | Operative Note ---
Date of procedure: 08/11/16 Pre-op diagnosis: Right arm/elbow postoperative wound infection Post-op diagnosis: other (Right postoperative wound hematoma) Procedure: Right arm incision of postoperative wound with drainage of hematoma Anesthesia: SUKHA Surgeon: Ignacio Stafford Estimated blood loss (cc): 100 Specimen: Cultures Condition: stable Disposition: PACU Procedure in Detail: Indications: Patient 75 year old [id number] woman who is now postoperative week #2 status post a right distal humerus ORIF. The patient was sent in to the ER from her fdc with apparent cellulitis of postoperative wound with drainage. Despite 3 days of IV antibiotics, the wound continued to drain serous fluid, and with erythema. The patient's white blood count decreased, however her ESR and CRP increased. She was indicated for a washout of her wound. Procedure: The patient was on IV antibiotics from floor. She was brought to operating room and placed or table in supine position where she underwent general anesthesia. The patient's skin joseph were removed. There was an area at the proximal end of the wound was serous drainage, but slightly soupy and was not fully healed. The right upper extremity was prepped and draped in usual fashion. A timeout was performed. A hemostat was used to open the wound which was draining. No purulence was encountered, only hematoma. Cultures were sent for Gram stain, aerobic and anaerobic. The wound was extended, making an approximately 15 cm long. The wound was opened up over down to the triceps fascia. Old Vicryl sutures were removed with hemostat. The wound was copiously irrigated with a pulse lavage. I also explored the medial side where there was some ecchymosis, but no fluid was encountered. A large Hemovac drain was then placed from the proximal end of the wound running down distally over the triceps fascia and exiting at the lateral aspect of the elbow. There was a constant bloody ooze since the patient was on aspirin and heparin. I used Bovie electrocautery along with Damian to control hemostasis. The deep fat layer was loosely closed with 0 Vicryl sutures, 2-0 Vicryl subcutaneous daily, followed by 2-0 nylon vertical mattress and simple sutures for the skin. Sterile dressings applied, Hemovac was connected. The patient was extubated and taken to recovery room stable condition. She will continue IV antibiotics and we will check the culture results.
[2016-08-11] MEDS: *HR* HYDROmorphone (PF) 1 MG/ML SYRINGE IVP PRN ×4 (19:14→19:45)
--- NOTE | 2016-08-11 20:06 | Anesthesia Evaluation Post Op ---
Date of Encounter: 08/11/16 Time of Encounter: 20:05 - Vital Signs Vital Signs: Last Vital Signs Temp 97.2 F L 08/11/16 19:36 Pulse 63 08/11/16 19:56 Resp 18 08/11/16 19:56 BP 129/60 08/11/16 19:56 Pulse Ox 98 08/11/16 19:56 - Lungs Lungs: Clear Ascult./Percussion - Airway Airway: Non-obstructed - Cardiovascular Regular Rate - Mental Status Mental Status: Alert & Oriented, Answers Appropriately - Pain Pain Scale: 5 - Nausea Vomiting Nausea Vomiting: Not Present - Hydration Hydration: Ice chips, Whittaker catheter - Discharge PostOp Status: Transfer Patient to floor
[2016-08-11] MEDS ORDERED: *HR* Dextrose 50 % in Water (Syg) 50 ML SYRINGE IVP PRN (20:37)
[2016-08-11] MEDS ORDERED: MOM Conc 10 ML UD.LIQ PO PRN (20:37)
[2016-08-11] MEDS ORDERED: Dextrose Gel 15 GM PO PRN ×2 (20:37)
[2016-08-11] MEDS ORDERED: Ondansetron 4 MG/2 ML VIAL IVP PRN (20:37)
[2016-08-11] MEDS ORDERED: D5% in Water 1,000 ML IV PRN (20:37)
[2016-08-11] MEDS ORDERED: Acetaminophen 325 MG TABLET PO PRN (20:37)
[2016-08-11] MEDS ORDERED: Ipratropium/Albuterol Neb 3 ML IH PRN (20:37)
[2016-08-11] MEDS ORDERED: Cyanocobalamin (B-12) 1,000 MCG/ML VIAL IM SCH (20:37)
[2016-08-11] MEDS ORDERED: Naloxone 0.4 MG/ML INJ IVP PRN (20:37)
[2016-08-11] MEDS ORDERED: Albuterol 2.5 MG/3 ML NEBULIZER IH PRN (20:37)
[2016-08-11] MEDS: *HR* OxyCODONE/APAP 5/325 TABLET PO PRN (22:12)
[2016-08-12] MEDS ORDERED: *HR* Morphine 2 MG/ML SYRINGE IVP PRN (00:40)
[2016-08-12] MEDS: Ipratropium/Albuterol Neb 3 ML IH SCH ×4 (04:54→22:36)
[2016-08-12 06:00] LABS: Basophils % 0.7 %; Eosinophils % 0.2 %; Hematocrit 25.7 % (35.3-44.9); Hemoglobin 7.9 g/dL (11.5-15.4); Immature Granulocytes % 1.1 % (0-4); Lymphocytes # 0.4 K/mcL (0.6-4.6); Lymphocytes % 8.9 %; Mean Corpuscular HGB Conc 30.7 g/dL (31.6-35.5); Mean Corpuscular Volume 91.1 fL (83.0-100.0); Mean Platelet Volume 11.3 fL (9.4-12.4); Monocytes # 0.4 K/mcL (0.0-1.3); Monocytes % 8.2 %; Neutrophils # 3.6 K/mcL (1.6-8.9); Platelet Count 296 K/mcL (140-400); Red Blood Count 2.82 M/mcL (3.82-4.97); Red Cell Distribution Width 15.4 % (11.5-14.5); Segmented Neutrophils % 80.9 %
[2016-08-12] MEDS: Piperacillin/Tazobactam 3.375 GM in D5% in Water (Mini-Bag+) 100 ML IVPB SCH ×2 (07:52→15:51)
[2016-08-12] MEDS: Aspirin Enteric Coated 81 MG Tablet PO SCH (07:54)
[2016-08-12] MEDS: Folic Acid 1 MG TABLET PO SCH (07:55)
[2016-08-12] MEDS: Magnesium Oxide 400 MG TABLET PO SCH (07:55)
[2016-08-12] MEDS: Furosemide 40 MG TABLET PO SCH (07:56)
[2016-08-12] MEDS: Pregabalin 75 MG CAPSULE PO SCH ×3 (07:56→21:08)
[2016-08-12] MEDS: Patient Taking Own Medication 1 EACH PO SCH (07:56)
[2016-08-12] MEDS: Nystatin POWDER 30 GM BOTTLE TP SCH ×2 (07:57→21:10)
[2016-08-12] MEDS: Insulin LISPRO 300 UNITS/3 ML VIAL SQ SCH ×7 (07:57→21:10)
[2016-08-12] MEDS: *HR* Heparin 5,000 UNIT/ML VIAL SQ SCH ×2 (08:00→18:24)
[2016-08-12] MEDS: Insulin DETEMIR 100 UNIT/ML X5UNITS SQ SCH ×2 (09:58→21:10)
[2016-08-12] MEDS ORDERED: Vancomycin 1,750 MG in D5% in Water 500 ML IVPB SCH (10:00)
[2016-08-12] MEDS ORDERED: Lidocaine -MPF 1% 5 ML AMPUL INFILT ONE (10:59)
[2016-08-12] MEDS: Silvasorb 44.4 ML TUBE TP SCH (12:42)
[2016-08-12] MEDS: *HR* OxyCODONE/APAP 5/325 TABLET PO PRN (12:45)
--- NOTE | 2016-08-12 15:51 | Orthopedics Progress Note ---
Date of Encounter: 08/12/16 Time of Encounter: 15:00 - Assessment and Plan (1) Cellulitis Current Visit: Yes Status: Acute Dressings left intact. Will leave drain in 1 more day. Preliminary cx results show few G+ cocci. Pending final results. Continue IV abx per hospitalist. Continue pain control per hospitalist. Keep arm elevated and work on ROM of hand/wrist. Qualifiers: Site of cellulitis: extremity Site of cellulitis of extremity: upper extremity Laterality: right Qualified Code(s): L03.113 - Cellulitis of right upper limb Subjective Principal diagnosis: POW#2 s/p distal humerus ORIF, cellulitis Interval history: Patient feeling much better today. No events overnight. Has increased ROM of hand compared to yesterday. Drain still intact. Objective Vital signs: Vital Signs Temp Pulse Resp BP Pulse Ox 08/12/16 15:05 98.2 F 73 16 120/54 96 08/12/16 11:46 98.4 F 88 18 126/62 95 08/12/16 10:32 18 96 08/12/16 06:42 97.8 F 81 18 108/60 96 08/12/16 04:56 18 97 08/12/16 04:00 97.8 F 68 16 120/53 98 08/12/16 03:58 97.3 F L 83 17 130/65 98 08/11/16 23:44 97.5 F L 87 18 133/68 98 08/11/16 22:00 97.5 F L 85 16 136/69 98 08/11/16 21:30 97.7 F 70 18 132/69 08/11/16 21:22 18 98 08/11/16 21:14 98 08/11/16 21:03 97.7 F 69 16 126/67 98 08/11/16 20:35 97.5 F L 65 17 121/71 100 08/11/16 20:14 62 18 132/68 99 08/11/16 20:06 97.0 F L 60 18 136/61 98 08/11/16 19:56 63 18 129/60 98 08/11/16 19:46 59 18 134/58 97 08/11/16 19:36 97.2 F L 63 20 130/61 98 08/11/16 19:26 63 20 130/63 96 08/11/16 19:16 63 20 132/56 98 08/11/16 19:06 97.3 F L 74 20 126/70 96 Intake and Output 08/11/16 08/12/16 08/12/16 23:59 07:59 15:59 Intake Total 100 / 100 460 / 460 Output Total 420 / 420 770 / 770 875 / 875 Balance -420 / -420 -670 / -670 -415 / -415 Intake: IV Fluids 100 / 100 100 / 100 Zosyn 3.375 GM In 100 / 100 100 / 100 Dextrose 5% (Minibag+) 100 ML 100 ML @ 25 mls/hr IVPB Q8H [facility] Rx#: [id number] Oral 360 / 360 Output: Estimated Blood Loss 100 / 100 Urine Amount (Catheter) 150 / 150 Catheter 150 / 150 750 / 750 875 / 875 Wound Drainage 20 / Right Elbow 20 Other: Meal Breakfast Percent of Meal Consumed 95% Stool Size Large Stool Consistency soft formed Stool Color Brown # Bowel Movements 1 Blood Glucose* 108 226 175 Incision: clean and dry (dressings clean and intact. Drain tubing still full pulling pressure. Increased ROM of fingers, NV intact, brisk cap refill) - Labs CBC & BMP: 08/12/16 05:20 08/11/16 03:12 Labs: Abnormal lab results RBC 2.82 M/mcL (3.82-4.97) L 08/12/16 05:20 Hgb 7.9 g/dL (11.5-15.4) L 08/12/16 05:20 Hct 25.7 % (35.3-44.9) L 08/12/16 05:20 MCHC 30.7 g/dL (31.6-35.5) L 08/12/16 05:20 RDW 15.4 % (11.5-14.5) H 08/12/16 05:20 Lymphocytes # 0.4 K/mcL (0.6-4.6) L 08/12/16 05:20 ESR 55 mm/hr (0-15) H 08/11/16 03:12 BUN 34 mg/dL (7-20) H 08/11/16 03:12 Est GFR ( Amer) 58 (> 60) L 08/11/16 03:12 Est GFR (Non-Af Amer) 48 (> 60) L 08/11/16 03:12 BUN/Creatinine Ratio 31 (6-26) H 08/11/16 03:12 Glucose 173 mg/dL (70-99) H 08/11/16 03:12 POC Glucose 226 (58-89) H 08/12/16 07:12 Hemoglobin A1c 6.2 % (-5.6) H 08/08/16 22:58 Calcium 8.4 mg/dL (8.6-10.8) L 08/11/16 03:12 C-Reactive Protein 42 mg/L (Less than 5) H 08/11/16 03:12 B-Natriuretic Peptide 140 pg/mL (0-100) H 08/08/16 19:41 Albumin 2.8 g/dL (3.5-5.0) L 08/08/16 19:30 Albumin/Globulin Ratio 0.9 (1.1-2.2) L 08/08/16 19:30 Vancomycin Trough 24.9 mcg/mL (10-20) H* 08/12/16 09:20 - VTE Documentation of Mechanical Device: Intermittent pneumatic compression device Consult Discharge Plan - Plan Referrals: Amy Ryan MD [Primary Care Provider] -
--- NOTE | 2016-08-12 16:56 | Internal Med Progress Note ---
Date of Encounter: 08/12/16 Time of Encounter: 16:53 - Assessment and plan (1) LAUREN (acute kidney injury) Current Visit: Yes Status: Acute Assessment and plan: Improving, we will continue monitoring. (2) Cellulitis Current Visit: Yes Status: Acute Assessment and plan: Patient has right arm pain, swelling, with discharge. We will continue vancomycin and stop Zosyn in light of isolation of gram-positive cocci in culture preliminary result. Follow orthopedic surgery evaluation and recommendations.. Patient is at high risk because she is on vancomycin, which need close monitoring. Continue with drain as per orthopedic. Qualifiers: Site of cellulitis: extremity Site of cellulitis of extremity: upper extremity Laterality: right Qualified Code(s): L03.113 - Cellulitis of right upper limb (3) DVT prophylaxis Current Visit: No Status: Acute - Time Spent With Patient 25 - 35 minutes - Subjective Interval history: The patient was seen and examined on rounds. She is complaining of generalized pain. No fever. - Constitutional Vitals: Temp Pulse Resp BP Pulse Ox 98.2 F 73 16 120/54 96 08/12/16 15:05 08/12/16 15:05 08/12/16 15:05 08/12/16 15:05 08/12/16 15:05 General appearance: Present: A&O X 3, obese, answers questions appropriately - Head Head exam: Present: atraumatic, normocephalic - Eye Eye exam: Present: PERRL, conjuntiva pink, sclera anicteric Pupils: Present: PERRL - Neck Neck exam general surgery: Present: supple, trachea midline. Absent: lymphadenopathy - Respiratory Respiratory exam: Present: CTAB. Absent: accessory muscle use, rales, rhonchi, wheezes - Cardiovascular Cardiovascular exam: Present: RRR, +S1, +S2. Absent: diastolic murmur, gallop, rubs, systolic murmur - GI/Abdominal GI/Abdominal exam: Present: normal bowel sounds, soft, no peritoneal signs. Absent: distended, tenderness - Extremities Exam Extremities exam: Present: warm, radial pulses palpable and symetrical. Absent : calf tenderness, cyanotic, pedal edema - Neurological Exam Neurological exam: Present: CN II-XII intact, oriented X3, no focal deficits. Absent: pronater drift, facial droop, speech deficit - Skin Skin exam: Present: dry, intact Internal Medicine: Result - Labs CBC & Chem 7: 08/12/16 05:20 08/11/16 03:12 Labs: Short CBC 08/12/16 Range/Units 05:20 WBC 4.4 (4.3-11.1) K/mcL Hgb 7.9 L (11.5-15.4) g/dL Hct 25.7 L (35.3-44.9) % Plt Count 296 (140-400) K/mcL Neutrophils # 3.6 (1.6-8.9) K/mcL - ABG Interpretation ABG results: PT/INR, D-dimer PT 12.1 Seconds (9.4-12.1) 08/08/16 19:30 - VTE Documentation of Mechanical Device: Intermittent pneumatic compression device Consult Discharge Plan - Plan Referrals: Amy Ryan MD [Primary Care Provider] -
[2016-08-13] MEDS: *HR* OxyCODONE/APAP 5/325 TABLET PO PRN ×4 (02:00→16:47)
[2016-08-13] MEDS: Vancomycin 1,000 MG in D5% in Water 250 ML IVPB SCH (03:52)
[2016-08-13 04:23] LABS: Hematocrit 24.3 % (35.3-44.9); Hemoglobin 7.4 g/dL (11.5-15.4); Immature Granulocytes % 2.6 % (0-4); Lymphocytes % 15.1 %; Mean Corpuscular HGB Conc 30.5 g/dL (31.6-35.5); Mean Corpuscular Hemoglobin 27.8 pg (28.0-33.3); Mean Corpuscular Volume 91.4 fL (83.0-100.0); Platelet Count 267 K/mcL (140-400); Red Blood Count 2.66 M/mcL (3.82-4.97); Red Cell Distribution Width 15.7 % (11.5-14.5)
[2016-08-13 04:24] LABS: Basophils % 0.9 %; Eosinophils # 0.3 K/mcL (0.0-0.6); Eosinophils % 7.1 %; Lymphocytes # 0.7 K/mcL (0.6-4.6); Monocytes # 0.6 K/mcL (0.0-1.3); Monocytes % 12.3 %; Neutrophils # 2.9 K/mcL (1.6-8.9)
[2016-08-13] MEDS: Ipratropium/Albuterol Neb 3 ML IH SCH ×4 (04:25→22:52)
[2016-08-13 04:37] LABS: Calcium 8.4 mg/dL (8.6-10.8); Potassium 4.4 mEq/L (3.5-4.5)
[2016-08-13] MEDS: Pregabalin 75 MG CAPSULE PO SCH ×3 (08:46→21:25)
[2016-08-13] MEDS: Magnesium Oxide 400 MG TABLET PO SCH (08:46)
[2016-08-13] MEDS: Furosemide 40 MG TABLET PO SCH (08:47)
[2016-08-13] MEDS: Aspirin Enteric Coated 81 MG Tablet PO SCH (08:47)
[2016-08-13] MEDS: Patient Taking Own Medication 1 EACH PO SCH (08:48)
[2016-08-13] MEDS: Folic Acid 1 MG TABLET PO SCH (08:48)
[2016-08-13] MEDS: Nystatin POWDER 30 GM BOTTLE TP SCH ×2 (08:48→21:28)
[2016-08-13] MEDS: Insulin LISPRO 300 UNITS/3 ML VIAL SQ SCH ×7 (09:40→21:26)
[2016-08-13] MEDS: *HR* Heparin 5,000 UNIT/ML VIAL SQ SCH ×2 (13:30→21:31)
--- NOTE | 2016-08-13 16:25 | Orthopedics Progress Note ---
Date of Encounter: 08/13/16 Time of Encounter: 16:00 - Assessment and Plan (1) Cellulitis Current Visit: Yes Status: Acute Dressings changed today and drain removed without complication. Change dressings daily with dry gauze and coban. Final cx results pending but presumptive MRSA. On contact precautions. Continue IV abx per hospitalist. Continue pain control per hospitalist. Keep arm elevated and work on ROM of hand/wrist. Qualifiers: Site of cellulitis: extremity Site of cellulitis of extremity: upper extremity Laterality: right Qualified Code(s): L03.113 - Cellulitis of right upper limb Subjective Principal diagnosis: POW#2 s/p distal humerus ORIF, cellulitis Interval history: Patient feeling much better today. No events overnight. Has increased ROM of hand compared to yesterday. Drain still intact. Objective Vital signs: Vital Signs Temp Pulse Resp BP Pulse Ox 08/13/16 15:58 18 94 L 08/13/16 15:47 97.5 F L 68 18 115/48 93 L 08/13/16 10:25 16 95 08/13/16 06:57 98.3 F 61 16 127/57 97 08/13/16 04:54 98.5 F 76 15 116/61 92 L 08/13/16 02:04 98.1 F 80 16 119/66 92 L 08/12/16 22:41 18 95 08/12/16 20:51 98.3 F 67 15 113/63 93 L Intake and Output 08/13/16 08/13/16 08/13/16 07:59 15:59 23:59 Intake Total 490 / 490 Output Total 1150 / 1150 Balance -660 / -660 Intake: IV Fluids 250 / 250 Vancocin 1,000 MG In 250 / 250 Dextrose 5% 250 ML @ 166. 667 mls/hr IVPB Q24H [facility] Rx#:[id number] Oral 240 / 240 Output: Catheter 1150 / 1150 Other: Meal Breakfast Percent of Meal Consumed 25% Stool Size Large Stool Consistency formed Stool Characteristics Normal for Patient Stool Color Brown Green # Bowel Movements 1 Blood Glucose* 152 Incision: clean and dry (dressings clean and intact. Erythema has decreased, sutures intact, no active drainage from incision, improved ROM of hand but still limited) - Labs CBC & BMP: 08/13/16 04:00 08/13/16 04:00 Labs: Abnormal lab results RBC 2.66 M/mcL (3.82-4.97) L 08/13/16 04:00 Hgb 7.4 g/dL (11.5-15.4) L 08/13/16 04:00 Hct 24.3 % (35.3-44.9) L 08/13/16 04:00 MCH 27.8 pg (28.0-33.3) L 08/13/16 04:00 MCHC 30.5 g/dL (31.6-35.5) L 08/13/16 04:00 RDW 15.7 % (11.5-14.5) H 08/13/16 04:00 ESR 48 mm/hr (0-15) H 08/13/16 04:10 BUN 29 mg/dL (7-20) H 08/13/16 04:00 Creatinine 1.13 mg/dL (0.57-1.11) H 08/13/16 04:00 Est GFR ( Amer) 57 (> 60) L 08/13/16 04:00 Est GFR (Non-Af Amer) 47 (> 60) L 08/13/16 04:00 Glucose 178 mg/dL (70-99) H 08/13/16 04:00 POC Glucose 153 (58-89) H 08/12/16 16:20 Hemoglobin A1c 6.2 % (-5.6) H 08/08/16 22:58 Calcium 8.4 mg/dL (8.6-10.8) L 08/13/16 04:00 C-Reactive Protein 15 mg/L (Less than 5) H 08/13/16 04:00 B-Natriuretic Peptide 140 pg/mL (0-100) H 08/08/16 19:41 Albumin 2.8 g/dL (3.5-5.0) L 08/08/16 19:30 Albumin/Globulin Ratio 0.9 (1.1-2.2) L 08/08/16 19:30 Vancomycin Trough 24.9 mcg/mL (10-20) H* 08/12/16 09:20 - VTE Documentation of Mechanical Device: Intermittent pneumatic compression device Consult Discharge Plan - Plan Instructions: Methicillin Resistant Staphylococcus Aureus (GEN) Referrals: Amy Ryan MD [Primary Care Provider] -
[2016-08-13] MEDS: Silvasorb 44.4 ML TUBE TP SCH (16:26)
[2016-08-13] MEDS: Insulin DETEMIR 100 UNIT/ML X5UNITS SQ SCH ×2 (16:26→21:26)
--- NOTE | 2016-08-13 16:49 | Internal Med Progress Note ---
Date of Encounter: 08/13/16 Time of Encounter: 16:47 - Assessment and plan (1) Cellulitis Current Visit: Yes Status: Acute Assessment and plan: Patient has right arm pain, swelling, with discharge. We will continue vancomycin, in light of isolation of gram-positive cocci in culture preliminary result. Follow orthopedic surgery evaluation and recommendations.. Patient is at high risk because she is on vancomycin, which need close monitoring. Management of drain s per orthopedic surgery. Possible MRSA, follow final result of culture. Qualifiers: Site of cellulitis: extremity Site of cellulitis of extremity: upper extremity Laterality: right Qualified Code(s): L03.113 - Cellulitis of right upper limb (2) LAUREN (acute kidney injury) Current Visit: Yes Status: Acute Assessment and plan: stable, we will continue monitoring. (3) DVT prophylaxis Current Visit: No Status: Acute - Time Spent With Patient 25 - 35 minutes - Subjective Interval history: The patient was seen and examined on rounds. She feeling better than yesterday, less pain. No fever. - Constitutional Vitals: Temp Pulse Resp BP Pulse Ox 97.5 F L 68 18 115/48 94 L 08/13/16 15:47 08/13/16 15:47 08/13/16 15:58 08/13/16 15:47 08/13/16 15:58 General appearance: Present: A&O X 3, obese, answers questions appropriately Exam: dressings clean and intact. Erythema has decreased, sutures intact, no active drainage from incision, improved ROM of hand but still limited - Head Head exam: Present: atraumatic, normocephalic - Eye Eye exam: Present: PERRL, conjuntiva pink, sclera anicteric Pupils: Present: PERRL - Neck Neck exam general surgery: Present: supple, trachea midline. Absent: lymphadenopathy - Respiratory Respiratory exam: Present: CTAB. Absent: accessory muscle use, rales, rhonchi, wheezes - Cardiovascular Cardiovascular exam: Present: RRR, +S1, +S2. Absent: diastolic murmur, gallop, rubs, systolic murmur - GI/Abdominal GI/Abdominal exam: Present: normal bowel sounds, soft, no peritoneal signs. Absent: distended, tenderness - Extremities Exam Extremities exam: Present: warm, radial pulses palpable and symetrical. Absent : calf tenderness, cyanotic, pedal edema - Neurological Exam Neurological exam: Present: CN II-XII intact, oriented X3, no focal deficits. Absent: pronater drift, facial droop, speech deficit - Skin Skin exam: Present: dry, intact Internal Medicine: Result - Labs CBC & Chem 7: 08/13/16 04:00 08/13/16 04:00 Labs: Short CBC 08/13/16 Range/Units 04:00 WBC 4.6 (4.3-11.1) K/mcL Hgb 7.4 L (11.5-15.4) g/dL Hct 24.3 L (35.3-44.9) % Plt Count 267 (140-400) K/mcL Neutrophils # 2.9 (1.6-8.9) K/mcL BMP 08/13/16 04:00 Sodium 139 Potassium 4.4 Chloride 102 Carbon Dioxide 27 BUN 29 H Creatinine 1.13 H Glucose 178 H Calcium 8.4 L - ABG Interpretation ABG results: PT/INR, D-dimer PT 12.1 Seconds (9.4-12.1) 08/08/16 19:30 - VTE Documentation of Mechanical Device: Intermittent pneumatic compression device Consult Discharge Plan - Plan Instructions: Methicillin Resistant Staphylococcus Aureus (GEN) Referrals: Amy Ryan MD [Primary Care Provider] -
[2016-08-14] MEDS: *HR* HYDROcodone/Acet 5/325 mg TABLET PO PRN ×2 (02:56→10:56)
[2016-08-14] MEDS: Vancomycin 1,000 MG in D5% in Water 250 ML IVPB SCH (03:08)
[2016-08-14 03:21] LABS: Basophils % 0.8 %; Eosinophils # 0.5 K/mcL (0.0-0.6); Eosinophils % 9.6 %; Hematocrit 24.9 % (35.3-44.9); Hemoglobin 7.7 g/dL (11.5-15.4); Immature Granulocytes % 3.8 % (0-4); Immature Platelets 3.6 % (1.1-6.1); Lymphocytes # 0.8 K/mcL (0.6-4.6); Lymphocytes % 15.6 %; Mean Corpuscular HGB Conc 30.9 g/dL (31.6-35.5); Mean Corpuscular Volume 90.5 fL (83.0-100.0); Mean Platelet Volume 10.9 fL (9.4-12.4); Monocytes # 0.5 K/mcL (0.0-1.3); Monocytes % 9.8 %; Nucleated Red Blood Cells 0.4 /100 WBC (0); Platelet Count 274 K/mcL (140-400); Red Blood Count 2.75 M/mcL (3.82-4.97); Red Cell Distribution Width 15.8 % (11.5-14.5); Segmented Neutrophils % 60.4 %
[2016-08-14 03:37] LABS: BUN/Creatinine Ratio 28 (6-26); Blood Urea Nitrogen 28 mg/dL (7-20); Calcium 8.6 mg/dL (8.6-10.8); Carbon Dioxide 27 mEq/L (19-29); Chloride 101 mEq/L (98-109); Glucose 156 mg/dL (70-99); Osmolality,Calculated 291 (280-300); Potassium 4.4 mEq/L (3.5-4.5); Sodium 136 mEq/L (136-145); eGFR For African Americans > 60 (> 60); eGFR For Non-African Americans 53 (> 60)
[2016-08-14] MEDS: Ipratropium/Albuterol Neb 3 ML IH SCH ×2 (04:57→10:54)
[2016-08-14] MEDS: *HR* Heparin 5,000 UNIT/ML VIAL SQ SCH (06:41)
[2016-08-14] MEDS: *HR* OxyCODONE/APAP 5/325 TABLET PO PRN (07:12)
[2016-08-14] MEDS: Insulin LISPRO 300 UNITS/3 ML VIAL SQ SCH ×2 (07:51→07:52)
[2016-08-14] MEDS: Pregabalin 75 MG CAPSULE PO SCH (07:52)
[2016-08-14] MEDS: Furosemide 40 MG TABLET PO SCH (07:52)
[2016-08-14] MEDS: Nystatin POWDER 30 GM BOTTLE TP SCH (07:52)
[2016-08-14] MEDS: Aspirin Enteric Coated 81 MG Tablet PO SCH (07:52)
[2016-08-14] MEDS: Insulin DETEMIR 100 UNIT/ML X5UNITS SQ SCH (07:52)
[2016-08-14] MEDS: Folic Acid 1 MG TABLET PO SCH (07:53)
[2016-08-14] MEDS: Patient Taking Own Medication 1 EACH PO SCH (07:54)
[2016-08-14] MEDS: Magnesium Oxide 400 MG TABLET PO SCH (07:54)
--- NOTE | 2016-08-14 09:22 | Orthopedics Progress Note ---
Date of Encounter: 08/14/16 Time of Encounter: 09:00 - Assessment and Plan (1) Cellulitis Status: Acute Dressings clean and intact. Small amount of bloody drainage on dressings from the drain site. Otherwise incision healing well. Change dry gauze dressings daily. Keep clean and covered. Final cx results MRSA. Continue IV abx per hospitalist. Continue pain control per hospitalist. Keep arm elevated and work on ROM of hand/wrist. Can DC to ECF with IV abx through PICC line. Will need follow up with Sandie Gudino PA-C and Sessions on Thursday. When arrives this afternoon nurse will call office to coordinate these appts. Qualifiers: Site of cellulitis: extremity Site of cellulitis of extremity: upper extremity Laterality: right Qualified Code(s): L03.113 - Cellulitis of right upper limb Subjective Principal diagnosis: POW#2 s/p distal humerus ORIF, cellulitis Interval history: Patient feeling better today. Sitting at bedside today. No events overnight. Has increased ROM of hand compared to yesterday. Objective Vital signs: Vital Signs Temp Pulse Resp BP Pulse Ox 08/14/16 06:54 98.1 F 70 16 124/54 94 L 08/14/16 04:00 98.0 F 76 17 146/68 93 L 08/14/16 00:10 98.0 F 76 16 124/62 93 L 08/13/16 22:52 16 98 08/13/16 20:00 97.6 F 82 17 134/61 95 08/13/16 15:58 18 94 L 08/13/16 15:47 97.5 F L 68 18 115/48 93 L 08/13/16 10:25 16 95 Intake and Output 08/13/16 08/14/16 08/14/16 23:59 07:59 15:59 Intake Total 925 / 925 Output Total 900 / 900 Balance Intake: IV Fluids 250 / 250 Vancocin 1,000 MG In 250 / 250 Dextrose 5% 250 ML @ 166. 667 mls/hr IVPB Q24H [facility] Rx#:[id number] Oral 675 / 675 Output: Catheter 900 / 900 Other: Blood Glucose* 190 160 Incision: clean and dry (Incision healing well, sutures intact, no drainage, minimal erythema) - Labs CBC & BMP: 01/26/17 03:05 08/14/16 03:05 Labs: Abnormal lab results RBC 2.75 M/mcL (3.82-4.97) L 08/14/16 03:05 Hgb 7.7 g/dL (11.5-15.4) L 08/14/16 03:05 Hct 24.9 % (35.3-44.9) L 08/14/16 03:05 MCHC 30.9 g/dL (31.6-35.5) L 08/14/16 03:05 RDW 15.8 % (11.5-14.5) H 08/14/16 03:05 Nucleated RBCs/100 WBC 0.4 /100 WBC (0) H 08/14/16 03:05 ESR 48 mm/hr (0-15) H 08/13/16 04:10 BUN 28 mg/dL (7-20) H 08/14/16 03:05 Est GFR (Non-Af Amer) 53 (> 60) L 08/14/16 03:05 BUN/Creatinine Ratio 28 (6-26) H 08/14/16 03:05 Glucose 156 mg/dL (70-99) H 08/14/16 03:05 POC Glucose 190 (58-89) H 08/13/16 19:04 Hemoglobin A1c 6.2 % (-5.6) H 08/08/16 22:58 C-Reactive Protein 15 mg/L (Less than 5) H 08/13/16 04:00 B-Natriuretic Peptide 140 pg/mL (0-100) H 08/08/16 19:41 Albumin 2.8 g/dL (3.5-5.0) L 08/08/16 19:30 Albumin/Globulin Ratio 0.9 (1.1-2.2) L 08/08/16 19:30 Vancomycin Trough 24.9 mcg/mL (10-20) H* 08/12/16 09:20 - VTE Documentation of Mechanical Device: Intermittent pneumatic compression device Consult Discharge Plan - Plan Instructions: Methicillin Resistant Staphylococcus Aureus (GEN) Referrals: Amy Ryan MD [Primary Care Provider] - Prescriptions: Oxycodone HCl/Acetaminophen [Percocet 7.5-325 mg Tablet] 1 tab PO QID PRN #20 tablet PRN Reason: Pain Vancomycin [Vancocin (wt based)] 1,000 mg IV DAILY 8 Days
--- NOTE | 2016-08-14 11:18 | Discharge Summary ---
Date of Encounter: 08/14/16 Time of Encounter: 11:15 - Discharge Diagnosis (1) Cellulitis Priority: Primary Status: Acute Qualifiers: Site of cellulitis: extremity Site of cellulitis of extremity: upper extremity Laterality: right Qualified Code(s): L03.113 - Cellulitis of right upper limb (2) LAUREN (acute kidney injury) Priority: Secondary Status: Acute (3) DVT prophylaxis Priority: Secondary Status: Acute - Discharge Medications Prescriptions: Oxycodone HCl/Acetaminophen [Percocet 7.5-325 mg Tablet] 1 tab PO QID PRN #20 tablet PRN Reason: Pain Vancomycin [Vancocin (wt based)] 1,000 mg IV DAILY 8 Days Home Medications: Aspirin [Adult Low Dose Aspirin EC] 81 mg PO DAILY 08/22/15 [History] Enalapril Maleate [Vasotec] 10 mg PO BID 08/22/15 [History] Insulin Glargine,Hum.rec.anlog [Lantus Solostar] 110 unit SQ QAM 08/22/15 [ History] Pioglitazone HCl [Actos] 30 mg PO DAILY 08/22/15 [History] Pregabalin [Lyrica] 150 mg PO TID 08/22/15 [History] Simvastatin [Zocor] 20 mg PO DAILY 08/22/15 [History] Ferrous Sulfate 325 mg PO BID #60 tablet 08/28/15 [Rx] Folic Acid 1 mg PO DAILY #90 tablet 09/24/15 [Rx] Cyanocobalamin (B-12) [Vitamin B12] 1 ml IM QMONTH 07/24/16 [History] Levocetirizine Dihydrochloride [Xyzal] 5 mg PO DAILY 07/24/16 [History] Nystatin POWDER [Nystop] 1 appl TP BID 07/24/16 [History] Docusate [Colace] 100 mg PO BID #40 capsule 07/28/16 [Rx] Magnesium Oxide [Mag-Ox] 400 mg PO DAILY #20 tablet 07/28/16 [Rx] Sennosides [Senna] 8.6 mg PO BID #40 tablet 07/28/16 [Rx] Furosemide [Lasix] 40 mg PO QAM 08/08/16 [History] Omeprazole [PriLOSEC] 40 mg PO DAILY 08/08/16 [History] Oxycodone HCl/Acetaminophen [Percocet 7.5-325 mg Tablet] 1 tab PO QID PRN #20 tablet 08/14/16 [Rx] Vancomycin [Vancocin (wt based)] 1,000 mg IV DAILY 8 Days 08/14/16 [Rx] Allergies/Adverse Reactions: Allergies No Known Allergies Allergy (Verified 01/10/16 12:42) Date of admission: 08/09/16 19:16 Primary care physician: Amy Ryan, Consults: 08/11/16 20:37 Consult to Occupational Therapy [CONS] Routine Comment: active assist & PROM fingers to shoulder 08/12/16 04:38 Consult to Wound Care [CONS] Routine Reason for Consult: decubitus ulcer on buttocks and right heel with no dressing change orders.Currently is dressed curlex/4x4 on heel and Allevyn on buttocks. Call Completed: No 08/12/16 11:00 Consult to Invasive Line Access Team [CONS] Routine Reason for Consult: Picc Line Insertion Line Type: PICC 08/12/16 11:01 Consult to [facility] [CONS] Routine Reason for SW Consult: iv atb at d/c Discharging clinician: Karan Levine Anticipated date of discharge: 08/14/16 - Patient Status Disposition: Transfer SNF Condition: Fair Functional capacity at discharge: bed bound Overall status at discharge: patient is progressing back to baseline - Discharge Instructions Instructions: Methicillin Resistant Staphylococcus Aureus (GEN) Follow Up With: Amy Ryan MD [Primary Care Provider] - - Diet and Activity Activity: as per physical therapy Diet: advance to your usual diet Interval History: 75 Y/O F with Morbid Obesity, CHF, COPD, DM, s/p ORIF for R humeral fracture presented with fever, redness and pain of her R UE. Additional symptom include cought hat started this morning, as well as flu-like symptoms. Physical Exam is significant for fever, no tachycardia, BP WNL. O2Sat wnl. Upper extremity with diffuse redness surrounding R humerl wound through it lenght with tenderness, incision is intact, no fluctuancy. Additionally, she has Right heel ulcer, healed, left little toe stitches intact , sacral decubitus ulcers. Chest exam revealed diffuse wheezing, heart sounds S1, S2, only, no m/g/r. Abdomen is obese, not tender. Labs and Imaging reviewed: NO leukocytosis, HB was at baseline, HYperkalemia with LAUREN. EKG with supraventricular rhythm, no Peaked T waves, no wide QRS complexes. CXR no acute cardiopulmonary process. Assessment/Plan: Cellulitis, LAUREN, Hyperkalemia, Bronchitis, Very gentle IVF hydration , monitor chem, renally dose Vanco and Zosyn (pharmacy to dose), follow Vanco trough, Check Flu swab, RUE CT to rule out collection/osteo. Check For flu, give duonebs and prednisone. Resume home other home meds. Hospital course: Ms. Aguayo is a 75 year old female Admitted due to right upper extremity for right eighth, with pain and swelling and discharge and history of recent orthopedic surgery (right distal humerus ORIF). Initially was started on vancomycin and Zosyn. Antibiotics were the escalated to iv vancomycin only due to isolation of gram-positive bacteria. 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 The patient will continue with 2 weeks of IV antibiotics with IV vancomycin, she will be discharged today to a rehabilitation center for continuity of care. Dressings clean and intact. Small amount of bloody drainage on dressings from the drain site. Otherwise incision healing well. The knee with pain control. Patient will follow up on August [address] amanda and LEV Gudino. Date of procedure: 08/11/16 Pre-op diagnosis: Right arm/elbow postoperative wound infection Post-op diagnosis: other (Right postoperative wound hematoma) Procedure: Right arm incision of postoperative wound with drainage of hematoma Anesthesia: CRISTIANO Surgeon: Ignacio Stafford Estimated blood loss (cc): 100 Specimen: Cultures Condition: stable Disposition: PACU Procedure in Detail: Indications: Patient 75 year old [id number] woman who is now postoperative week #2 status post a right distal humerus ORIF. The patient was sent in to the ER from her senior care with apparent cellulitis of postoperative wound with drainage. Despite 3 days of IV antibiotics, the wound continued to drain serous fluid, and with erythema. The patient's white blood count decreased, however her ESR and CRP increased. She was indicated for a washout of her wound. Procedure: The patient was on IV antibiotics from floor. She was brought to operating room and placed or table in supine position where she underwent general anesthesia. The patient's skin joseph were removed. There was an area at the proximal end of the wound was serous drainage, but slightly soupy and was not fully healed. The right upper extremity was prepped and draped in usual fashion. A timeout was performed. A hemostat was used to open the wound which was draining. No purulence was encountered, only hematoma. Cultures were sent for Gram stain, aerobic and anaerobic. The wound was extended, making an approximately 15 cm long. The wound was opened up over down to the triceps fascia. Old Vicryl sutures were removed with hemostat. The wound was copiously irrigated with a pulse lavage. I also explored the medial side where there was some ecchymosis, but no fluid was encountered. A large Hemovac drain was then placed from the proximal end of the wound running down distally over the triceps fascia and exiting at the lateral aspect of the elbow. There was a constant bloody ooze since the patient was on aspirin and heparin. I used Bovie electrocautery along with Damian to control hemostasis. The deep fat layer was loosely closed with 0 Vicryl sutures, 2-0 Vicryl subcutaneous daily, followed by 2-0 nylon vertical mattress and simple sutures for the skin. Sterile dressings applied, Hemovac was connected. The patient was extubated and taken to recovery room stable condition. She will continue IV antibiotics and we will check the culture results. - Time Spent with Patient Total time spent providing and/or coordinating discharge services: Greater than 30 minutes - Constitutional Vitals: Temp Pulse Resp BP Pulse Ox 98.1 F 70 18 124/54 97 08/14/16 06:54 08/14/16 06:54 08/14/16 10:57 08/14/16 06:54 08/14/16 10:57 General appearance: Present: A&O X 3, obese, answers questions appropriately - Head Head exam: Present: atraumatic, normocephalic - Eye Eye exam: Present: PERRL, conjuntiva pink, sclera anicteric Pupils: Present: PERRL - Neck Neck exam general surgery: Present: supple, trachea midline. Absent: lymphadenopathy - Respiratory Respiratory exam: Present: CTAB. Absent: accessory muscle use, rales, rhonchi, wheezes - Cardiovascular Cardiovascular exam: Present: RRR, +S1, +S2. Absent: diastolic murmur, gallop, rubs, systolic murmur - GI/Abdominal GI/Abdominal exam: Present: normal bowel sounds, soft, no peritoneal signs. Absent: distended, tenderness - Extremities Exam Extremities exam: Present: warm, radial pulses palpable and symetrical. Absent : calf tenderness, cyanotic, pedal edema - Neurological Exam Neurological exam: Present: CN II-XII intact, oriented X3, no focal deficits. Absent: pronater drift, facial droop, speech deficit - Skin Skin exam: Present: dry, intact - VTE Documentation of Mechanical Device: Intermittent pneumatic compression device
--- NOTE | 2016-08-14 11:25 | Physician Discharge Referral ---
ExtendedCare Referral Info Transfer To: SNF Provider in Charge after Transfer: PCP Institutional Level of Care: Skilled - Diagnosis (1) Cellulitis Status: Acute (2) LAUREN (acute kidney injury) Status: Acute (3) DVT prophylaxis Status: Acute - Transfer Medications Prescriptions: Oxycodone HCl/Acetaminophen [Percocet 7.5-325 mg Tablet] 1 tab PO QID PRN #20 tablet PRN Reason: Pain Vancomycin [Vancocin (wt based)] 1,000 mg IV DAILY 8 Days Home Medications: Aspirin [Adult Low Dose Aspirin EC] 81 mg PO DAILY 08/22/15 [History] Enalapril Maleate [Vasotec] 10 mg PO BID 08/22/15 [History] Insulin Glargine,Hum.rec.anlog [Lantus Solostar] 110 unit SQ QAM 08/22/15 [ History] Pioglitazone HCl [Actos] 30 mg PO DAILY 08/22/15 [History] Pregabalin [Lyrica] 150 mg PO TID 08/22/15 [History] Simvastatin [Zocor] 20 mg PO DAILY 08/22/15 [History] Ferrous Sulfate 325 mg PO BID #60 tablet 08/28/15 [Rx] Folic Acid 1 mg PO DAILY #90 tablet 09/24/15 [Rx] Cyanocobalamin (B-12) [Vitamin B12] 1 ml IM QMONTH 07/24/16 [History] Levocetirizine Dihydrochloride [Xyzal] 5 mg PO DAILY 07/24/16 [History] Nystatin POWDER [Nystop] 1 appl TP BID 07/24/16 [History] Docusate [Colace] 100 mg PO BID #40 capsule 07/28/16 [Rx] Magnesium Oxide [Mag-Ox] 400 mg PO DAILY #20 tablet 07/28/16 [Rx] Sennosides [Senna] 8.6 mg PO BID #40 tablet 07/28/16 [Rx] Furosemide [Lasix] 40 mg PO QAM 08/08/16 [History] Omeprazole [PriLOSEC] 40 mg PO DAILY 08/08/16 [History] Oxycodone HCl/Acetaminophen [Percocet 7.5-325 mg Tablet] 1 tab PO QID PRN #20 tablet 08/14/16 [Rx] Vancomycin [Vancocin (wt based)] 1,000 mg IV DAILY 8 Days 08/14/16 [Rx] Allergies/Adverse Reactions: Allergies No Known Allergies Allergy (Verified 01/10/16 12:42) - Respiratory Orders Oxygen / L per min (2 prn) Smoking Cessation: Smoking cessation has been advised. For more information, call the [place] Tobacco Quit Line at 1-116-EYFB-NOW. - Advance Directives Code Status: Full Code - Mobility Orders Other (As per PT) - Rehabiliation Orders Rehab Potential: Fair Rehab Orders: ROM Exercises, Evaluation for Physical Therapy, Evaluation for Occupational Therapy - Diet Orders Regular CERTIFICATION: I certify that the transfer of the above named patient to an Extended Care Facility is necessary for the continuing treatment of the diagnosis listed. The above information is true and accurate reflection of patient's current condition. Confidential - Redisclosure prohibited without a patient's written consent.
[2016-08-14 11:36] VITALS: BP 128/60
[2016-08-14] MEDS: Silvasorb 44.4 ML TUBE TP SCH (13:42)
[2016-08-14] MEDS ORDERED: Aminoglycoside Consult 1 EACH MC ONE (14:22)
== END 2016-08-14 14:23 | DRG 863 ==
LOC: EMEROO 18:54 → 3NENU 18:54 → SUATTDRO 08-09 19:16
PROVIDERS: ADMIT Internal Medicine; ATTEND Internal Medicine